=== PATIENT | male | born 1950 | race African-American/Black ===

== ENCOUNTER 2020-07-08 10:54 | Emergency (ER) | payer OTHER ==
[2020-07-08 11:48] LABS: Urine Bacteria >50 /HPF (NONE SEEN); Urine RBC >50 /HPF (NONE SEEN)
[2020-07-08 11:55] LABS: Absolute Lymphocytes (CBC) 1.2 K/uL (0.7-4.9); Basophils % 0.8 % (0-1.3); Hematocrit 28.1 % (39.6-49.0); Lymphocytes % 15.7 % (15.3-44.8); MPV 7.1 fL (7.6-11.3); RBC Red Blood Cell Count 3.47 M/uL (4.33-5.43)
[2020-07-08 11:58] LABS: Protime INR 1.97
[2020-07-08 12:09] LABS: Potassium 3.8 mmol/L (3.5-5.1)
[2020-07-08] MEDS ORDERED: CEFTRIAXONE/SWI 1gm 1 GM/10 ML SYR ONE (13:23)
--- NOTE | 2020-07-08 14:47 | ER ---
Nurse's Notes [facility] Name: Eliezer Menjivar Age: 69 yrs Sex: Male : 1950 Arrival Date: 07/08/2020 Time: 11:06 Bed 19 Private MD: Diagnosis: Hematuria, unspecified;Urinary tract infection, site not specified Presentation: 07/08 11:06 Chief complaint: EMS states: "pt is from [facility] and the facility reported jd3 that he was having some blood noted in his Menendez cath yesterday, they irrigated it and it was ok, but they went to change it out today and they noticed dark red blood noted in the cath. pt reported mild pain.". Coronavirus screen: At this time, the client does not indicate any symptoms associated with coronavirus-19. Ebola Screen: Patient negative for fever greater than or equal to 101.5 degrees Fahrenheit, and additional compatible Ebola Virus Disease symptoms. Initial Sepsis Screen: Does the patient meet any 2 criteria? No. Patient's initial sepsis screen is negative. Does the patient have a suspected source of infection? No. Patient's initial sepsis screen is negative. Risk Assessment: Do you want to hurt yourself or someone else? Patient reports no desire to harm self or others. Onset of symptoms was July 08, 2020. 11:06 Method Of Arrival: EMS: [facility] jd3 11:06 Acuity: REYNALDO 3 jd3 Historical: - Allergies: 11:14 No Known Allergies; jd3 - PMHx: 11:14 CVA; CHF; jd3 - Immunization history:: Adult Immunizations up to date. - Social history:: Smoking status: Patient denies any tobacco usage or history of. - Family history:: not pertinent. - Hospitalizations: : No recent hospitalization is reported. Screenin:19 Abuse screen: Denies threats or abuse. Nutritional screening: No deficits noted. jd3 Tuberculosis screening: No symptoms or risk factors identified. Fall Risk Ambulatory Aid- None/Bed Rest/Nurse Assist (0 pts). Gait- Normal/Bed Rest/Wheelchair (0 pts) Mental Status- Oriented to own ability (0 pts). Total Huggins Fall Scale indicates No Risk (0-24 pts). Assessment: 11:17 General: Appears in no apparent distress. uncomfortable, Behavior is calm, cooperative, jd3 appropriate for age. Pain: Complains of pain in abdomen Quality of pain is described as aching, pressure. Neuro: Level of Consciousness is awake, alert, obeys commands, Oriented to person, place, time, situation. Cardiovascular: Denies chest pain, Capillary refill < 3 seconds Patient's skin is warm and dry. Respiratory: Airway is patent Respiratory effort is even, unlabored, Respiratory pattern is regular, symmetrical. GI: No signs and/or symptoms were reported involving the gastrointestinal system. : Menendez in place Urine is travis blood. EENT: No signs and/or symptoms were reported regarding the EENT system. Derm: Skin is intact, Skin is dry, Skin is normal, Skin temperature is warm. Musculoskeletal: Circulation, motion, and sensation intact. Range of motion: intact in all extremities. 13:01 Reassessment: Patient appears in no apparent distress at this time. No changes from jd3 previously documented assessment. Patient and/or family updated on plan of care and expected duration. Pain level reassessed. Patient is alert, oriented x 3, equal unlabored respirations, skin warm/dry/pink. 14:08 Reassessment: Patient appears in no apparent distress at this time. Patient and/or jd3 family updated on plan of care and expected duration. Pain level reassessed. Patient is alert, oriented x 3, equal unlabored respirations, skin warm/dry/pink. catheter irrigated. pink colored urine now with no obstruction at the time. 15:14 Reassessment: Patient appears in no apparent distress at this time. Patient and/or jd3 family updated on plan of care and expected duration. Pain level reassessed. Patient is alert, oriented x 3, equal unlabored respirations, skin warm/dry/pink. report attempt made to [facility] reporting they need a fax of the clinical. secretary administrative assistant notified. 16:27 Reassessment: [facility] en route ETA 20 minutes. iw 16:43 Reassessment: Patient appears in no apparent distress at this time. Patient and/or jd3 family updated on plan of care and expected duration. Pain level reassessed. Patient is alert, oriented x 3, equal unlabored respirations, skin warm/dry/pink. Vital Signs: 11:14 BP 108 / 71; Pulse 79; Resp 16 S; Temp 99.1(O); Pulse Ox 100% on R/A; Weight 77.11 kg jd3 (R); Height 6 ft. 2 in. (187.96 cm) (R); Pain 6/10; 13:01 BP 110 / 70; Pulse 68; Resp 17 S; Pulse Ox 100% on R/A; jd3 14:09 BP 120 / 73; Pulse 69; Resp 17 S; Pulse Ox 100% on R/A; jd3 15:14 BP 103 / 64; Pulse 65; Resp 17 S; Pulse Ox 100% on R/A; jd3 16:43 BP 109 / 65; Pulse 64; Resp 17 S; Pulse Ox 97% on R/A; jd3 11:14 Body Mass Index 21.83 (77.11 kg, 187.96 cm) jd3 ED Course: 11:06 Patient arrived in ED. jd3 11:06 Mauri Calderon, DARYL is Primary Nurse. jd3 11:06 Armond Lechuga MD is Attending Physician. rn 11:11 Triage completed. jd3 11:15 Arm band placed on. jd3 11:20 Patient has correct armband on for positive identification. Bed in low position. Call jd3 light in reach. Side rails up X 1. Pulse ox on. NIBP on. 11:50 Inserted saline lock: 20 gauge in left antecubital area, using aseptic technique. Blood jd3 collected. 12:26 patient's family member Franchesca called to leave her phone number in case we had any eb questions, [phone]. 14:23 No provider procedures requiring assistance completed. jd3 17:14 IV discontinued, intact, bleeding controlled, No redness/swelling at site. Pressure jd3 dressing applied. Administered Medications: 13:12 Drug: Rocephin 1 grams Route: IV; Rate: calculated rate; Site: left antecubital; jd3 13:45 Follow up: Response: No adverse reaction; IV Status: Completed infusion; IV Intake: 24wade5 Intake: 13:45 IV: 10ml; Total: 10ml. jd3 Outcome: 14:45 Discharge ordered by . rn 17:13 Discharged to [facility]. Transfer form completed. report given to [facility] jd3 crew 17:13 Condition: stable 17:13 Discharge instructions given to patient, [facility], EMS, Instructed on discharge instructions, follow up and referral plans. medication usage, Demonstrated understanding of instructions, follow-up care, medications, Prescriptions given X 1. 17:14 Patient left the ED. bert Addendum: 07/11/2020 16:45 Addendum: Culture Results: Positive urine culture. Faxed results to [address] (Spoke to Nurse Asha). Signatures: Carri Menjivar RN RN iw Nieto, Roman, MD MD rn Calderon, Audri, RN RN aa5 Mauri Calderon RN RN Brea Durham
--- NOTE | 2020-07-08 14:47 | EDPHYS ---
Physician Documentation [facility] Name: Eliezer Menjivar Age: 69 yrs Sex: Male : 1950 Arrival Date: 07/08/2020 Time: 11:06 Bed 19 Private MD: ED Physician Armond Lechuga HPI: 07/08 11:27 This 69 yrs old Black Male presents to ER via EMS with complaints of blood in urine. rn 11:27 The patient presents with urinary symptoms, hematuria. rn 11:28 Onset: The symptoms/episode began/occurred yesterday. Modifying factors: The symptoms rn are alleviated by nothing, the symptoms are aggravated by nothing. Severity of symptoms: At their worst the symptoms were mild, in the emergency department the symptoms are unchanged. It is unknown whether or not the patient has had similar symptoms in the past. The patient has not recently seen a physician. Per EMS report, urine catheter changed, and since then noticed blood in bag, reports was feeling fine prior to change, didn't know why was being changed, now here because of blood. Denies abd pain, no blood thinners. Reports mild irritation at penis.. Historical: - Allergies: 11:14 No Known Allergies; jd3 - PMHx: 11:14 CVA; CHF; jd3 - Immunization history:: Adult Immunizations up to date. - Social history:: Smoking status: Patient denies any tobacco usage or history of. - Family history:: not pertinent. - Hospitalizations: : No recent hospitalization is reported. ROS: 11:28 Constitutional: Negative for fever, chills, and weight loss, Eyes: Negative for injury, rn pain, redness, and discharge, Cardiovascular: Negative for chest pain, palpitations, and edema, Respiratory: Negative for shortness of breath, cough, wheezing, and pleuritic chest pain, Abdomen/GI: Negative for abdominal pain, nausea, vomiting, diarrhea, and constipation, Back: Negative for injury and pain, : + penile pain and blood in urine MS/Extremity: Negative for injury and deformity, Skin: Negative for injury, rash, and discoloration, Neuro: Negative for headache, weakness, numbness, tingling, and seizure. Exam: 11:28 Constitutional: This is a well developed, well nourished patient who is awake, alert, rn and in no acute distress. Head/Face: Normocephalic, atraumatic. Cardiovascular: Regular rate and rhythm. No pulse deficits. Respiratory: No increased work of breathing, no retractions or nasal flaring. Abdomen/GI: soft, non-tender Male : + bradshaw catheter in place, dark blood in urine MS/ Extremity: Pulses equal, no cyanosis. Neuro: Awake and alert, GCS 15 Vital Signs: 11:14 BP 108 / 71; Pulse 79; Resp 16 S; Temp 99.1(O); Pulse Ox 100% on R/A; Weight 77.11 kg jd3 (R); Height 6 ft. 2 in. (187.96 cm) (R); Pain 6/10; 13:01 BP 110 / 70; Pulse 68; Resp 17 S; Pulse Ox 100% on R/A; jd3 14:09 BP 120 / 73; Pulse 69; Resp 17 S; Pulse Ox 100% on R/A; jd3 15:14 BP 103 / 64; Pulse 65; Resp 17 S; Pulse Ox 100% on R/A; jd3 16:43 BP 109 / 65; Pulse 64; Resp 17 S; Pulse Ox 97% on R/A; jd3 11:14 Body Mass Index 21.83 (77.11 kg, 187.96 cm) jd3 MDM: 11:06 Patient medically screened. rn 14:43 Differential diagnosis: UTI, Bradshaw catheter problem, urethritis, traumatic bradshaw credit intern. Data reviewed: vital signs, nurses notes, lab test result(s), and as a result, I will discharge patient. Counseling: I had a detailed discussion with the patient and/or guardian regarding: the historical points, exam findings, and any diagnostic results supporting the discharge/admit diagnosis, lab results, the need for outpatient follow up, to return to the emergency department if symptoms worsen or persist or if there are any questions or concerns that arise at home. Response to treatment: the patient's symptoms have markedly improved after treatment, and as a result, I will discharge patient. Special discussion: I discussed with the patient/guardian in detail that at this point there is no indication for admission to the hospital. It is understood, however, that if the symptoms persist or worsen the patient needs to return immediately for re-evaluation. ED course: Urine cleared easily after irrigation, + UTI, stable vitals, will dc home with abx. . 02/21 11:11 Order name: Urine Culture rn 07/08 11:11 Order name: Urine Microscopic Only rn 07/08 11:11 Order name: CBC with Diff rn 07/08 11:11 Order name: Basic Metabolic Panel rn 07/08 11:11 Order name: Protime (+inr) rn 07/08 11:11 Order name: Ptt, Activated rn 07/08 11:12 Order name: Urine Culture EDW[place] 07/08 11:12 Order name: Urine Microscopic Only; Complete Time: 12:55 [facility] 07/08 11:12 Order name: CBC with Automated Diff; Complete Time: 12:55 [facility] 07/08 11:12 Order name: Basic Metabolic Panel; Complete Time: 12:55 [facility] 07/08 11:12 Order name: Protime (+INR); Complete Time: 12:55 [facility] 07/08 11:12 Order name: PTT, Activated Partial Thromb; Complete Time: 12:55 [facility] 07/08 11:11 Order name: IV Start; Complete Time: 11:50 rn 07/08 11:11 Order name: Bladder Irrigation; Complete Time: 14:23 rn Administered Medications: 13:12 Drug: Rocephin 1 grams Route: IV; Rate: calculated rate; Site: left antecubital; jd3 13:45 Follow up: Response: No adverse reaction; IV Status: Completed infusion; IV Intake: [id number] Disposition: 07/08/20 14:45 Discharged to Home. Impression: Hematuria, unspecified, Urinary tract infection, site not specified. - Condition is Stable. - Discharge Instructions: Hematuria, Adult, Urinary Tract Infection, Adult. - Prescriptions for cefpodoxime 100 mg Oral Tablet - take 2 tablet by ORAL route every 12 hours for 10 days take with food; 40 tablet. - Medication Reconciliation Form, Thank You Letter, Antibiotic Education, Prescription Opioid Use, SBAR form form. - Follow up: Private Physician; When: As needed; Reason: Recheck today's complaints, Re-evaluation by your physician. - Problem is new. - Symptoms have improved. Signatures: Dispatcher [employer] EDMS Armond Lechuga MD MD rn Davies, Jonathon, RN RN jd3 Corrections: (The following items were deleted from the chart) 11:50 11:11 Urine Dipstick-Ancillary ordered. rn jd3 17:14 14:45 07/08/2020 14:45 Discharged to Home. Impression: Hematuria, unspecified; Urinary jd3 tract infection, site not specified. Condition is Stable. Forms are Medication Reconciliation Form, Thank You Letter, Antibiotic Education, Prescription Opioid Use. Follow up: Private Physician; When: As needed; Reason: Recheck today's complaints, Re-evaluation by your physician. Problem is new. Symptoms have improved. alex
[2020-07-08 17:54] VITALS: TEMP 99.1
[2020-07-08 17:59] VITALS: BP 109/65; O2SAT 97
== END 2020-07-08 17:14 | disposition home or self-care (01) ==
LOC: ER 10:54
DX: N39.0 Urinary tract infection, site not specified (principal)
CPT/HCPCS: 96365; 87088; 85025; 87086; 80048; 36415; 85610; 85730; 87077 ×2; 87186 ×2; 81015; 99284; J0696

== ENCOUNTER 2020-08-29 10:43 | Inpatient (IN) | payer OTHER ==
--- OUTSIDE RECORDS SUMMARY | 2020-08-29 10:49 | XMS REPORT | Continuity of Care Document ---
:1950 Author Organization [facility] t Address [address] [place] [address] Care Team Providers Name Role Phone Joseph Rogers MD Attending Clinician Martita SANDERS, Manjula Attending Clinician Payers Payer Name Policy Type Policy Number Effective Date Expiration Date S ource Problems This patient has no known problems. Allergies, Adverse Reactions, Alerts Allergy Allergy Status Severity Reaction(s) Onset Inactive Treating Comm ents Source Name Type Date Date Clinician No Known DA Active U 2019-05 [facility] 2-04 Clear s 00:00: Caldera [address] [place] [address] No Known DA Active U 2019-05 [facility] Allergie 1-21 Clear s 00:00: Caldera 00 [facility] Medications This patient has no known medications. Procedures This patient has no known procedures. Encounters Start End Encounter Admission Attending Care Care Encounter Source Date/Time Date/Time Type Type Clinicians Facility Department ID 2019-08-15 2019-08-15 Refill CATRACHO Rogers [id number] 00:00:00 00:00:00 Joseph Caldwell [facility] [id number] Cancer 4.2.7.2.686 Center - [id number] MDA 204 2019-08-15 2019-08-15 Refill Yamilet Anders [id number] 00:00:00 [facility]:00:00 [facility] 350.1.13.10 Cancer 4.2.7.2.686 [facility] [id number] [facility] 204 2019-08-15 2019-08-15 Telephone Yamilet Anders [id number] 00:00:00 00:00:00 [facility] 350.1.13.10 [facility] 4.2.7.2.686 [id number] 082019-01-13 2019-01-13 Office Sue [facility] [id number] 13:25:13 14:31:06 Visit Joseph Caldwell [facility] [id number] Cancer 4.2.7.2.686 [facility] [id number] [facility] Results Test Description Test Time Test Comments Results Result Comments Source COVID 19 Asymptomatic IH AG 2020-05-18 06:28:00 Test Item Value Reference Range Interpretation Comme nts COVID 19 Asymptomatic IH AG Negative Negative A negative result is presumptive and (test code = COVNONPUIAG) sh ould be confirmedwith an FDA authorized mole cular assay, if necessary forpa tient management.A positive result does not rule out co-infections w ithother pathogens.This test detects both viable (live) a nd non-viable,SARS -CoV, and SARS-CoV-2. Test performanc e depends on theamount of vi joby (antigen) in the sample.This leanna t has not been FDA cleared or appr prachi; the test hasbeen authori zed by FDA under an Emergency Use A uthorization(EUA) for use by juanato deshawn certified under the CLIA thatme et the requirements to perform mode rate, high or waivedcomplexit y tests. COMMENTS: FOR POST ACUTE SNF PLACEMENTRENAL FUNCTION [id number] 08:26:00 Test Item Value Reference Range Interpretation Comments SODIUM (test code = NA) 131 mEq/L 134-147 L POTASSIUM (test code = 4.8 mEq/L 3.4-5.0 N K) CHLORIDE (test code = 98 mEq/L 100-108 L CL) CARBON DIOXIDE (test 24 mEq/l 21-33 N code = CO2) ANION GAP (test code = 14 0-20 N GAP) GLUCOSE (test code = 79 mg/dL 70-110 N GLU) BLOOD UREA NITROGEN 46 mg/dL 7-18 H (test code = BUN) GLOMERULAR FILTRATION 9.2 80-90 L Units of measure = RATE (test code = GFR) ml/mi n/1.73 m2 CREATININE (test code = 6.1 mg/dL 0.6-1.3 H CREAT) ALBUMIN (test code = 3.20 g/dL 3.4-5.0 L ALB) CALCIUM (test code = CA) 9.7 mg/dL 8.0-10.5 N PHOSPHOROUS (test code = 3.6 MG/DL 2.5-4.9 N PHOS) CBC W/AUTO [id number] 07:56:00 Test Item Value Reference Range Interpretation Comments WHITE BLOOD CELL (test code = 9.3 x10 3/uL 4.5-11.0 N WBC) RED BLOOD CELL (test code = 3.09 x10 6/uL 4.00-5.60 L RBC) HEMOGLOBIN (test code = HGB) 8.3 g/dL 12.5-16.9 L HEMATOCRIT (test code = HCT) 27.7 % 37.5-50.7 L MEAN CELL VOLUME (test code = 89.6 fL 81.0-99.0 N MCV) MEAN CELL HGB (test code = MCH) 26.9 pg 27.0-33.0 L MEAN CELL HGB CONCETRATION 30.0 g/dL 33.0-37.0 L (test code = MCHC) RED CELL DISTRIBUTION WIDTH CV 16.8 % 11.5-14.5 H (test code = RDW) RED CELL DISTRIBUTION WIDTH SD 54.4 fL 37.0-54.0 H (test code = RDW-SD) PLATELET COUNT (test code = 229 x10 3/uL 150-400 N PLT) MEAN PLATELET VOLUME (test code 8.9 fL 7.0-9.0 N = MPV) NEUTROPHIL % (test code = NT%) 66.7 % 56.0-77.0 N IMMATURE GRANULOCYTE % (test 0.5 % 0.0-2.0 N code = IG%) LYMPHOCYTE % (test code = LY%) 20.8 % 14.0-32.0 N MONOCYTE % (test code = MO%) 9.7 % 4.8-9.0 H EOSINOPHIL % (test code = EO%) 1.5 % 0.3-3.7 N BASOPHIL % (test code = BA%) 0.8 % 0.0-2.0 N NUCLEATED RBC % (test code = 0.0 % 0-0 N NRBC%) NEUTROPHIL # (test code = NT#) 6.18 x10 3/uL 2.0-7.6 N IMMATURE GRANULOCYTE # (test 0.05 x10 3/uL 0.00-0.03 H code = IG#) LYMPHOCYTE # (test code = LY#) 1.93 x10 3/uL 1.0-3.8 N MONOCYTE # (test code = MO#) 0.90 x10 3/uL 0.1-0.8 H EOSINOPHIL # (test code = EO#) 0.14 x10 3/uL 0.0-0.2 N BASOPHIL # (test code = BA#) 0.07 x10 3/uL 0.0-0.2 N NUCLEATED RBC # (test code = 0.00 x10 3/uL 0.0-0.1 N NRBC#) MANUAL DIFF REQUIRED (test code NO = MDIFF) CBC W/AUTO [id number] 07:47:00 Test Item Value Reference Range Interpretation Comments WHITE BLOOD CELL (test code = x10 3/uL 4.5-11.0 WBC) RED BLOOD CELL (test code = RBC) x10 6/uL 4.00-5.60 HEMOGLOBIN (test code = HGB) g/dL 12.5-16.9 HEMATOCRIT (test code = HCT) % 37.5-50.7 MEAN CELL VOLUME (test code = fL 81.0-99.0 MCV) MEAN CELL HGB (test code = MCH) pg 27.0-33.0 MEAN CELL HGB CONCETRATION (test g/dL 33.0-37.0 code = MCHC) RED CELL DISTRIBUTION WIDTH CV % 11.5-14.5 (test code = RDW) PLATELET COUNT (test code = PLT) 229 x10 3/uL 150-400 N NEUTROPHIL % (test code = NT%) % 56.0-77.0 LYMPHOCYTE % (test code = LY%) % 14.0-32.0 NEUTROPHIL # (test code = NT#) x10 3/uL 2.0-7.6 LYMPHOCYTE # (test code = LY#) x10 3/uL 1.0-3.8 MANUAL DIFF REQUIRED (test code = IFF) - XR CHEST 1 [id number] 15:22:00 [facility] : 1950 Sex: M FAX: Hans Escobar [phone] [place]: St: ADM Name: JAMAAL ROGERS [facility] : 1950 Age/S: 69/M [address] [place] [address] Unit #: [id number] Loc: [address] [address] Phys: Hans Cotton MD Acct: [id number] Dis Date: Status: ADM IN PHONE #: [phone] Exam Date: 05/14/2020 1564 FAX #: [phone] Reason: RULE OUT TB EXAMS: CPT CODE: [id number] XR CHEST 1 V [id number] Single view chest: HISTORY: Evaluate for tuberculosis. COMPARISON: Chest x-ray 04/20/2020; chest CT 04/13/2020 FINDINGS: Both lungs are clear. No infiltrate or pleural fluid. The heart and mediastinal contours are stable. Stable position of a right dialysis catheter. Stable tracheal deviation to the right of midline from a calcified left thyroid mass. IMPRESSION: 1. No active process. 2. Calcified left thyroid mass with mild tracheal deviation to the right SL: EG-H at 1522 Reported and signed by: Nicola Moran M.D. CC: Hans Cotton MD Technologist: RT Maurilio(R) Trnscrd Date/Time/By: 05/14/2020 (152) : By: DayETG Orig Print D/T: S: 05/14/2020 (9525) PAGE 1 Signed ReportSURGICAL PATH [id number] 10:34:00 Test Item Value Reference Range Interpretation Comments SURGICAL PATH SPECIMENS (test code = SURG) RUN DATE: 05/12/20 [facility] *LIVE* PAGE 1 RUN TIME: 1035 Specimen Inquiry RUN USER: INTERFACE PATIENT: JAMAAL ROGERS LOC: [facility] U #: [id number] AGE/SX: 69/M ROOM: [facility] RE04/20/20REG DR: Hans Cotton MD : 52 BED: 1 DIS: STATUS: ADM IN TLOC: SPEC #: [id number] RECD: 05/09/20 STATUS: FEMI MAGUIRE #: [id number] LATA: 05/08/20-1318 [facility] [address]: Hans Cotton MD ENTERED: 05/11/20 SP TYPE: SURG SPEC OTHR DR: No Primary or Family Physician Self Referred Jurgen Burgess Eric Joseph MD Gray, Nicholas PA-C Mahmood, Khalid MD Rodriguez, Gabriel MD Uzodinma, Obinna MDORDERED: GROSS AND MICRO CODES: [id number] - BONY TISSUE, NO COPIES TO: No Primary or Family [place] [address] [facility] [address] [place], [place] [id number] Nicola Cruz MD [address] [facility] [address] [place] [address] Temo Aparicio PA-C [address] [facility] [address] [place] [address] Kit Reyes MD [address] [place] [address] Ant Perez MD [address] [facility] [address] [place], [place] [id number] CONTINUED ON NEXT PAGE RUN DATE: 05/12/20 [facility] *LIVE* PAGE 2 RUN TIME: 1035 Specimen Inquiry RUN USER: INTERFACE SPEC #: [id number] PATIENT: JAMAAL ROGERS #[id number] (Continued) --- COPIES TO: (Continued) Hans Cotton MD [address] [place] [address] Saleem Zapata MD [address] [place] [address] PROCEDURES: GROSS AND MICRO (Incomplete) TISSUES: 1. BONY TISSUE, NOS - Bone, right iliac, bx. FINAL DIAGNOSIS Bone, right iliac, bx.: Metastatic adenocarcinoma consistent with prostate primary. GROSS AND MICROSCOPIC GROSS EXAMINATION: Location: Bone, right iliac, bx. Dimensions and appearance: 1.5 x 0.3 x 0.3 cm. Sections: Entirely submitted. Received in formalin are the above designated biopsies. They are composed of yellow-white fibrofatty tissue. They are submitted for microscopic examination as indicated above. MICROSCOPIC EXAMINATION: Sections of the "Bone, right iliac, bx." reveal changes of metastatic adenocarcinoma consistent with the clinical history of metastatic prostate cancer. Tumor and fibrous tissue replaces the intertrabecular spaces. POST-OP DIAGNOSIS Metastatic prostate cancer PRE-OP DIAGNOSIS Metastatic prostate cancer REVIEWED BY: BRENDAN CONTINUED ON NEXT PAGE RUN DATE: 05/12/20 [facility] *LIVE* PAGE 3 RUN TIME: 1035 Specimen Inquiry RUN USER: INTERFACE SPEC #: [id number] PATIENT: JAMAAL ROGERS #[id number] (Continued) --- Signed SIGNATURE ON FILE Lucina Hyde MD 05/12/20 1034 END OF REPORT BASIC METABOLIC [id number] 08:10:00 Test Item Value Reference Range Interpretation Comments SODIUM (test code = NA) 133 mEq/L 134-147 L POTASSIUM (test code = 4.2 mEq/L 3.4-5.0 N K) CHLORIDE (test code = 97 mEq/L 100-108 L CL) CARBON DIOXIDE (test 28 mEq/l 21-33 N code = CO2) ANION GAP (test code = 13 0-20 N GAP) GLUCOSE (test code = 99 mg/dL 70-110 GLU) BLOOD UREA NITROGEN 44 mg/dL 7-18 H (test code = BUN) GLOMERULAR FILTRATION 10.0 80-90 L Units of measure = RATE (test code = GFR) ml/mi n/1.73 m2 CREATININE (test code = 5.7 mg/dL 0.6-1.3 H CREAT) CALCIUM (test code = 9.2 mg/dL 8.0-10.5 N CA) [id number] 08:10:00 Test Item Value Reference Range Interpretation Comments PHOSPHOROUS (test code = PHOS) 3.9 MG/DL 2.5-4.9 N CBC W/AUTO [id number] 07:30:00 Test Item Value Reference Range Interpretation Comments WHITE BLOOD CELL (test code = 11.3 x10 3/uL 4.5-11.0 H WBC) RED BLOOD CELL (test code = 3.05 x10 6/uL 4.00-5.60 L RBC) HEMOGLOBIN (test code = HGB) 8.2 g/dL 12.5-16.9 L HEMATOCRIT (test code = HCT) 27.3 % 37.5-50.7 L MEAN CELL VOLUME (test code = 89.5 fL 81.0-99.0 N MCV) MEAN CELL HGB (test code = MCH) 26.9 pg 27.0-33.0 L MEAN CELL HGB CONCETRATION 30.0 g/dL 33.0-37.0 L (test code = MCHC) RED CELL DISTRIBUTION WIDTH CV 15.9 % 11.5-14.5 H (test code = RDW) RED CELL DISTRIBUTION WIDTH SD 51.9 fL 37.0-54.0 N (test code = RDW-SD) PLATELET COUNT (test code = 231 x10 3/uL 150-400 N PLT) MEAN PLATELET VOLUME (test code 9.1 fL 7.0-9.0 H = MPV) NEUTROPHIL % (test code = NT%) 75.5 % 56.0-77.0 N IMMATURE GRANULOCYTE % (test 0.6 % 0.0-2.0 N code = IG%) LYMPHOCYTE % (test code = LY%) 15.0 % 14.0-32.0 N MONOCYTE % (test code = MO%) 8.4 % 4.8-9.0 N EOSINOPHIL % (test code = EO%) 0.2 % 0.3-3.7 L BASOPHIL % (test code = BA%) 0.3 % 0.0-2.0 N NUCLEATED RBC % (test code = 0.0 % 0-0 N NRBC%) NEUTROPHIL # (test code = NT#) 8.57 x10 3/uL 2.0-7.6 H IMMATURE GRANULOCYTE # (test 0.07 x10 3/uL 0.00-0.03 H code = IG#) LYMPHOCYTE # (test code = LY#) 1.70 x10 3/uL 1.0-3.8 N MONOCYTE # (test code = MO#) 0.95 x10 3/uL 0.1-0.8 H EOSINOPHIL # (test code = EO#) 0.02 x10 3/uL 0.0-0.2 N BASOPHIL # (test code = BA#) 0.03 x10 3/uL 0.0-0.2 N NUCLEATED RBC # (test code = 0.00 x10 3/uL 0.0-0.1 N NRBC#) MANUAL DIFF REQUIRED (test code NO = MDIFF) CBC W/AUTO [id number] 07:29:00 Test Item Value Reference Range Interpretation Comments WHITE BLOOD CELL (test code = x10 3/uL 4.5-11.0 WBC) RED BLOOD CELL (test code = RBC) x10 6/uL 4.00-5.60 HEMOGLOBIN (test code = HGB) g/dL 12.5-16.9 HEMATOCRIT (test code = HCT) % 37.5-50.7 MEAN CELL VOLUME (test code = fL 81.0-99.0 MCV) MEAN CELL HGB (test code = MCH) pg 27.0-33.0 MEAN CELL HGB CONCETRATION (test g/dL 33.0-37.0 code = MCHC) RED CELL DISTRIBUTION WIDTH CV % 11.5-14.5 (test code = RDW) PLATELET COUNT (test code = PLT) 231 x10 3/uL 150-400 N NEUTROPHIL % (test code = NT%) % 56.0-77.0 LYMPHOCYTE % (test code = LY%) % 14.0-32.0 NEUTROPHIL # (test code = NT#) x10 3/uL 2.0-7.6 LYMPHOCYTE # (test code = LY#) x10 3/uL 1.0-3.8 MANUAL DIFF REQUIRED (test code = MDIFF) [id number] 11:01:00 Test Item Value Reference Range Interpretation Comments GLUBED (test code = 143 MG/DL 70-110 H Performe d by certified GLUBED) 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 at [facility] BASIC METABOLIC [id number] 13:34:00 Test Item Value Reference Range Interpretation Comments SODIUM (test code = NA) 128 mEq/L 134-147 L POTASSIUM (test code = 4.2 mEq/L 3.4-5.0 N K) CHLORIDE (test code = 92 mEq/L 100-108 L CL) CARBON DIOXIDE (test 28 mEq/l 21-33 N code = CO2) ANION GAP (test code = 12 0-20 N GAP) GLUCOSE (test code = 144 mg/dL 70-110 H GLU) BLOOD UREA NITROGEN 36 mg/dL 7-18 H (test code = BUN) GLOMERULAR FILTRATION 9.4 80-90 L Units of measure = RATE (test code = GFR) ml/mi n/1.73 m2 CREATININE (test code = 6.0 mg/dL 0.6-1.3 H CREAT) CALCIUM (test code = 9.2 mg/dL 8.0-10.5 N CA) CBC W/AUTO [id number] 13:21:00 Test Item Value Reference Range Interpretation Comments WHITE BLOOD CELL (test code = x10 3/uL 4.5-11.0 WBC) RED BLOOD CELL (test code = RBC) x10 6/uL 4.00-5.60 HEMOGLOBIN (test code = HGB) g/dL 12.5-16.9 HEMATOCRIT (test code = HCT) % 37.5-50.7 MEAN CELL VOLUME (test code = fL 81.0-99.0 MCV) MEAN CELL HGB (test code = MCH) pg 27.0-33.0 MEAN CELL HGB CONCETRATION (test g/dL 33.0-37.0 code = MCHC) RED CELL DISTRIBUTION WIDTH CV % 11.5-14.5 (test code = RDW) PLATELET COUNT (test code = PLT) 181 x10 3/uL 150-400 N NEUTROPHIL % (test code = NT%) % 56.0-77.0 LYMPHOCYTE % (test code = LY%) % 14.0-32.0 NEUTROPHIL # (test code = NT#) x10 3/uL 2.0-7.6 LYMPHOCYTE # (test code = LY#) x10 3/uL 1.0-3.8 MANUAL DIFF REQUIRED (test code = MDIFF) CBC W/AUTO [id number] 13:21:00 Test Item Value Reference Range Interpretation Comments WHITE BLOOD CELL (test code = 11.1 x10 3/uL 4.5-11.0 H WBC) RED BLOOD CELL (test code = 3.30 x10 6/uL 4.00-5.60 L RBC) HEMOGLOBIN (test code = HGB) 9.0 g/dL 12.5-16.9 L HEMATOCRIT (test code = HCT) 28.8 % 37.5-50.7 L MEAN CELL VOLUME (test code = 87.3 fL 81.0-99.0 N MCV) MEAN CELL HGB (test code = MCH) 27.3 pg 27.0-33.0 N MEAN CELL HGB CONCETRATION 31.3 g/dL 33.0-37.0 L (test code = MCHC) RED CELL DISTRIBUTION WIDTH CV 15.9 % 11.5-14.5 H (test code = RDW) RED CELL DISTRIBUTION WIDTH SD 49.9 fL 37.0-54.0 N (test code = RDW-SD) PLATELET COUNT (test code = 181 x10 3/uL 150-400 N PLT) MEAN PLATELET VOLUME (test code 8.8 fL 7.0-9.0 N = MPV) NEUTROPHIL % (test code = NT%) 81.8 % 56.0-77.0 H IMMATURE GRANULOCYTE % (test 0.5 % 0.0-2.0 N code = IG%) LYMPHOCYTE % (test code = LY%) 11.4 % 14.0-32.0 L MONOCYTE % (test code = MO%) 5.8 % 4.8-9.0 N EOSINOPHIL % (test code = EO%) 0.1 % 0.3-3.7 L BASOPHIL % (test code = BA%) 0.4 % 0.0-2.0 N NUCLEATED RBC % (test code = 0.0 % 0-0 N NRBC%) NEUTROPHIL # (test code = NT#) 9.10 x10 3/uL 2.0-7.6 H IMMATURE GRANULOCYTE # (test 0.05 x10 3/uL 0.00-0.03 H code = IG#) LYMPHOCYTE # (test code = LY#) 1.27 x10 3/uL 1.0-3.8 N MONOCYTE # (test code = MO#) 0.64 x10 3/uL 0.1-0.8 N EOSINOPHIL # (test code = EO#) 0.01 x10 3/uL 0.0-0.2 N BASOPHIL # (test code = BA#) 0.04 x10 3/uL 0.0-0.2 N NUCLEATED RBC # (test code = 0.00 x10 3/uL 0.0-0.1 N NRBC#) MANUAL DIFF REQUIRED (test code NO = MDIFF) - SP DX BONE MARROW BX [id number] 13:03:00 [facility] J[facility]AL [facility] : 1950 Sex: M FAX: Kit Riley MD [phone] [place]: ERICK St: FAX: Hans Doherty [phone] Name: JAMAAL ROGERS [facility] Maria De Jesus Caldera : 1950 Age/S: 69/M [address] [place] [address] Unit #: [id number] Loc: [place] [address] Phys: Kit Reyes MD Acct: [id number] Dis Date: Status: ADM IN PHONE #: [phone] Exam Date: 05/09/2020 1525 FAX #: [phone] Reason: Metastatic prostate cancer EXAMS: CPT CODE: [id number] [place] [id number] PROCEDURE: Fluoroscopy Guided bone lesion biopsy. INDICATION: Right posterior iliac bone sclerotic metastasis. TECHNICAL: Fluoroscopic time was 0.9 minutes. Reference Air Kerma Dose 24 mGy. MODERATE SEDATION: I supervised moderate sedation during this procedure. The patient was monitored by nurse using automated blood pressure, EKG and pulse oximetry. The moderate sedation record is permanently stored in the hospital information system. The personal supervised moderate sedation time was 15 minutes. Medicationsadministered: 1 mg of IV Versed and 50 micrograms of IV Fentanyl. COMPARISON: None. PROCEDURE: The procedure, risks, benefits and alternatives were discussed. Informed consent was obtained. Timeout was performed prior to the procedure. The patient was placed in the prone position. The overlying skin was sterilely prepped and draped. 1% lidocaine was used for local anesthesia. Using fluoroscopy guidance, 11- gauge needle was advanced into the posterior right iliac bone sclerotic lesion. 2 cm long 3 core biopsywas then obtained utilizing the guide needle. The biopsy sample was placed in formalin container and appeared grossly adequate. Pressure was applied at the puncture site with adequate hemostasis. No evident complications and the patient had no complaints. IMPRESSION: 1. Technically successful fluoroscopy-guided right posterior iliac bone sclerotic lesion biopsy. Final pathology report is pending. SL: [id number] at 1303 Reported and signed by: Savanah Santizo D.O. PAGE 1 Signed Report (CONTINUED) FAX: Kit Riley MD [phone] [place]: St: [facility] FAX: Hans Escobar [phone] Name: JAMAAL ROGERS [facility] Maria De Jesus Caldera : 1950 Age/S: 69/M [address] [place] [address] Blvd Unit #: [id number] Loc: [place] [address] Phys: Kit Reyes MD Acct: [id number] Dis Date: Status:ADM IN PHONE #: [phone] Exam Date: 05/09/2020 1525 FAX #: [phone] Reason: Metastatic prostate cancer EXAMS: CPT CODE: [id number] SP [place]ONE [place] [id number] <Continued> CC: Kit Reyes; Hans Cotton MD Technologist: Divina Meng RT(R) Trnscrd Date/Time/By: 05/10/2020 (3884) : By: [email or web address] Orig Print D/T: S: 05/10/2020 (7899) PAGE 2 Signed ReportPROTHROMBIN [id number] 11:46:00 Test Item Value Reference Range Interpretation Comments PROTHROMBIN TIME 13.3 SECONDS 9.3-12.9 H PATIENT (test code = PTP) INTERNATIONAL NORMAL 1.2 0.8-1.2 N TARGET RATIO (test code = INR BY IN DICATION INR) Indication INR1. Prophyl axis of venous thrombos is 2.0 - 3. 0 (orthopedic jaylon anand), Prophylaxis of venous thrombos is (other than hig h-risk surgery), Paz tment of Deep Vein Thrombosis/Pulm onary Embolism, Preve ntion of systemic emb olism - Tissue heart va lves, Acute Myocardia l Infarction (to prevent systemic embo lism), Valvular heart disease, Atri al Fibrillation, Bileaflet mecha nical valve in aortic position.2. Mec hanical prosthetic valv es (high risk), 2.5 - 3.5 Presence of Lupus Anticoagu lant or Antiphospholi pid Antibodies, Pre vention of systemic e mbolism - Acute Myocard ial Infarction (t o prevent recurre nt infarct). THROMBOPLASTIN TIME [id number] 11:46:00 Test Item Value Reference Range Interpretation Comments THROMBOPLASTIN TIME 28.6 Seconds 25.0-39.5 N Ther apeutic PARTIAL (test code = Range: 50.4 - 88.3 PTT) Seconds Effective 08/31/2018 CBC W/AUTO [id number] 08:50:00 Test Item Value Reference Range Interpretation Comments WHITE BLOOD CELL (test code = 10.8 x10 3/uL 4.5-11.0 N WBC) RED BLOOD CELL (test code = 3.37 x10 6/uL 4.00-5.60 L RBC) HEMOGLOBIN (test code = HGB) 9.3 g/dL 12.5-16.9 L HEMATOCRIT (test code = HCT) 29.9 % 37.5-50.7 L MEAN CELL VOLUME (test code = 88.7 fL 81.0-99.0 MCV) MEAN CELL HGB (test code = MCH) 27.6 pg 27.0-33.0 N MEAN CELL HGB CONCETRATION 31.1 g/dL 33.0-37.0 L (test code = MCHC) RED CELL DISTRIBUTION WIDTH CV 15.9 % 11.5-14.5 H (test code = RDW) RED CELL DISTRIBUTION WIDTH SD 50.3 fL 37.0-54.0 N (test code = RDW-SD) PLATELET COUNT (test code = 187 x10 3/uL 150-400 N PLT) MEAN PLATELET VOLUME (test code 8.5 fL 7.0-9.0 N = MPV) NEUTROPHIL % (test code = NT%) 65.2 % 56.0-77.0 N IMMATURE GRANULOCYTE % (test 0.6 % 0.0-2.0 N code = IG%) LYMPHOCYTE % (test code = LY%) 22.3 % 14.0-32.0 N MONOCYTE % (test code = MO%) 9.7 % 4.8-9.0 H EOSINOPHIL % (test code = EO%) 1.4 % 0.3-3.7 N BASOPHIL % (test code = BA%) 0.8 % 0.0-2.0 N NUCLEATED RBC % (test code = 0.0 % 0-0 N NRBC%) NEUTROPHIL # (test code = NT#) 7.02 x10 3/uL 2.0-7.6 N IMMATURE GRANULOCYTE # (test 0.07 x10 3/uL 0.00-0.03 H code = IG#) LYMPHOCYTE # (test code = LY#) 2.40 x10 3/uL 1.0-3.8 N MONOCYTE # (test code = MO#) 1.04 x10 3/uL 0.1-0.8 H EOSINOPHIL # (test code = EO#) 0.15 x10 3/uL 0.0-0.2 N BASOPHIL # (test code = BA#) 0.09 x10 3/uL 0.0-0.2 N NUCLEATED RBC # (test code = 0.00 x10 3/uL 0.0-0.1 N NRBC#) MANUAL DIFF REQUIRED (test code NO = MDIFF) - DUP VEIN [id number] 14:19:00 [facility] : 1950 Sex: M Name: JAMAAL ROGERS [facility] [place] : 1950 Age/S: 69 / M [address] [place] [address] Unit #: [id number] Loc: [place] [address] Phys: Hans Cotton MD Acct: [id number] Dis Date: Status: ADM IN PHONE #: [phone] Exam Date: 05/08/2020 1130 FAX #: [phone] Reason: RUE SWELLING. ASSESS FOR DVT EXAMS: CPT CODE: [id number] DUP VEIN UNI/LTD 47361 P ROCEDURE: UNILATERAL UPPER EXTREMITY VENOUS ULTRASOUND INDICATION: 69-year-old male with right upper extremity swelling COMPARISON: None. TECHNIQUE: Sonographic evaluation of the right upper extremity veins was performed using high resolution B-mode imaging, pulse and color Doppler imaging. FINDINGS: Thrombus identified in the right internal jugular vein and subclavian vein. Additional thrombus noted in a short segment of one of the brachial veins. The right axillary vein, radial vein, and ulnar vein are patent with normal waveforms. Thrombus noted in a superficial vein in the right forearm. Visualized c ephalic and basilic veins appear patent. IMPRESSION: 1. Thrombus identified in the right internal jugular and subclavian veins. Additional thrombus noted in a short segment of the right brachial vein. 2. Thrombus noted in a superficial vein in the right forearm. A verbal report was called to DARYL Sears on 05/08/2020 2:17 PM. FOR INTERNAL CODING PURPOSES ONLY RESULT CODE: [id number] SL: [id number] at 1419 Reported and signed by: Marisol Spencer M.D. CC: Hans Cotton MD Technologist: Jessica Pederson RDMS(Rich)() Trnscb Date/Time: 05/08/2020 (1418) [email or web address] Orig Print D/T: S: 05/08/2020 (1630) Probe: PAGE 1 Signed ReportBASIC METABOLIC [id number] 08:16:00 Test Item Value Reference Range Interpretation Comments SODIUM (test code = NA) 130 mEq/L 134-147 L POTASSIUM (test code = 4.2 mEq/L 3.4-5.0 N K) CHLORIDE (test code = 96 mEq/L 100-108 L CL) CARBON DIOXIDE (test 30 mEq/l 21-33 N code = CO2) ANION GAP (test code = 8 0-20 N GAP) GLUCOSE (test code = 85 mg/dL 70-110 N GLU) BLOOD UREA NITROGEN 37 mg/dL 7-18 H (test code = BUN) GLOMERULAR FILTRATION 9.0 80-90 L Units of measure = RATE (test code = GFR) ml/mi n/1.73 m2 CREATININE (test code = 6.2 mg/dL 0.6-1.3 H CREAT) CALCIUM (test code = 9.2 mg/dL 8.0-10.5 N CA) [id number] 08:16:00 Test Item Value Reference Range Interpretation Comments PHOSPHOROUS (test code = PHOS) 4.2 MG/DL 2.5-4.9 N CBC W/AUTO [id number] 06:59:00 Test Item Value Reference Range Interpretation Comments WHITE BLOOD CELL (test code = 9.2 x10 3/uL 4.5-11.0 N WBC) RED BLOOD CELL (test code = 2.97 x10 6/uL 4.00-5.60 L RBC) HEMOGLOBIN (test code = HGB) 8.1 g/dL 12.5-16.9 L HEMATOCRIT (test code = HCT) 27.6 % 37.5-50.7 L MEAN CELL VOLUME (test code = 92.9 fL 81.0-99.0 MCV) MEAN CELL HGB (test code = MCH) 27.3 pg 27.0-33.0 N MEAN CELL HGB CONCETRATION 29.3 g/dL 33.0-37.0 L (test code = MCHC) RED CELL DISTRIBUTION WIDTH CV 15.9 % 11.5-14.5 H (test code = RDW) RED CELL DISTRIBUTION WIDTH SD 52.4 fL 37.0-54.0 N (test code = RDW-SD) PLATELET COUNT (test code = 219 x10 3/uL 150-400 N PLT) MEAN PLATELET VOLUME (test code 9.2 fL 7.0-9.0 H = MPV) NEUTROPHIL % (test code = NT%) 64.4 % 56.0-77.0 N IMMATURE GRANULOCYTE % (test 0.7 % 0.0-2.0 N code = IG%) LYMPHOCYTE % (test code = LY%) 20.7 % 14.0-32.0 N MONOCYTE % (test code = MO%) 11.0 % 4.8-9.0 H EOSINOPHIL % (test code = EO%) 2.2 % 0.3-3.7 N BASOPHIL % (test code = BA%) 1.0 % 0.0-2.0 N NUCLEATED RBC % (test code = 0.0 % 0-0 N NRBC%) NEUTROPHIL # (test code = NT#) 5.94 x10 3/uL 2.0-7.6 N IMMATURE GRANULOCYTE # (test 0.06 x10 3/uL 0.00-0.03 H code = IG#) LYMPHOCYTE # (test code = LY#) 1.90 x10 3/uL 1.0-3.8 N MONOCYTE # (test code = MO#) 1.01 x10 3/uL 0.1-0.8 H EOSINOPHIL # (test code = EO#) 0.20 x10 3/uL 0.0-0.2 N BASOPHIL # (test code = BA#) 0.09 x10 3/uL 0.0-0.2 N NUCLEATED RBC # (test code = 0.00 x10 3/uL 0.0-0.1 N NRBC#) MANUAL DIFF REQUIRED (test code NO = MDIFF) CBC W/AUTO [id number] 07:53:00 Test Item Value Reference Range Interpretation Comments WHITE BLOOD CELL (test code = 8.8 x10 3/uL 4.5-11.0 N WBC) RED BLOOD CELL (test code = 2.94 x10 6/uL 4.00-5.60 L RBC) HEMOGLOBIN (test code = HGB) 7.9 g/dL 12.5-16.9 L HEMATOCRIT (test code = HCT) 26.4 % 37.5-50.7 L MEAN CELL VOLUME (test code = 89.8 fL 81.0-99.0 N MCV) MEAN CELL HGB (test code = MCH) 26.9 pg 27.0-33.0 L MEAN CELL HGB CONCETRATION 29.9 g/dL 33.0-37.0 L (test code = MCHC) RED CELL DISTRIBUTION WIDTH CV 15.1 % 11.5-14.5 H (test code = RDW) RED CELL DISTRIBUTION WIDTH SD 49.1 fL 37.0-54.0 N (test code = RDW-SD) PLATELET COUNT (test code = 257 x10 3/uL 150-400 N PLT) MEAN PLATELET VOLUME (test code 8.6 fL 7.0-9.0 N = MPV) NEUTROPHIL % (test code = NT%) 59.2 % 56.0-77.0 N IMMATURE GRANULOCYTE % (test 0.3 % 0.0-2.0 N code = IG%) LYMPHOCYTE % (test code = LY%) 24.1 % 14.0-32.0 N MONOCYTE % (test code = MO%) 13.1 % 4.8-9.0 H EOSINOPHIL % (test code = EO%) 2.2 % 0.3-3.7 N BASOPHIL % (test code = BA%) 1.1 % 0.0-2.0 N NUCLEATED RBC % (test code = 0.0 % 0-0 N NRBC%) NEUTROPHIL # (test code = NT#) 5.22 x10 3/uL 2.0-7.6 N IMMATURE GRANULOCYTE # (test 0.03 x10 3/uL 0.00-0.03 N code = IG#) LYMPHOCYTE # (test code = LY#) 2.12 x10 3/uL 1.0-3.8 N MONOCYTE # (test code = MO#) 1.15 x10 3/uL 0.1-0.8 H EOSINOPHIL # (test code = EO#) 0.19 x10 3/uL 0.0-0.2 N BASOPHIL # (test code = BA#) 0.10 x10 3/uL 0.0-0.2 N NUCLEATED RBC # (test code = 0.00 x10 3/uL 0.0-0.1 N NRBC#) MANUAL DIFF REQUIRED (test code NO = MDIFF) ACUTE HEPATITIS [id number] 16:16:00 Test Item Value Reference Range Interpretation Comments AB HEPATITIS A IGM (test NON REACTIVE INDEX NON REACT. code = HAVMAB) AG HEPATITIS B SURFACE NON REACTIVE INDEX NonReactive (test code = HBSAG) AB HEPATITIS B CORE IGM NON REACTIVE INDEX NON REACT. (test code = HBCMAB) AB HEPATITIS C (test code NON REACTIVE INDEX NON REACT. = HCVAB) BASIC METABOLIC [id number] 15:14:00 Test Item Value Reference Range Interpretation Comments SODIUM (test code = NA) 128 mEq/L 134-147 L POTASSIUM (test code = 4.1 mEq/L 3.4-5.0 N K) CHLORIDE (test code = 95 mEq/L 100-108 L CL) CARBON DIOXIDE (test 28 mEq/l 21-33 N code = CO2) ANION GAP (test code = 9 0-20 N GAP) GLUCOSE (test code = 93 mg/dL 70-110 N GLU) BLOOD UREA NITROGEN 31 mg/dL 7-18 H (test code = BUN) GLOMERULAR FILTRATION 10.6 80-90 L Units of measure = RATE (test code = GFR) ml/mi n/1.73 m2 CREATININE (test code = 5.4 mg/dL 0.6-1.3 H CREAT) CALCIUM (test code = 9.1 mg/dL 8.0-10.5 N CA) [id number] 15:14:00 Test Item Value Reference Range Interpretation Comments PHOSPHOROUS (test code = PHOS) 3.8 MG/DL 2.5-4.9 N [id number] 15:14:00 Test Item Value Reference Range Interpretation Comments MAGNESIUM (test code = MAG) 1.91 mg/dL 1.80-2.40 N CBC W/AUTO [id number] 15:02:00 Test Item Value Reference Range Interpretation Comments WHITE BLOOD CELL (test code = 9.0 x10 3/uL 4.5-11.0 N WBC) RED BLOOD CELL (test code = 2.85 x10 6/uL 4.00-5.60 L RBC) HEMOGLOBIN (test code = HGB) 7.8 g/dL 12.5-16.9 L HEMATOCRIT (test code = HCT) 25.4 % 37.5-50.7 L MEAN CELL VOLUME (test code = 89.1 fL 81.0-99.0 N MCV) MEAN CELL HGB (test code = MCH) 27.4 pg 27.0-33.0 N MEAN CELL HGB CONCETRATION 30.7 g/dL 33.0-37.0 L (test code = MCHC) RED CELL DISTRIBUTION WIDTH CV 14.9 % 11.5-14.5 H (test code = RDW) RED CELL DISTRIBUTION WIDTH SD 48.4 fL 37.0-54.0 N (test code = RDW-SD) PLATELET COUNT (test code = 264 x10 3/uL 150-400 N PLT) MEAN PLATELET VOLUME (test code 8.3 fL 7.0-9.0 N = MPV) NEUTROPHIL % (test code = NT%) 59.1 % 56.0-77.0 N IMMATURE GRANULOCYTE % (test 0.4 % 0.0-2.0 N code = IG%) LYMPHOCYTE % (test code = LY%) 25.5 % 14.0-32.0 N MONOCYTE % (test code = MO%) 11.9 % 4.8-9.0 H EOSINOPHIL % (test code = EO%) 2.1 % 0.3-3.7 N BASOPHIL % (test code = BA%) 1.0 % 0.0-2.0 N NUCLEATED RBC % (test code = 0.0 % 0-0 N NRBC%) NEUTROPHIL # (test code = NT#) 5.33 x10 3/uL 2.0-7.6 N IMMATURE GRANULOCYTE # (test 0.04 x10 3/uL 0.00-0.03 H code = IG#) LYMPHOCYTE # (test code = LY#) 2.30 x10 3/uL 1.0-3.8 N MONOCYTE # (test code = MO#) 1.07 x10 3/uL 0.1-0.8 H EOSINOPHIL # (test code = EO#) 0.19 x10 3/uL 0.0-0.2 N BASOPHIL # (test code = BA#) 0.09 x10 3/uL 0.0-0.2 N NUCLEATED RBC # (test code = 0.00 x10 3/uL 0.0-0.1 N NRBC#) MANUAL DIFF REQUIRED (test code NO = MDIFF) CBC W/AUTO [id number] 15:01:00 Test Item Value Reference Range Interpretation Comments WHITE BLOOD CELL (test code = x10 3/uL 4.5-11.0 WBC) RED BLOOD CELL (test code = RBC) x10 6/uL 4.00-5.60 HEMOGLOBIN (test code = HGB) g/dL 12.5-16.9 HEMATOCRIT (test code = HCT) % 37.5-50.7 MEAN CELL VOLUME (test code = fL 81.0-99.0 MCV) MEAN CELL HGB (test code = MCH) pg 27.0-33.0 MEAN CELL HGB CONCETRATION (test g/dL 33.0-37.0 code = MCHC) RED CELL DISTRIBUTION WIDTH CV % 11.5-14.5 (test code = RDW) PLATELET COUNT (test code = PLT) 264 x10 3/uL 150-400 N NEUTROPHIL % (test code = NT%) % 56.0-77.0 LYMPHOCYTE % (test code = LY%) % 14.0-32.0 NEUTROPHIL # (test code = NT#) x10 3/uL 2.0-7.6 LYMPHOCYTE # (test code = LY#) x10 3/uL 1.0-3.8 MANUAL DIFF REQUIRED (test code = MDIFF) BASIC METABOLIC [id number] 08:24:00 Test Item Value Reference Range Interpretation Comments SODIUM (test code = NA) 132 mEq/L 134-147 L POTASSIUM (test code = 3.7 mEq/L 3.4-5.0 N K) CHLORIDE (test code = 98 mEq/L 100-108 L CL) CARBON DIOXIDE (test 26 mEq/l 21-33 N code = CO2) ANION GAP (test code = 12 0-20 N GAP) GLUCOSE (test code = 86 mg/dL 70-110 N GLU) BLOOD UREA NITROGEN 25 mg/dL 7-18 H (test code = BUN) GLOMERULAR FILTRATION 11.3 80-90 L Units of measure = RATE (test code = GFR) ml/mi n/1.73 m2 CREATININE (test code = 5.1 mg/dL 0.6-1.3 H CREAT) CALCIUM (test code = 9.2 mg/dL 8.0-10.5 N CA) [id number] 08:24:00 Test Item Value Reference Range Interpretation Comments PHOSPHOROUS (test code = PHOS) 4.0 MG/DL 2.5-4.9 N [id number] 08:24:00 Test Item Value Reference Range Interpretation Comments MAGNESIUM (test code = MAG) 2.00 mg/dL 1.80-2.40 N CBC W/AUTO [id number] 08:09:00 Test Item Value Reference Range Interpretation Comments WHITE BLOOD CELL (test code = 8.3 x10 3/uL 4.5-11.0 N WBC) RED BLOOD CELL (test code = 2.87 x10 6/uL 4.00-5.60 L RBC) HEMOGLOBIN (test code = HGB) 7.8 g/dL 12.5-16.9 L HEMATOCRIT (test code = HCT) 26.2 % 37.5-50.7 L MEAN CELL VOLUME (test code = 91.3 fL 81.0-99.0 N MCV) MEAN CELL HGB (test code = MCH) 27.2 pg 27.0-33.0 N MEAN CELL HGB CONCETRATION 29.8 g/dL 33.0-37.0 L (test code = MCHC) RED CELL DISTRIBUTION WIDTH CV 14.8 % 11.5-14.5 H (test code = RDW) RED CELL DISTRIBUTION WIDTH SD 49.2 fL 37.0-54.0 N (test code = RDW-SD) PLATELET COUNT (test code = 313 x10 3/uL 150-400 N PLT) MEAN PLATELET VOLUME (test code 9.0 fL 7.0-9.0 N = MPV) NEUTROPHIL % (test code = NT%) 56.2 % 56.0-77.0 N IMMATURE GRANULOCYTE % (test 0.5 % 0.0-2.0 N code = IG%) LYMPHOCYTE % (test code = LY%) 23.2 % 14.0-32.0 N MONOCYTE % (test code = MO%) 15.4 % 4.8-9.0 H EOSINOPHIL % (test code = EO%) 3.4 % 0.3-3.7 N BASOPHIL % (test code = BA%) 1.3 % 0.0-2.0 N NUCLEATED RBC % (test code = 0.0 % 0-0 N NRBC%) NEUTROPHIL # (test code = NT#) 4.69 x10 3/uL 2.0-7.6 N IMMATURE GRANULOCYTE # (test 0.04 x10 3/uL 0.00-0.03 H code = IG#) LYMPHOCYTE # (test code = LY#) 1.93 x10 3/uL 1.0-3.8 N MONOCYTE # (test code = MO#) 1.28 x10 3/uL 0.1-0.8 H EOSINOPHIL # (test code = EO#) 0.28 x10 3/uL 0.0-0.2 H BASOPHIL # (test code = BA#) 0.11 x10 3/uL 0.0-0.2 N NUCLEATED RBC # (test code = 0.00 x10 3/uL 0.0-0.1 N NRBC#) MANUAL DIFF REQUIRED (test code NO = MDIFF) CBC W/AUTO [id number] 07:38:00 Test Item Value Reference Range Interpretation Comments WHITE BLOOD CELL (test code = x10 3/uL 4.5-11.0 WBC) RED BLOOD CELL (test code = RBC) x10 6/uL 4.00-5.60 HEMOGLOBIN (test code = HGB) g/dL 12.5-16.9 HEMATOCRIT (test code = HCT) % 37.5-50.7 MEAN CELL VOLUME (test code = fL 81.0-99.0 MCV) MEAN CELL HGB (test code = MCH) pg 27.0-33.0 MEAN CELL HGB CONCETRATION (test g/dL 33.0-37.0 code = MCHC) RED CELL DISTRIBUTION WIDTH CV % 11.5-14.5 (test code = RDW) PLATELET COUNT (test code = PLT) 313 x10 3/uL 150-400 N NEUTROPHIL % (test code = NT%) % 56.0-77.0 LYMPHOCYTE % (test code = LY%) % 14.0-32.0 NEUTROPHIL # (test code = NT#) x10 3/uL 2.0-7.6 LYMPHOCYTE # (test code = LY#) x10 3/uL 1.0-3.8 MANUAL DIFF REQUIRED (test code = MDIFF) Novel Coronavirus [id number] 15:31:00 Test Item Value Reference Range Interpretation Comments Novel Coronavirus Negative Negative Positive r esults are 2019 Inhouse (test indicativ e of the presence code = [id number]) ofSARS-CoV -2 RNA, clinical correlation wit h patient historyand othe r diagnostic info rmation is necessary to determinepatien t infection status. Positiv e results do not rule out bacterial infection or co -infection with other viru ses. Negative result s do not preclude SARS-C oV-2 infection andsh ould not be used as the rosy e basis for patient managementdecis ions. Negative result s must be combined with otherclinical observations, p atient history, and epidemiological information . Detection of SARS-CoV-2 RNA may be affe cted bysample collec tion methods, storag e conditions, and /or stageof infection. Alma l RNA mutations, vacc inations, antiviraltherap eutics, antibiotics, chemotherapeuti c orimmunosuppres pa drugs have not been e valuated for effectson d etection. Results are for the identification of SARS-CoV-2 RNA usingthe Robert M2000 Sy stem under the FDA Emergen cy UseAuthorizatio n. The testing is perf ormed by personneltraine d in the procedures for the Pitadela M2000 molecular diagnostic SARS-CoV-2 assa y in vitro. CBC W/AUTO [id number] 07:47:00 Test Item Value Reference Range Interpretation Comments WHITE BLOOD CELL (test code = 8.4 x10 3/uL 4.5-11.0 N WBC) RED BLOOD CELL (test code = 2.91 x10 6/uL 4.00-5.60 L RBC) HEMOGLOBIN (test code = HGB) 8.1 g/dL 12.5-16.9 L HEMATOCRIT (test code = HCT) 26.3 % 37.5-50.7 L MEAN CELL VOLUME (test code = 90.4 fL 81.0-99.0 N MCV) MEAN CELL HGB (test code = MCH) 27.8 pg 27.0-33.0 N MEAN CELL HGB CONCETRATION 30.8 g/dL 33.0-37.0 L (test code = MCHC) RED CELL DISTRIBUTION WIDTH CV 14.8 % 11.5-14.5 H (test code = RDW) RED CELL DISTRIBUTION WIDTH SD 49.0 fL 37.0-54.0 N (test code = RDW-SD) PLATELET COUNT (test code = 297 x10 3/uL 150-400 N PLT) MEAN PLATELET VOLUME (test code 9.3 fL 7.0-9.0 H = MPV) NEUTROPHIL % (test code = NT%) 56.1 % 56.0-77.0 N IMMATURE GRANULOCYTE % (test 0.5 % 0.0-2.0 N code = IG%) LYMPHOCYTE % (test code = LY%) 24.4 % 14.0-32.0 N MONOCYTE % (test code = MO%) 15.3 % 4.8-9.0 H EOSINOPHIL % (test code = EO%) 2.5 % 0.3-3.7 N BASOPHIL % (test code = BA%) 1.2 % 0.0-2.0 N NUCLEATED RBC % (test code = 0.0 % 0-0 N NRBC%) NEUTROPHIL # (test code = NT#) 4.74 x10 3/uL 2.0-7.6 N IMMATURE GRANULOCYTE # (test 0.04 x10 3/uL 0.00-0.03 H code = IG#) LYMPHOCYTE # (test code = LY#) 2.06 x10 3/uL 1.0-3.8 N MONOCYTE # (test code = MO#) 1.29 x10 3/uL 0.1-0.8 H EOSINOPHIL # (test code = EO#) 0.21 x10 3/uL 0.0-0.2 H BASOPHIL # (test code = BA#) 0.10 x10 3/uL 0.0-0.2 N NUCLEATED RBC # (test code = 0.00 x10 3/uL 0.0-0.1 N NRBC#) MANUAL DIFF REQUIRED (test code NO = MDIFF) - XR KNEE 1 OR 2 V [id number] 15:21:00 [facility] : 1950 Sex: M FAX: Hasn Escobar [phone] [place]: St: ADM Name: JAMAAL ROGERS [facility] : 1950 Age/S: 69/M [address] [place] [address] Blvd Unit #: [id number] Loc: [address] [place] [id number] Phys: Hans Cotton MD Acct: [id number] Dis Date: Status: ADM IN PHONE #: [phone] Exam Date: 05/01/2020 1312 FAX #: [phone] Reason: ASSESS FOR DJD EXAMS: CPT CODE: [id number] XR KNEE 1 OR 2 V RT [id number] Study: - XR KNEE 1 OR 2 V RT 05/01/2020 8:00 AM Patient Name: JAMAAL ROGERS MR: [id number] : 1950; Age: 69 years y/o Male Ordering Physician: Hans Cotton MD Clinical Indication: ASSESS FOR DJD Comparison: None RIGHT KNEE, 2 views: No acute fracture, dislocation, or suspicious focal osseous lesion. 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 Severe narrowing of the lateral tibiofemoral compartment. The soft tissues are normal. IMPRESSION: 1. No acute fracture or malalignment. 2. 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 SL: [id number] at 1521 Reported and signed by: Tello Rondon M.D. CC: Hans Cotton MD Technologist: RT Zulema(R) Trnscrd Date/Time/By: 05/01/2020 (1520) : By: [email or web address] Orig Print D/T: S: 05/01/2020 (1524) PAGE 1 Signed ReportCBC W/AUTO [id number] 08:14:00 Test Item Value Reference Range Interpretation Comments WHITE BLOOD CELL (test code = 9.0 x10 3/uL 4.5-11.0 N WBC) RED BLOOD CELL (test code = 2.92 x10 6/uL 4.00-5.60 L RBC) HEMOGLOBIN (test code = HGB) 8.0 g/dL 12.5-16.9 L HEMATOCRIT (test code = HCT) 26.3 % 37.5-50.7 L MEAN CELL VOLUME (test code = 90.1 fL 81.0-99.0 N MCV) MEAN CELL HGB (test code = MCH) 27.4 pg 27.0-33.0 N MEAN CELL HGB CONCETRATION 30.4 g/dL 33.0-37.0 L (test code = MCHC) RED CELL DISTRIBUTION WIDTH CV 14.7 % 11.5-14.5 H (test code = RDW) RED CELL DISTRIBUTION WIDTH SD 48.7 fL 37.0-54.0 N (test code = RDW-SD) PLATELET COUNT (test code = 296 x10 3/uL 150-400 N PLT) MEAN PLATELET VOLUME (test code 9.4 fL 7.0-9.0 H = MPV) NEUTROPHIL % (test code = NT%) 60.4 % 56.0-77.0 N IMMATURE GRANULOCYTE % (test 0.7 % 0.0-2.0 N code = IG%) LYMPHOCYTE % (test code = LY%) 21.4 % 14.0-32.0 N MONOCYTE % (test code = MO%) 14.1 % 4.8-9.0 H EOSINOPHIL % (test code = EO%) 2.1 % 0.3-3.7 N BASOPHIL % (test code = BA%) 1.3 % 0.0-2.0 N NUCLEATED RBC % (test code = 0.0 % 0-0 N NRBC%) NEUTROPHIL # (test code = NT#) 5.43 x10 3/uL 2.0-7.6 N IMMATURE GRANULOCYTE # (test 0.06 x10 3/uL 0.00-0.03 H code = IG#) LYMPHOCYTE # (test code = LY#) 1.92 x10 3/uL 1.0-3.8 N MONOCYTE # (test code = MO#) 1.27 x10 3/uL 0.1-0.8 H EOSINOPHIL # (test code = EO#) 0.19 x10 3/uL 0.0-0.2 N BASOPHIL # (test code = BA#) 0.12 x10 3/uL 0.0-0.2 N NUCLEATED RBC # (test code = 0.00 x10 3/uL 0.0-0.1 N NRBC#) MANUAL DIFF REQUIRED (test code NO = MDIFF) COMPREHENSIVE METABOLIC [id number] 07:55:00 Test Item Value Reference Range Interpretation Comments SODIUM (test code = NA) 130 mEq/L 134-147 L POTASSIUM (test code = 4.1 mEq/L 3.4-5.0 N K) CHLORIDE (test code = 94 mEq/L 100-108 L CL) CARBON DIOXIDE (test 27 mEq/l 21-33 N code = CO2) ANION GAP (test code = 13 0-20 N GAP) GLUCOSE (test code = 90 mg/dL 70-110 N GLU) BLOOD UREA NITROGEN 28 mg/dL 7-18 H (test code = BUN) GLOMERULAR FILTRATION 11.1 80-90 L Units of measure = RATE (test code = GFR) ml/mi n/1.73 m2 CREATININE (test code = 5.2 mg/dL 0.6-1.3 H CREAT) TOTAL PROTEIN (test 6.6 g/dL 6.4-8.2 N code = PROT) ALBUMIN (test code = 3.00 g/dL 3.4-5.0 L ALB) CALCIUM (test code = 9.1 mg/dL 8.0-10.5 N CA) BILIRUBIN TOTAL (test 0.40 mg/dL 0.0-1.0 N code = BILT) SGOT/AST (test code = 22 IUnit/L 15-37 N AST) SGPT/ALT (test code = 10 IUnit/L 30-65 L ALT) ALKALINE PHOSPHATASE 201 IUnit/L 20-125 H TOTAL (test code = ALKP) BASIC METABOLIC [id number] 08:13:00 Test Item Value Reference Range Interpretation Comments SODIUM (test code = NA) 135 mEq/L 134-147 N POTASSIUM (test code = 3.9 mEq/L 3.4-5.0 N K) CHLORIDE (test code = 97 mEq/L 100-108 L CL) CARBON DIOXIDE (test 30 mEq/l 21-33 N code = CO2) ANION GAP (test code = 12 0-20 N GAP) GLUCOSE (test code = 94 mg/dL 70-110 N GLU) BLOOD UREA NITROGEN 27 mg/dL 7-18 H (test code = BUN) GLOMERULAR FILTRATION 12.8 80-90 L Units of measure = RATE (test code = GFR) ml/mi n/1.73 m2 CREATININE (test code = 4.6 mg/dL 0.6-1.3 H CREAT) CALCIUM (test code = 8.9 mg/dL 8.0-10.5 N CA) CBC W/AUTO [id number] 07:26:00 Test Item Value Reference Range Interpretation Comments WHITE BLOOD CELL (test code = 9.3 x10 3/uL 4.5-11.0 N WBC) RED BLOOD CELL (test code = 2.90 x10 6/uL 4.00-5.60 L RBC) HEMOGLOBIN (test code = HGB) 8.1 g/dL 12.5-16.9 L HEMATOCRIT (test code = HCT) 26.4 % 37.5-50.7 L MEAN CELL VOLUME (test code = 91.0 fL 81.0-99.0 N MCV) MEAN CELL HGB (test code = MCH) 27.9 pg 27.0-33.0 N MEAN CELL HGB CONCETRATION 30.7 g/dL 33.0-37.0 L (test code = MCHC) RED CELL DISTRIBUTION WIDTH CV 14.7 % 11.5-14.5 H (test code = RDW) RED CELL DISTRIBUTION WIDTH SD 49.5 fL 37.0-54.0 N (test code = RDW-SD) PLATELET COUNT (test code = 239 x10 3/uL 150-400 N PLT) MEAN PLATELET VOLUME (test code 9.5 fL 7.0-9.0 H = MPV) NEUTROPHIL % (test code = NT%) 57.7 % 56.0-77.0 N IMMATURE GRANULOCYTE % (test 0.2 % 0.0-2.0 N code = IG%) LYMPHOCYTE % (test code = LY%) 25.2 % 14.0-32.0 N MONOCYTE % (test code = MO%) 14.5 % 4.8-9.0 H EOSINOPHIL % (test code = EO%) 1.3 % 0.3-3.7 N BASOPHIL % (test code = BA%) 1.1 % 0.0-2.0 N NUCLEATED RBC % (test code = 0.0 % 0-0 N NRBC%) NEUTROPHIL # (test code = NT#) 5.40 x10 3/uL 2.0-7.6 N IMMATURE GRANULOCYTE # (test 0.02 x10 3/uL 0.00-0.03 N code = IG#) LYMPHOCYTE # (test code = LY#) 2.35 x10 3/uL 1.0-3.8 N MONOCYTE # (test code = MO#) 1.35 x10 3/uL 0.1-0.8 H EOSINOPHIL # (test code = EO#) 0.12 x10 3/uL 0.0-0.2 N BASOPHIL # (test code = BA#) 0.10 x10 3/uL 0.0-0.2 N NUCLEATED RBC # (test code = 0.00 x10 3/uL 0.0-0.1 N NRBC#) MANUAL DIFF REQUIRED (test code NO = MDIFF) CBC W/AUTO [id number] 07:23:00 Test Item Value Reference Range Interpretation Comments WHITE BLOOD CELL (test code = x10 3/uL 4.5-11.0 WBC) RED BLOOD CELL (test code = RBC) x10 6/uL 4.00-5.60 HEMOGLOBIN (test code = HGB) g/dL 12.5-16.9 HEMATOCRIT (test code = HCT) % 37.5-50.7 MEAN CELL VOLUME (test code = fL 81.0-99.0 MCV) MEAN CELL HGB (test code = MCH) pg 27.0-33.0 MEAN CELL HGB CONCETRATION (test g/dL 33.0-37.0 code = MCHC) RED CELL DISTRIBUTION WIDTH CV % 11.5-14.5 (test code = RDW) PLATELET COUNT (test code = PLT) 239 x10 3/uL 150-400 N NEUTROPHIL % (test code = NT%) % 56.0-77.0 LYMPHOCYTE % (test code = LY%) % 14.0-32.0 NEUTROPHIL # (test code = NT#) x10 3/uL 2.0-7.6 LYMPHOCYTE # (test code = LY#) x10 3/uL 1.0-3.8 MANUAL DIFF REQUIRED (test code = MDIFF) COVID 19 Asymptomatic IH [id number] 09:42:00 Test Item Value Reference Range Interpretation Comments COVID 19 Asymptomatic Negative Negative A nega tive result is IH AG (test code = presumpti ve and should COVNONPUIAG) be confirmedwit h an FDA authorized mole cular assay, if neces bret forpatient michael gement.A positive result does not rule out co-inf ections withother patho gens.This test detects moriah th viable (live) and non-viable,SARS -CoV, and SARS-CoV-2. Leanna t performance dep ends on theamount of vi joby (antigen) in th e sample.This leanna t has not been FDA cleare d or approved; the t est hasbeen authori zed by FDA under an Em ergency Use Authorizati on(EUA) for use by labo ratories certified under the CLIA thatmeet the requirements to perform moderate, high or waivedcomplexit y tests. COMMENTS: NRENAL FUNCTION [id number] 13:51:00 Test Item Value Reference Range Interpretation Comments SODIUM (test code = NA) 131 mEq/L 134-147 L POTASSIUM (test code = 4.7 mEq/L 3.4-5.0 N K) CHLORIDE (test code = 94 mEq/L 100-108 L CL) CARBON DIOXIDE (test 26 mEq/l 21-33 N code = CO2) ANION GAP (test code = 16 0-20 N GAP) GLUCOSE (test code = 93 mg/dL 70-110 N GLU) BLOOD UREA NITROGEN 53 mg/dL 7-18 H (test code = BUN) GLOMERULAR FILTRATION 8.6 80-90 L Units of measure = RATE (test code = GFR) ml/mi n/1.73 m2 CREATININE (test code = 6.5 mg/dL 0.6-1.3 H CREAT) ALBUMIN (test code = 3.20 g/dL 3.4-5.0 L ALB) CALCIUM (test code = CA) 8.6 mg/dL 8.0-10.5 N PHOSPHOROUS (test code = 4.6 MG/DL 2.5-4.9 N PHOS) CBC W/AUTO [id number] 13:32:00 Test Item Value Reference Range Interpretation Comments WHITE BLOOD CELL (test code = 11.3 x10 3/uL 4.5-11.0 H WBC) RED BLOOD CELL (test code = 2.82 x10 6/uL 4.00-5.60 L RBC) HEMOGLOBIN (test code = HGB) 8.0 g/dL 12.5-16.9 L HEMATOCRIT (test code = HCT) 25.2 % 37.5-50.7 L MEAN CELL VOLUME (test code = 89.4 fL 81.0-99.0 N MCV) MEAN CELL HGB (test code = MCH) 28.4 pg 27.0-33.0 N MEAN CELL HGB CONCETRATION 31.7 g/dL 33.0-37.0 L (test code = MCHC) RED CELL DISTRIBUTION WIDTH CV 14.6 % 11.5-14.5 H (test code = RDW) RED CELL DISTRIBUTION WIDTH SD 46.9 fL 37.0-54.0 N (test code = RDW-SD) PLATELET COUNT (test code = 216 x10 3/uL 150-400 N PLT) MEAN PLATELET VOLUME (test code 9.2 fL 7.0-9.0 H = MPV) NEUTROPHIL % (test code = NT%) 68.6 % 56.0-77.0 N IMMATURE GRANULOCYTE % (test 0.6 % 0.0-2.0 N code = IG%) LYMPHOCYTE % (test code = LY%) 17.9 % 14.0-32.0 N MONOCYTE % (test code = MO%) 11.3 % 4.8-9.0 H EOSINOPHIL % (test code = EO%) 0.6 % 0.3-3.7 N BASOPHIL % (test code = BA%) 1.0 % 0.0-2.0 N NUCLEATED RBC % (test code = 0.0 % 0-0 N NRBC%) NEUTROPHIL # (test code = NT#) 7.75 x10 3/uL 2.0-7.6 H IMMATURE GRANULOCYTE # (test 0.07 x10 3/uL 0.00-0.03 H code = IG#) LYMPHOCYTE # (test code = LY#) 2.02 x10 3/uL 1.0-3.8 N MONOCYTE # (test code = MO#) 1.28 x10 3/uL 0.1-0.8 H EOSINOPHIL # (test code = EO#) 0.07 x10 3/uL 0.0-0.2 N BASOPHIL # (test code = BA#) 0.11 x10 3/uL 0.0-0.2 N NUCLEATED RBC # (test code = 0.00 x10 3/uL 0.0-0.1 N NRBC#) MANUAL DIFF REQUIRED (test code NO = MDIFF) BASIC METABOLIC [id number] 11:25:00 Test Item Value Reference Range Interpretation Comments SODIUM (test code = NA) 135 mEq/L 134-147 N POTASSIUM (test code = 4.6 mEq/L 3.4-5.0 N K) CHLORIDE (test code = 101 mEq/L 100-108 N CL) CARBON DIOXIDE (test 22 mEq/l 21-33 N code = CO2) ANION GAP (test code = 17 0-20 N GAP) GLUCOSE (test code = 86 mg/dL 70-110 N GLU) BLOOD UREA NITROGEN 40 mg/dL 7-18 H (test code = BUN) GLOMERULAR FILTRATION 9.4 80-90 L Units of measure = RATE (test code = GFR) ml/mi n/1.73 m2 CREATININE (test code = 6.0 mg/dL 0.6-1.3 H CREAT) CALCIUM (test code = 7.8 mg/dL 8.0-10.5 L CA) CBC W/AUTO [id number] 11:04:00 Test Item Value Reference Range Interpretation Comments WHITE BLOOD CELL (test code = 12.4 x10 3/uL 4.5-11.0 H WBC) RED BLOOD CELL (test code = 3.12 x10 6/uL 4.00-5.60 L RBC) HEMOGLOBIN (test code = HGB) 8.9 g/dL 12.5-16.9 L HEMATOCRIT (test code = HCT) 28.6 % 37.5-50.7 L MEAN CELL VOLUME (test code = 91.7 fL 81.0-99.0 MCV) MEAN CELL HGB (test code = MCH) 28.5 pg 27.0-33.0 N MEAN CELL HGB CONCETRATION 31.1 g/dL 33.0-37.0 L (test code = MCHC) RED CELL DISTRIBUTION WIDTH CV 14.9 % 11.5-14.5 H (test code = RDW) RED CELL DISTRIBUTION WIDTH SD 50.0 fL 37.0-54.0 N (test code = RDW-SD) PLATELET COUNT (test code = 168 x10 3/uL 150-400 N PLT) MEAN PLATELET VOLUME (test code 9.8 fL 7.0-9.0 H = MPV) NEUTROPHIL % (test code = NT%) 74.0 % 56.0-77.0 N IMMATURE GRANULOCYTE % (test 0.6 % 0.0-2.0 N code = IG%) LYMPHOCYTE % (test code = LY%) 16.0 % 14.0-32.0 N MONOCYTE % (test code = MO%) 8.1 % 4.8-9.0 N EOSINOPHIL % (test code = EO%) 0.7 % 0.3-3.7 N BASOPHIL % (test code = BA%) 0.6 % 0.0-2.0 N NUCLEATED RBC % (test code = 0.0 % 0-0 N NRBC%) NEUTROPHIL # (test code = NT#) 9.18 x10 3/uL 2.0-7.6 H IMMATURE GRANULOCYTE # (test 0.07 x10 3/uL 0.00-0.03 H code = IG#) LYMPHOCYTE # (test code = LY#) 1.98 x10 3/uL 1.0-3.8 N MONOCYTE # (test code = MO#) 1.00 x10 3/uL 0.1-0.8 H EOSINOPHIL # (test code = EO#) 0.09 x10 3/uL 0.0-0.2 N BASOPHIL # (test code = BA#) 0.08 x10 3/uL 0.0-0.2 N NUCLEATED RBC # (test code = 0.00 x10 3/uL 0.0-0.1 N NRBC#) MANUAL DIFF REQUIRED (test code NO = MDIFF) VITAMIN [id number] 08:31:00 Test Item Value Reference Range Interpretation Comments VITAMIN B12 (test code = VITB12) 999 pg/mL 193-986 H Indication for Test: Osteopenia/Bone Dis RiskFOLIC [id number] 08:31:00 Test Item Value Reference Range Interpretation Comments FOLIC ACID (test code = FOL) 5.2 ng/mL 3.1-17.5 N Indication for Test: Osteopenia/Bone Dis RiskTHYROID STIMULATING HORMONE 2020-04-21 08:31:00 Test Item Value Reference Range Interpretation Comments THYROID STIMULATING 0.75 0.42-5.47 N Results in HORMONE (test code = TSH) mi lli-International Units/mL Indication for Test: Osteopenia/Bone Dis RiskVITAMIN D [id number] 08:31:00 Test Item Value Reference Range Interpretation Comments VITAMIN D 25-HYDROXY (test code = 15.7 ng/mL 30-100 L VITD25) Indication for Test: Osteopenia/Bone Dis Risk- XR CHEST 1 [id number] 14:39:00 [facility] 1950 Sex: M FAX: Nanda Culver MD [phone] [place]: St: ADM FAX: Smith Horton MD [phone] Name: JAMAAL ROGERS [facility] : 1950 Age/S: 69/M [address] [place] [address] Blvd Unit #: [id number] Loc: G.[address] [place] [id number] Phys: Smith Estes MD Acct: [id number] Dis Date: Status: ADM IN PHONE #: [phone] Exam Date: 04/20/2020 1433 FAX #: [phone] Reason: liney EXAMS: CPT CODE: [id number] XR CHEST 1 V 14967 Single view chest: HISTORY: Line placement. FINDINGS: Right IJ temporary di alysis catheter has been exchanged for a tunneled dialysis catheter compared with 04/07/2020.The new catheter is positioned with the tips near the cavoatrial junction in satisfactory position. The lungs are clear. Stable tortuous thoracic aorta. No pneumothorax. IMPRESSION: Satisfactory placement of right IJ tunneled dialysis catheter SL: [id number] at 1439 Reported and signed by: Nicola Moran M.D. CC: Nanda Culver MD; Smith Estes MD Technologist: RIANNA Poole) Trnscrd Date/Time/By: 04/20/2020 (5739) : By: DayETG Orig Print D/T: S: 04/20/2020 (8701) PAGE 1 Signed Report- XR FLUOROSCOPY 0-60 [id number] 13:29:00 [facility] : 1950 Sex: M FAX: Nanda Culver MD [phone] [place]: St: ADM FAX: Smith Horton MD [phone] Name: SUEJAMAAL [facility] : 1950 Age/S: 69/M [address] [place] [address] Unit #: [id number] Loc: G.[address] [place] [address] Phys: Smith Estes MD Acct: [id number] Dis Date: Status: ADM IN PHONE #: [phone] Exam Date: 04/20/2020 1141 FAX #: [phone] Reason: ESRD EXAMS: CPT CODE: [id number] XR FLUOROSCOPY 0-60 MIN 15697 Intraprocedural fluoroscopy was provided by the Department of Radiology. Any images obtained were interpreted by the surgeon intraoperatively. Reference air kerma: 1.1 mGy, fluoroscopy time 6 seconds SL: [id number] at 1329 Reported and signed by: Nicola Moran M.D. CC: Nanda Culver MD; Smith Estes MD Technologist: Merrill Naranjo RT(R) Trnscrd Date/Time/By: 04/20/2020 (3904) : By: DayETG Orig Print D/T: S: 04/20/2020 (9368) PAGE 1 Signed ReportBASIC METABOLIC [id number] 08:39:00 Test Item Value Reference Range Interpretation Comments SODIUM (test code = NA) 134 mEq/L 134-147 N POTASSIUM (test code = 4.3 mEq/L 3.4-5.0 N K) CHLORIDE (test code = 99 mEq/L 100-108 L CL) CARBON DIOXIDE (test 27 mEq/l 21-33 N code = CO2) ANION GAP (test code = 12 0-20 N GAP) GLUCOSE (test code = 91 mg/dL 70-110 N GLU) BLOOD UREA NITROGEN 20 mg/dL 7-18 H (test code = BUN) GLOMERULAR FILTRATION 12.5 80-90 L Units of measure = RATE (test code = GFR) ml/mi n/1.73 m2 CREATININE (test code = 4.7 mg/dL 0.6-1.3 H CREAT) CALCIUM (test code = 8.4 mg/dL 8.0-10.5 N CA) CBC W/AUTO [id number] 07:59:00 Test Item Value Reference Range Interpretation Comments WHITE BLOOD CELL (test code = 12.7 x10 3/uL 4.5-11.0 H WBC) RED BLOOD CELL (test code = 2.95 x10 6/uL 4.00-5.60 L RBC) HEMOGLOBIN (test code = HGB) 8.4 g/dL 12.5-16.9 L HEMATOCRIT (test code = HCT) 28.3 % 37.5-50.7 L MEAN CELL VOLUME (test code = 95.9 fL 81.0-99.0 N MCV) MEAN CELL HGB (test code = MCH) 28.5 pg 27.0-33.0 N MEAN CELL HGB CONCETRATION 29.7 g/dL 33.0-37.0 L (test code = MCHC) RED CELL DISTRIBUTION WIDTH CV 15.1 % 11.5-14.5 H (test code = RDW) RED CELL DISTRIBUTION WIDTH SD 51.8 fL 37.0-54.0 N (test code = RDW-SD) PLATELET COUNT (test code = 176 x10 3/uL 150-400 N PLT) MEAN PLATELET VOLUME (test code 9.8 fL 7.0-9.0 H = MPV) NEUTROPHIL % (test code = NT%) 63.0 % 56.0-77.0 N IMMATURE GRANULOCYTE % (test 0.6 % 0.0-2.0 N code = IG%) LYMPHOCYTE % (test code = LY%) 22.3 % 14.0-32.0 N MONOCYTE % (test code = MO%) 12.0 % 4.8-9.0 H EOSINOPHIL % (test code = EO%) 1.3 % 0.3-3.7 N BASOPHIL % (test code = BA%) 0.8 % 0.0-2.0 N NUCLEATED RBC % (test code = 0.0 % 0-0 N NRBC%) NEUTROPHIL # (test code = NT#) 8.00 x10 3/uL 2.0-7.6 H IMMATURE GRANULOCYTE # (test 0.08 x10 3/uL 0.00-0.03 H code = IG#) LYMPHOCYTE # (test code = LY#) 2.83 x10 3/uL 1.0-3.8 N MONOCYTE # (test code = MO#) 1.52 x10 3/uL 0.1-0.8 H EOSINOPHIL # (test code = EO#) 0.16 x10 3/uL 0.0-0.2 N BASOPHIL # (test code = BA#) 0.10 x10 3/uL 0.0-0.2 N NUCLEATED RBC # (test code = 0.00 x10 3/uL 0.0-0.1 N NRBC#) MANUAL DIFF REQUIRED (test code NO = MDIFF) PROTHROMBIN [id number] 05:38:00 Test Item Value Reference Range Interpretation Comments PROTHROMBIN TIME 13.1 SECONDS 9.3-12.9 H PATIENT (test code = PTP) INTERNATIONAL NORMAL 1.2 0.8-1.2 N TARGET RATIO (test code = INR BY IN DICATION INR) Indication INR1. Prophyl axis of venous thrombos is 2.0 - 3. 0 (orthopedic jaylon anand), Prophylaxis of venous thrombos is (other than hig h-risk surgery), Paz tment of Deep Vein Thrombosis/Pulm onary Embolism, Preve ntion of systemic emb olism - Tissue heart va lves, Acute Myocardia l Infarction (to prevent systemic embo lism), Valvular heart disease, Atri al Fibrillation, Bileaflet mecha nical valve in aortic position.2. Mec hanical prosthetic valv es (high risk), 2.5 - 3.5 Presence of Lupus Anticoagu lant or Antiphospholi pid Antibodies, Pre vention of systemic e mbolism - Acute Myocard ial Infarction (t o prevent recurre nt infarct). COVID 19 Asymptomatic IH [id number] 18:33:00 Test Item Value Reference Range Interpretation Comments COVID 19 Asymptomatic Negative Negative A nega tive result is IH AG (test code = presumpti ve and should COVNONPUIAG) be confirmedwit h an FDA authorized mole cular assay, if neces bret forpatient michael gement.A positive result does not rule out co-inf ections withother patho gens.This test detects moriah th viable (live) and non-viable,SARS -CoV, and SARS-CoV-2. Leanna t performance dep ends on theamount of vi joby (antigen) in th e sample.This leanna t has not been FDA cleare d or approved; the t est hasbeen authori zed by FDA under an Em ergency Use Authorizati on(EUA) for use by labo ratories certified under the CLIA thatmeet the requirements to perform moderate, high or waivedcomplexit y tests. COMMENTS: If not done this admissionCBC W/AUTO [id number] 08:47:00 Test Item Value Reference Range Interpretation Comments WHITE BLOOD CELL (test code = 12.6 x10 3/uL 4.5-11.0 H WBC) RED BLOOD CELL (test code = 2.63 x10 6/uL 4.00-5.60 L RBC) HEMOGLOBIN (test code = HGB) 7.5 g/dL 12.5-16.9 L HEMATOCRIT (test code = HCT) 25.2 % 37.5-50.7 L MEAN CELL VOLUME (test code = 95.8 fL 81.0-99.0 N MCV) MEAN CELL HGB (test code = MCH) 28.5 pg 27.0-33.0 N MEAN CELL HGB CONCETRATION 29.8 g/dL 33.0-37.0 L (test code = MCHC) RED CELL DISTRIBUTION WIDTH CV 15.2 % 11.5-14.5 H (test code = RDW) RED CELL DISTRIBUTION WIDTH SD 53.1 fL 37.0-54.0 N (test code = RDW-SD) PLATELET COUNT (test code = 160 x10 3/uL 150-400 N PLT) MEAN PLATELET VOLUME (test code 9.4 fL 7.0-9.0 H = MPV) NEUTROPHIL % (test code = NT%) 66.8 % 56.0-77.0 N IMMATURE GRANULOCYTE % (test 0.9 % 0.0-2.0 N code = IG%) LYMPHOCYTE % (test code = LY%) 19.2 % 14.0-32.0 N MONOCYTE % (test code = MO%) 11.5 % 4.8-9.0 H EOSINOPHIL % (test code = EO%) 1.2 % 0.3-3.7 N BASOPHIL % (test code = BA%) 0.4 % 0.0-2.0 N NUCLEATED RBC % (test code = 0.0 % 0-0 N NRBC%) NEUTROPHIL # (test code = NT#) 8.44 x10 3/uL 2.0-7.6 H IMMATURE GRANULOCYTE # (test 0.11 x10 3/uL 0.00-0.03 H code = IG#) LYMPHOCYTE # (test code = LY#) 2.42 x10 3/uL 1.0-3.8 N MONOCYTE # (test code = MO#) 1.45 x10 3/uL 0.1-0.8 H EOSINOPHIL # (test code = EO#) 0.15 x10 3/uL 0.0-0.2 N BASOPHIL # (test code = BA#) 0.05 x10 3/uL 0.0-0.2 N NUCLEATED RBC # (test code = 0.00 x10 3/uL 0.0-0.1 N NRBC#) MANUAL DIFF REQUIRED (test code NO = MDIFF) CBC W/AUTO [id number] 08:31:00 Test Item Value Reference Range Interpretation Comments WHITE BLOOD CELL (test code = x10 3/uL 4.5-11.0 WBC) RED BLOOD CELL (test code = RBC) x10 6/uL 4.00-5.60 HEMOGLOBIN (test code = HGB) g/dL 12.5-16.9 HEMATOCRIT (test code = HCT) % 37.5-50.7 MEAN CELL VOLUME (test code = fL 81.0-99.0 MCV) MEAN CELL HGB (test code = MCH) pg 27.0-33.0 MEAN CELL HGB CONCETRATION (test g/dL 33.0-37.0 code = MCHC) RED CELL DISTRIBUTION WIDTH CV % 11.5-14.5 (test code = RDW) PLATELET COUNT (test code = PLT) 160 x10 3/uL 150-400 N NEUTROPHIL % (test code = NT%) % 56.0-77.0 LYMPHOCYTE % (test code = LY%) % 14.0-32.0 NEUTROPHIL # (test code = NT#) x10 3/uL 2.0-7.6 LYMPHOCYTE # (test code = LY#) x10 3/uL 1.0-3.8 MANUAL DIFF REQUIRED (test code = MDIFF) BASIC METABOLIC [id number] 07:47:00 Test Item Value Reference Range Interpretation Comments SODIUM (test code = NA) 136 mEq/L 134-147 N POTASSIUM (test code = 4.1 mEq/L 3.4-5.0 N K) CHLORIDE (test code = 102 mEq/L 100-108 N CL) CARBON DIOXIDE (test 27 mEq/l 21-33 N code = CO2) ANION GAP (test code = 12 0-20 N GAP) GLUCOSE (test code = 94 mg/dL 70-110 N GLU) BLOOD UREA NITROGEN 30 mg/dL 7-18 H (test code = BUN) GLOMERULAR FILTRATION 9.8 80-90 L Units of measure = RATE (test code = GFR) ml/mi n/1.73 m2 CREATININE (test code = 5.8 mg/dL 0.6-1.3 H CREAT) CALCIUM (test code = 7.8 mg/dL 8.0-10.5 L CA) BASIC METABOLIC [id number] 08:14:00 Test Item Value Reference Range Interpretation Comments SODIUM (test code = NA) 137 mEq/L 134-147 N POTASSIUM (test code = 4.0 mEq/L 3.4-5.0 N K) CHLORIDE (test code = 102 mEq/L 100-108 N CL) CARBON DIOXIDE (test 29 mEq/l 21-33 N code = CO2) ANION GAP (test code = 10 0-20 N GAP) GLUCOSE (test code = 92 mg/dL 70-110 N GLU) BLOOD UREA NITROGEN 24 mg/dL 7-18 H (test code = BUN) GLOMERULAR FILTRATION 11.1 80-90 L Units of measure = RATE (test code = GFR) ml/mi n/1.73 m2 CREATININE (test code = 5.2 mg/dL 0.6-1.3 H CREAT) CALCIUM (test code = 8.2 mg/dL 8.0-10.5 N CA) CBC W/AUTO [id number] 06:59:00 Test Item Value Reference Range Interpretation Comments WHITE BLOOD CELL (test code = 14.0 x10 3/uL 4.5-11.0 H WBC) RED BLOOD CELL (test code = 3.05 x10 6/uL 4.00-5.60 L RBC) HEMOGLOBIN (test code = HGB) 8.8 g/dL 12.5-16.9 L HEMATOCRIT (test code = HCT) 29.0 % 37.5-50.7 L MEAN CELL VOLUME (test code = 95.1 fL 81.0-99.0 N MCV) MEAN CELL HGB (test code = MCH) 28.9 pg 27.0-33.0 N MEAN CELL HGB CONCETRATION 30.3 g/dL 33.0-37.0 L (test code = MCHC) RED CELL DISTRIBUTION WIDTH CV 15.7 % 11.5-14.5 H (test code = RDW) RED CELL DISTRIBUTION WIDTH SD 53.2 fL 37.0-54.0 N (test code = RDW-SD) PLATELET COUNT (test code = 175 x10 3/uL 150-400 N PLT) MEAN PLATELET VOLUME (test code 9.4 fL 7.0-9.0 H = MPV) NEUTROPHIL % (test code = NT%) 65.5 % 56.0-77.0 N IMMATURE GRANULOCYTE % (test 1.0 % 0.0-2.0 N code = IG%) LYMPHOCYTE % (test code = LY%) 19.9 % 14.0-32.0 N MONOCYTE % (test code = MO%) 12.0 % 4.8-9.0 H EOSINOPHIL % (test code = EO%) 1.1 % 0.3-3.7 N BASOPHIL % (test code = BA%) 0.5 % 0.0-2.0 N NUCLEATED RBC % (test code = 0.0 % 0-0 N NRBC%) NEUTROPHIL # (test code = NT#) 9.14 x10 3/uL 2.0-7.6 H IMMATURE GRANULOCYTE # (test 0.14 x10 3/uL 0.00-0.03 H code = IG#) LYMPHOCYTE # (test code = LY#) 2.78 x10 3/uL 1.0-3.8 N MONOCYTE # (test code = MO#) 1.67 x10 3/uL 0.1-0.8 H EOSINOPHIL # (test code = EO#) 0.16 x10 3/uL 0.0-0.2 N BASOPHIL # (test code = BA#) 0.07 x10 3/uL 0.0-0.2 N NUCLEATED RBC # (test code = 0.00 x10 3/uL 0.0-0.1 N NRBC#) MANUAL DIFF REQUIRED (test code NO = MDIFF) BASIC METABOLIC [id number] 08:22:00 Test Item Value Reference Range Interpretation Comments SODIUM (test code = NA) 138 mEq/L 134-147 N POTASSIUM (test code = 4.1 mEq/L 3.4-5.0 N K) CHLORIDE (test code = 103 mEq/L 100-108 N CL) CARBON DIOXIDE (test 26 mEq/l 21-33 N code = CO2) ANION GAP (test code = 13 0-20 N GAP) GLUCOSE (test code = 82 mg/dL 70-110 N GLU) BLOOD UREA NITROGEN 42 mg/dL 7-18 H (test code = BUN) GLOMERULAR FILTRATION 7.2 80-90 L Units of measure = RATE (test code = GFR) ml/mi n/1.73 m2 CREATININE (test code = 7.6 mg/dL 0.6-1.3 H CREAT) CALCIUM (test code = 7.5 mg/dL 8.0-10.5 L CA) [id number] 08:22:00 Test Item Value Reference Range Interpretation Comments PHOSPHOROUS (test code = PHOS) 4.3 MG/DL 2.5-4.9 N CBC W/AUTO [id number] 08:19:00 Test Item Value Reference Range Interpretation Comments WHITE BLOOD CELL (test code = 11.7 x10 3/uL 4.5-11.0 H WBC) RED BLOOD CELL (test code = 2.60 x10 6/uL 4.00-5.60 L RBC) HEMOGLOBIN (test code = HGB) 7.6 g/dL 12.5-16.9 L HEMATOCRIT (test code = HCT) 25.0 % 37.5-50.7 L MEAN CELL VOLUME (test code = 96.2 fL 81.0-99.0 N MCV) MEAN CELL HGB (test code = MCH) 29.2 pg 27.0-33.0 N MEAN CELL HGB CONCETRATION 30.4 g/dL 33.0-37.0 L (test code = MCHC) RED CELL DISTRIBUTION WIDTH CV 15.5 % 11.5-14.5 H (test code = RDW) RED CELL DISTRIBUTION WIDTH SD 52.9 fL 37.0-54.0 N (test code = RDW-SD) PLATELET COUNT (test code = 176 x10 3/uL 150-400 N PLT) MEAN PLATELET VOLUME (test code 9.0 fL 7.0-9.0 N = MPV) NEUTROPHIL % (test code = NT%) 69.8 % 56.0-77.0 N IMMATURE GRANULOCYTE % (test 1.0 % 0.0-2.0 N code = IG%) LYMPHOCYTE % (test code = LY%) 17.1 % 14.0-32.0 N MONOCYTE % (test code = MO%) 10.2 % 4.8-9.0 H EOSINOPHIL % (test code = EO%) 1.6 % 0.3-3.7 N BASOPHIL % (test code = BA%) 0.3 % 0.0-2.0 N NUCLEATED RBC % (test code = 0.0 % 0-0 N NRBC%) NEUTROPHIL # (test code = NT#) 8.17 x10 3/uL 2.0-7.6 H IMMATURE GRANULOCYTE # (test 0.12 x10 3/uL 0.00-0.03 H code = IG#) LYMPHOCYTE # (test code = LY#) 2.01 x10 3/uL 1.0-3.8 N MONOCYTE # (test code = MO#) 1.20 x10 3/uL 0.1-0.8 H EOSINOPHIL # (test code = EO#) 0.19 x10 3/uL 0.0-0.2 N BASOPHIL # (test code = BA#) 0.04 x10 3/uL 0.0-0.2 N NUCLEATED RBC # (test code = 0.00 x10 3/uL 0.0-0.1 N NRBC#) MANUAL DIFF REQUIRED (test code NO = MDIFF) BASIC METABOLIC [id number] 07:44:00 Test Item Value Reference Range Interpretation Comments SODIUM (test code = NA) 138 mEq/L 134-147 N POTASSIUM (test code = 4.1 mEq/L 3.4-5.0 N K) CHLORIDE (test code = 103 mEq/L 100-108 N CL) CARBON DIOXIDE (test 26 mEq/L 21-33 N code = CO2) ANION GAP (test code = 13 0-20 N GAP) GLUCOSE (test code = 85 mg/dL 70-110 N GLU) BLOOD UREA NITROGEN 34 mg/dL 7-18 H (test code = BUN) GLOMERULAR FILTRATION 7.6 80-90 L Units of measure = RATE (test code = GFR) ml/mi n/1.73 m2 CREATININE (test code = 7.2 mg/dL 0.6-1.3 H CREAT) CALCIUM (test code = 7.6 mg/dL 8.0-10.5 L CA) CBC W/AUTO [id number] 06:50:00 Test Item Value Reference Range Interpretation Comments WHITE BLOOD CELL (test code = 11.7 x10 3/uL 4.5-11.0 H WBC) RED BLOOD CELL (test code = 2.56 x10 6/uL 4.00-5.60 L RBC) HEMOGLOBIN (test code = HGB) 7.5 g/dL 12.5-16.9 L HEMATOCRIT (test code = HCT) 24.4 % 37.5-50.7 L MEAN CELL VOLUME (test code = 95.3 fL 81.0-99.0 N MCV) MEAN CELL HGB (test code = MCH) 29.3 pg 27.0-33.0 N MEAN CELL HGB CONCETRATION 30.7 g/dL 33.0-37.0 L (test code = MCHC) RED CELL DISTRIBUTION WIDTH CV 15.5 % 11.5-14.5 H (test code = RDW) RED CELL DISTRIBUTION WIDTH SD 52.0 fL 37.0-54.0 N (test code = RDW-SD) PLATELET COUNT (test code = 163 x10 3/uL 150-400 N PLT) MEAN PLATELET VOLUME (test code 9.2 fL 7.0-9.0 H = MPV) NEUTROPHIL % (test code = NT%) 68.2 % 56.0-77.0 N IMMATURE GRANULOCYTE % (test 1.2 % 0.0-2.0 N code = IG%) LYMPHOCYTE % (test code = LY%) 14.8 % 14.0-32.0 N MONOCYTE % (test code = MO%) 13.5 % 4.8-9.0 H EOSINOPHIL % (test code = EO%) 2.0 % 0.3-3.7 N BASOPHIL % (test code = BA%) 0.3 % 0.0-2.0 N NUCLEATED RBC % (test code = 0.0 % 0-0 N NRBC%) NEUTROPHIL # (test code = NT#) 7.96 x10 3/uL 2.0-7.6 H IMMATURE GRANULOCYTE # (test 0.14 x10 3/uL 0.00-0.03 H code = IG#) LYMPHOCYTE # (test code = LY#) 1.73 x10 3/uL 1.0-3.8 N MONOCYTE # (test code = MO#) 1.58 x10 3/uL 0.1-0.8 H EOSINOPHIL # (test code = EO#) 0.23 x10 3/uL 0.0-0.2 H BASOPHIL # (test code = BA#) 0.04 x10 3/uL 0.0-0.2 N NUCLEATED RBC # (test code = 0.00 x10 3/uL 0.0-0.1 N NRBC#) MANUAL DIFF REQUIRED (test code NO = MDIFF) CBC W/AUTO [id number] 06:49:00 Test Item Value Reference Range Interpretation Comments WHITE BLOOD CELL (test code = x10 3/uL 4.5-11.0 WBC) RED BLOOD CELL (test code = RBC) x10 6/uL 4.00-5.60 HEMOGLOBIN (test code = HGB) g/dL 12.5-16.9 HEMATOCRIT (test code = HCT) % 37.5-50.7 MEAN CELL VOLUME (test code = fL 81.0-99.0 MCV) MEAN CELL HGB (test code = MCH) pg 27.0-33.0 MEAN CELL HGB CONCETRATION (test g/dL 33.0-37.0 code = MCHC) RED CELL DISTRIBUTION WIDTH CV % 11.5-14.5 (test code = RDW) PLATELET COUNT (test code = PLT) 163 x10 3/uL 150-400 N NEUTROPHIL % (test code = NT%) % 56.0-77.0 LYMPHOCYTE % (test code = LY%) % 14.0-32.0 NEUTROPHIL # (test code = NT#) x10 3/uL 2.0-7.6 LYMPHOCYTE # (test code = LY#) x10 3/uL 1.0-3.8 MANUAL DIFF REQUIRED (test code = MDIFF) [id number] 13:07:00 Test Item Value Reference Range Interpretation Comments HAPTOGLOBIN (test code 275 mg/dL 32-363 Perfo rmed At: BN = HAPT) [facility] [id number] ra Jamia SANDERS Ph:[phone] BASIC METABOLIC [id number] 07:37:00 Test Item Value Reference Range Interpretation Comments SODIUM (test code = NA) 137 mEq/L 134-147 N POTASSIUM (test code = 4.4 mEq/L 3.4-5.0 N K) CHLORIDE (test code = 102 mEq/L 100-108 N CL) CARBON DIOXIDE (test 28 mEq/L 21-33 N code = CO2) ANION GAP (test code = 12 0-20 N GAP) GLUCOSE (test code = 90 mg/dL 70-110 N GLU) BLOOD UREA NITROGEN 29 mg/dL 7-18 H (test code = BUN) GLOMERULAR FILTRATION 9.4 80-90 L Units of measure = RATE (test code = GFR) ml/mi n/1.73 m2 CREATININE (test code = 6.0 mg/dL 0.6-1.3 H CREAT) CALCIUM (test code = 8.1 mg/dL 8.0-10.5 N CA) CBC W/AUTO [id number] 07:01:00 Test Item Value Reference Range Interpretation Comments WHITE BLOOD CELL (test code = 11.7 x10 3/uL 4.5-11.0 H WBC) RED BLOOD CELL (test code = 2.62 x10 6/uL 4.00-5.60 L RBC) HEMOGLOBIN (test code = HGB) 7.5 g/dL 12.5-16.9 L HEMATOCRIT (test code = HCT) 24.9 % 37.5-50.7 L MEAN CELL VOLUME (test code = 95.0 fL 81.0-99.0 N MCV) MEAN CELL HGB (test code = MCH) 28.6 pg 27.0-33.0 N MEAN CELL HGB CONCETRATION 30.1 g/dL 33.0-37.0 L (test code = MCHC) RED CELL DISTRIBUTION WIDTH CV 15.6 % 11.5-14.5 H (test code = RDW) RED CELL DISTRIBUTION WIDTH SD 52.2 fL 37.0-54.0 N (test code = RDW-SD) PLATELET COUNT (test code = 171 x10 3/uL 150-400 N PLT) MEAN PLATELET VOLUME (test code 9.6 fL 7.0-9.0 H = MPV) NEUTROPHIL % (test code = NT%) 68.4 % 56.0-77.0 N IMMATURE GRANULOCYTE % (test 1.2 % 0.0-2.0 N code = IG%) LYMPHOCYTE % (test code = LY%) 15.3 % 14.0-32.0 N MONOCYTE % (test code = MO%) 13.0 % 4.8-9.0 H EOSINOPHIL % (test code = EO%) 1.6 % 0.3-3.7 N BASOPHIL % (test code = BA%) 0.5 % 0.0-2.0 N NUCLEATED RBC % (test code = 0.0 % 0-0 N NRBC%) NEUTROPHIL # (test code = NT#) 8.01 x10 3/uL 2.0-7.6 H IMMATURE GRANULOCYTE # (test 0.14 x10 3/uL 0.00-0.03 H code = IG#) LYMPHOCYTE # (test code = LY#) 1.79 x10 3/uL 1.0-3.8 N MONOCYTE # (test code = MO#) 1.52 x10 3/uL 0.1-0.8 H EOSINOPHIL # (test code = EO#) 0.19 x10 3/uL 0.0-0.2 N BASOPHIL # (test code = BA#) 0.06 x10 3/uL 0.0-0.2 N NUCLEATED RBC # (test code = 0.00 x10 3/uL 0.0-0.1 N NRBC#) MANUAL DIFF REQUIRED (test code NO = MDIFF) CBC W/AUTO [id number] 06:55:00 Test Item Value Reference Range Interpretation Comments WHITE BLOOD CELL (test code = x10 3/uL 4.5-11.0 WBC) RED BLOOD CELL (test code = RBC) x10 6/uL 4.00-5.60 HEMOGLOBIN (test code = HGB) g/dL 12.5-16.9 HEMATOCRIT (test code = HCT) % 37.5-50.7 MEAN CELL VOLUME (test code = fL 81.0-99.0 MCV) MEAN CELL HGB (test code = MCH) pg 27.0-33.0 MEAN CELL HGB CONCETRATION (test g/dL 33.0-37.0 code = MCHC) RED CELL DISTRIBUTION WIDTH CV % 11.5-14.5 (test code = RDW) PLATELET COUNT (test code = PLT) 171 x10 3/uL 150-400 N NEUTROPHIL % (test code = NT%) % 56.0-77.0 LYMPHOCYTE % (test code = LY%) % 14.0-32.0 NEUTROPHIL # (test code = NT#) x10 3/uL 2.0-7.6 LYMPHOCYTE # (test code = LY#) x10 3/uL 1.0-3.8 MANUAL DIFF REQUIRED (test code = MDIFF) - DUP EXTRACRANIAL [id number] 10:19:00 [facility] STURGISName: JAMAAL ROGERS : 1950 Sex: M Name: JAMAAL ROGERS [facility] [place] : 1950 Age/S: 69 / M [address] [place] [address] Blvd Unit #: [id number] Loc: [place] [address] Phys: Miko Stone MD Acct: [id number] Dis Date: Status: ADM IN PHONE #: [phone] Exam Date: 04/14/2020835 FAX #: [phone] Reason: cva EXAMS: CPT CODE: [id number] DUP EXTRACRANIAL L[place]IN [id number] BILATERAL CAROTID ULTRASOUND HISTORY: Cerebrovascular accident TECHNIQUE:Aparicio-scale, color Doppler and spectral Doppler of the carotid arteries was performed. Any reported ICA stenoses indirectly reference the distal internal carotid diameter as the denominator for stenosis measurement, utilizing consensus panel criteria. COMPARISON: None RIGHT: Not evaluated due to external bandaging ICA PSV - cm/secCCA PSV - cm/sec ICA/CCA ratio - Vertebral flow is -. LEFT: There is mild carotid bulb plaque. ICA PSV 83 cm/sec CCA PSV 127 cm/sec ICA/CCA ratio 0.7 Vertebral flow is antegrade. IMPRESSION: 1. RIGHT: Not evaluated due to external bandaging. 2. LEFT: ICA stenosis less than 50 % by velocity criteria. End Impression Consensus panel Doppler US criteria for diagnosis of ICA stenosis. Stenosis (%) ICA PSV (cm/sec) ICA/CCA ratio <50 <125 <2.0 50-69 125-230 2.0-4.0 >70but less than >230 >4.0 near occlusion Near occlusion High, low, or Variable undetectable SL: [id number] PAGE 1 Signed Report (CONTINUED) Name: JAMAAL ROGERS [facility] [place] : 1950 Age/S: 69 / M [address] Unit #: [id number] Loc: [place] [address] Phys: Arsh Stone MD Acct: [id number] Dis Date: Status: ADM IN PHONE #: [phone] Exam Date: 04/14/2020835 FAX #: [phone] Reason: cva EXAMS: CPT CODE: [id number] DUP EXTRACRANIAL [place]IN 51792 <Continued> at 1019 Reported and signed by: Solo Collins M.D. CC: Nanda Culver MD; Miko Stone MD Technologist: Patrick Morales Trnscb Date/Time: 04/14/2020 (1019) [email or web address] Orig Print D/T: S: 04/14/2020 (1022) Probe: PAGE 2 Signed ReportBASIC METABOLIC [id number] 08:27:00 Test Item Value Reference Range Interpretation Comments SODIUM (test code = NA) 136 mEq/L 134-147 N POTASSIUM (test code = 4.2 mEq/L 3.4-5.0 N K) CHLORIDE (test code = 100 mEq/L 100-108 N CL) CARBON DIOXIDE (test 25 mEq/L 21-33 N code = CO2) ANION GAP (test code = 16 0-20 N GAP) GLUCOSE (test code = 86 mg/dL 70-110 N GLU) BLOOD UREA NITROGEN 46 mg/dL 7-18 H (test code = BUN) GLOMERULAR FILTRATION 6.1 80-90 L Units of measure = RATE (test code = GFR) ml/mi n/1.73 m2 CREATININE (test code = 8.7 mg/dL 0.6-1.3 H CREAT) CALCIUM (test code = 7.0 mg/dL 8.0-10.5 L CA) LIPID PROFILE (CORONARY RISK)2020-04-14 08:27:00 Test Item Value Reference Range Interpretation Comments TRIGLYCERIDES (test 156 mg/dL 40-150 H code = TRIG) CHOLESTEROL (test 136 mg/dL <200 code = CHOL) CHOLESTEROL/HDL 3.49 RATIO 3.43-4.97 N RISK ASSOCIA AMANDA WITH RATIO (test code = CHOL/HDL RATIOS: RISK CHOLHDL) MALE FEMALE1/2 AVERA GE 3.43 3.27AVERAGE 4.97 4.4 42X AVERAGE 9.55 7.053X AVER AGE 23.39 1 1.04 NOTE THAT THE R EFERENCE VALUE IS RELATE DTO RISK LEVELS RECOM MENDED BY THE NATL.HEA RT, LUNG, AND BLOOD INST. HDL CHOLESTEROL 39.0 mg/dL 32-72 N (test code = HDL) LIPOPROTEIN LDL 76.4 mg/dL 0-100 N <100 OPT NTIC103-775 (test code = LDL) NEAR OPTI MAL/ABOVE [id number] 89 HIGH>SI=625 VE RY HIGH*Guidelines provided by the National Choles terol Education[employer]gra m Adult Treatment Panel III CBC W/AUTO [id number] 07:44:00 Test Item Value Reference Range Interpretation Comments WHITE BLOOD CELL (test code = 12.6 x10 3/uL 4.5-11.0 H WBC) RED BLOOD CELL (test code = 2.41 x10 6/uL 4.00-5.60 L RBC) HEMOGLOBIN (test code = HGB) 7.0 g/dL 12.5-16.9 L HEMATOCRIT (test code = HCT) 22.9 % 37.5-50.7 L MEAN CELL VOLUME (test code = 95.0 fL 81.0-99.0 N MCV) MEAN CELL HGB (test code = MCH) 29.0 pg 27.0-33.0 N MEAN CELL HGB CONCETRATION 30.6 g/dL 33.0-37.0 L (test code = MCHC) RED CELL DISTRIBUTION WIDTH CV 15.9 % 11.5-14.5 H (test code = RDW) RED CELL DISTRIBUTION WIDTH SD 54.4 fL 37.0-54.0 H (test code = RDW-SD) PLATELET COUNT (test code = 229 x10 3/uL 150-400 N PLT) MEAN PLATELET VOLUME (test code 9.7 fL 7.0-9.0 H = MPV) NEUTROPHIL % (test code = NT%) 73.3 % 56.0-77.0 N IMMATURE GRANULOCYTE % (test 1.1 % 0.0-2.0 N code = IG%) LYMPHOCYTE % (test code = LY%) 12.8 % 14.0-32.0 L MONOCYTE % (test code = MO%) 10.8 % 4.8-9.0 H EOSINOPHIL % (test code = EO%) 1.7 % 0.3-3.7 N BASOPHIL % (test code = BA%) 0.3 % 0.0-2.0 N NUCLEATED RBC % (test code = 0.0 % 0-0 N NRBC%) NEUTROPHIL # (test code = NT#) 9.19 x10 3/uL 2.0-7.6 H IMMATURE GRANULOCYTE # (test 0.14 x10 3/uL 0.00-0.03 H code = IG#) LYMPHOCYTE # (test code = LY#) 1.61 x10 3/uL 1.0-3.8 N MONOCYTE # (test code = MO#) 1.36 x10 3/uL 0.1-0.8 H EOSINOPHIL # (test code = EO#) 0.21 x10 3/uL 0.0-0.2 H BASOPHIL # (test code = BA#) 0.04 x10 3/uL 0.0-0.2 N NUCLEATED RBC # (test code = 0.00 x10 3/uL 0.0-0.1 N NRBC#) MANUAL DIFF REQUIRED (test code NO = MDIFF) CBC W/AUTO [id number] 07:39:00 Test Item Value Reference Range Interpretation Comments WHITE BLOOD CELL (test code = x10 3/uL 4.5-11.0 WBC) RED BLOOD CELL (test code = RBC) x10 6/uL 4.00-5.60 HEMOGLOBIN (test code = HGB) g/dL 12.5-16.9 HEMATOCRIT (test code = HCT) % 37.5-50.7 MEAN CELL VOLUME (test code = fL 81.0-99.0 MCV) MEAN CELL HGB (test code = MCH) pg 27.0-33.0 MEAN CELL HGB CONCETRATION (test g/dL 33.0-37.0 code = MCHC) RED CELL DISTRIBUTION WIDTH CV % 11.5-14.5 (test code = RDW) PLATELET COUNT (test code = PLT) 229 x10 3/uL 150-400 N NEUTROPHIL % (test code = NT%) % 56.0-77.0 LYMPHOCYTE % (test code = LY%) % 14.0-32.0 NEUTROPHIL # (test code = NT#) x10 3/uL 2.0-7.6 LYMPHOCYTE # (test code = LY#) x10 3/uL 1.0-3.8 MANUAL DIFF REQUIRED (test code = MDIFF) AB HEPATITIS B [id number] 03:07:00 Test Item Value Reference Range Interpretation Comments AB HEPATITIS B < 3.1 mIU/mL Immunity>9.9 L Status of I mmunity SURFACE (test code = HBSAB) Anti-HBs Level --- I ncons istent with Imm unity 0.0 - 9.9Consis tent with Immunity >9.9Performed A t: [facility] [address] [id number] Deniz Lima MD Ph:[phone] - MRI BRAIN W/O [id number] 12:53:00 [facility] : 1950 Sex: M FAX: Nanda Culver MD [phone] [place]: St: ADM FAX: Miko Willis MD [phone] Name: JAMAAL ROGERS [facility] [place] : 1950 Age/S: 69/M [address] [place] [address] Blvd Unit #: [id number] Loc: G.4404 [place] [address] Phys: Miko Stone MD Acct: [id number] Dis Date: Status: ADM IN PHONE #: [phone] Exam Date: 04/13/2020 1159 FAX #: [phone] Reason: r/o CVA EXAMS: CPT CODE: [id number] MRI BRAIN W/O CONT 13408 MRI brain without contrast 04/13/2020 HISTORY: Change in mental status. PRO CEDURE: Multiplanar multisequence imaging of the brain was performed without contrast Comparison is made to CT performed 04/12/2020 FINDINGS: 15 mm area of acute ischemia is seen in the left ozuna radiata extending into the internal capsule. There is no acute intracranial hemorrhage, midline shift, extra-axial fluid collection, or hydrocephalus. The visualized mastoid air cells are clear. There is no paranasal sinus air-fluid level. There are mild areas of increased FLAIR signal in the cerebral white matter. There is mild atrophy. Craniocervical junction and corpus callosum are within normal limits. There is no blooming artifact on the heme sequence to suggest remote hemorrhage. IMPRESSION: 1. Acute infarct in left ozuna radiata extending into internal capsule. 2. No acute intracranial hemorrhage. 3. Baseline mild atrophy and mild chronic microvascular ischemic changes. SL: [id number] Electronically Signedby Alan Collins on 04/13/2020 at 1253 Reported and signed by: Solo Collins M.D. CC: Nanda Culver MD; Miko Stone MD Technologist: Jannet Baldwin, RT(R)(MR); ... Trnscrd Date/Time/By: 1 06/13/2019 (1253) : By: [email or web address] PAGE 1 Signed Report- NM BONE WHOLE [id number] 11:38:00 [facility] 1950 Sex: M FAX: Nanda Culver MD [phone] [place]: St: ADM FAX: Kit Edwards MD [phone] Name: JAMAAL ROGERS [facility] : 1950 Age/S: 69/M [address] [place] [address] Unit #: [id number] Loc: G.4404 [place] [address] Phys: Kit Reyes MD Acct: [id number] Dis Date: Status: ADM IN PHONE #: [phone] Exam Date: 04/13/2020 1115 FAX #: [phone] Reason: H/O prostate cancer with elevated PSA, eval for EXAMS: CPT CODE: [id number] [place] BONE WHOLE BODY [address] [facility] whole body bone scan: HISTORY: Prostate cancer, elevated PSA. COMPARISON: No prior relevant comparison study. TECHNIQUE: The patient was injected IV with25 mCi 99m technetium HDP in the left antecubital fossa. Whole-body bone scan completed in the anterior and posterior projection. FINDINGS: Several foci of increased uptake are found throughout the skeleton compatible with metastatic disease. Uptake in the right maxillary region may be from metastatic disease, periodontal disease or even inflammatory disease in the right maxillary sinus. There are metastatic deposits at T4 and T5 vertebral bodies, right T6 and T12 pedicles, right posterior sixth and left posterior eighth and ninth ribs. Additional metastatic deposits are found posterior lumbar spine in the pedicles right L2 and L3, left L5 and vertebral body at L2. Additional metastases noted in the pelvis involving the bilateral sacral alae, right ischium and left inferior pubic symphysis. Bilateral renal function is noted. There is mild arthritic accumulation in both knees IMPRESSION: Multiple bony metastases are noted. SL: [id number] at 1138 Reported and signed by: Nicola Moran M.D. CC: Nanda Culver MD; Kit Reyes Technologist:JERRY Rodriguez (N)(CT); ... Trnscrd Date/Time/By: 04/13/2020 (1138) : By:DayETG PAGE 1 Signed Report- CT CHEST W/O [id number] 08:08:00[facility] : 1950 Sex: M Name: JAMAAL ROGERS [facility] : 1950 Age/S: 69 / M [address] [place] [address] Unit #: [id number] Loc: ABDIFATAH [place] [address] Phys: Kit Reyes MD Acct: [id number] Dis Date: Status: ADM IN PHONE #: [phone] Exam Date: 04/13/2020725 FAX #: [phone] Reason: Pulmonary nodules, prostate cancer EXAMS: CPT CODE: [id number] CT CHEST W/O CONTRAST 60116 PROCEDURE: CT CHEST WITHOUT CONTRAST 04/13/2020 INDICATION: Prostate cancer. Pulmonarynodules COMPARISON: Abdomen CT 04/08/2020 and chest one view 04/07/2020.TECHNIQUE: Noncontrasted helical imaging performed apices through the lung bases with axial and coronal reformations. CT imaging performed at this location utilizes radiation dose optimization techniques which include one or more of the following: -Automated exposure control -Adjustment of the mA and/or kV according to patient size -Use of iterative reconstruction technique. ADMINISTERED CONTRAST: None. DLP: 239.4 mGy-cm FINDINGS: LUNGS: Multiple noncalcified bilateral pulmonary nodules are noted measuring up to 12 mm in theright middle lobe abutting the major fissure (3, 199). Bilateral dependent subsegmental atelectasis is seen with no pulmonary edema or consolidation. No pleural effusion or pneumothorax. MEDIASTINUM: Cardiomegaly with moderate to severe coronary calcification. Mild diffuse hypodensity of the intravascular blood is noted. No hilar or mediastinal adenopathy. A 4.8 x 3 x 2.9 cm left thyroid nodule is noted with dense peripheral calcification, incompletely characterized. Diffuse hypodensity of the thyroid gland is noted to be correlated for decreased thyroid function. Right IJ central venous catheter tip terminating at the level of the cavoatrial junction. UPPER ABDOMEN: Partially imaged right hydronephrosis. Please refer to the recent abdomen CT report for a complete description of the abdominal findings. MUSCULOSKELETAL: Moderate to severe thoracic spondylosis without d estructive bone lesions. IMPRESSION: 1. Multiple noncalcified bilateral pulmonary nodules concerning for metastatic disease given history. 2. Cardiomegaly and atherosclerosis. 3. Diffuse hypodensity of the intravascular blood. Correlate for decreased hematocrit component. PAGE 1 Signed Report (CONTINUED) Name: JAMAAL ROGERS [facility] [place] : 1950 Age/S: 69 / M [address] [place] [address] Unit #: [id number] Loc: ABDIFATAH [place] [address] Phys: Kit Reyes MD Acct: [id number] Dis Date: Status: ADM IN PHONE #: [phone] Exam Date: 04/13/2020725 FAX #: [phone] Reason: Pulmonary nodules, prostate cancer EXAMS:CPT CODE: [id number] CT CHEST W/O CONTRAST 82231 <Continued> 4. Partially imaged right hydronephrosis. Please refer to the recent abdomen CT report. 5. Peripherally calcified left thyroid nodule with overall decreased thyroid density to be correlated for decreased thyroid function. ____ The [employer] (ACR) consensus guidelines for incidental thyroid nodules detected on CT or MRI re commended: Age < 35 years < 1 cm: No further evaluation. >= 1 cm: Evaluate with thyroid ultrasound. Age >= 35 years < 1.5 cm: No further evaluation. >= 1.5 cm: Evaluate with thyroid ultrasound. SL:[id number] at 0808 Reported and signed by: Deniz Meadows M.D. CC: Nanda Culver MD; Kit Reyes Technologist:RT Harriet(R) CTDI: DLP: Trnscb Date/Time: 04/13/2020 (0808) [email or web address] Orig Print D/T: S: 04/13/2020 (0811) PAGE 2 Signed ReportCBC W/AUTO [id number] 07:56:00 Test Item Value Reference Range Interpretation Comments WHITE BLOOD CELL (test code = 13.8 x10 3/uL 4.5-11.0 H WBC) RED BLOOD CELL (test code = 2.46 x10 6/uL 4.00-5.60 L RBC) HEMOGLOBIN (test code = HGB) 7.2 g/dL 12.5-16.9 L HEMATOCRIT (test code = HCT) 23.0 % 37.5-50.7 L MEAN CELL VOLUME (test code = 93.5 fL 81.0-99.0 MCV) MEAN CELL HGB (test code = 29.3 pg 27.0-33.0 N MCH) MEAN CELL HGB CONCETRATION 31.3 g/dL 33.0-37.0 L (test code = MCHC) RED CELL DISTRIBUTION WIDTH CV 15.9 % 11.5-14.5 H (test code = RDW) RED CELL DISTRIBUTION WIDTH SD 52.7 fL 37.0-54.0 N (test code = RDW-SD) PLATELET COUNT (test code = 195 x10 3/uL 150-400 N PLT) MEAN PLATELET VOLUME (test 10.2 fL 7.0-9.0 H code = MPV) NEUTROPHIL % (test code = NT%) 74.3 % 56.0-77.0 N IMMATURE GRANULOCYTE % (test 0.7 % 0.0-2.0 N code = IG%) LYMPHOCYTE % (test code = LY%) 12.6 % 14.0-32.0 L MONOCYTE % (test code = MO%) 11.4 % 4.8-9.0 H EOSINOPHIL % (test code = EO%) 0.8 % 0.3-3.7 N BASOPHIL % (test code = BA%) 0.2 % 0.0-2.0 N NUCLEATED RBC % (test code = 0.0 % 0-0 N NRBC%) NEUTROPHIL # (test code = NT#) 10.27 x10 3/uL 2.0-7.6 H IMMATURE GRANULOCYTE # (test 0.10 x10 3/uL 0.00-0.03 H code = IG#) LYMPHOCYTE # (test code = LY#) 1.74 x10 3/uL 1.0-3.8 N MONOCYTE # (test code = MO#) 1.57 x10 3/uL 0.1-0.8 H EOSINOPHIL # (test code = EO#) 0.11 x10 3/uL 0.0-0.2 N BASOPHIL # (test code = BA#) 0.03 x10 3/uL 0.0-0.2 N NUCLEATED RBC # (test code = 0.00 x10 3/uL 0.0-0.1 N NRBC#) MANUAL DIFF REQUIRED (test NO code = MDIFF) BASIC METABOLIC [id number] 07:56:00 Test Item Value Reference Range Interpretation Comments SODIUM (test code = NA) 137 mEq/L 134-147 N POTASSIUM (test code = 4.0 mEq/L 3.4-5.0 N K) CHLORIDE (test code = 101 mEq/L 100-108 N CL) CARBON DIOXIDE (test 27 mEq/L 21-33 N code = CO2) ANION GAP (test code = 13 0-20 N GAP) GLUCOSE (test code = 103 mg/dL 70-110 N GLU) BLOOD UREA NITROGEN 34 mg/dL 7-18 H (test code = BUN) GLOMERULAR FILTRATION 7.9 80-90 L Units of measure = RATE (test code = GFR) ml/mi n/1.73 m2 CREATININE (test code = 7.0 mg/dL 0.6-1.3 H CREAT) CALCIUM (test code = 6.9 mg/dL 8.0-10.5 L CA) - CT HEAD/BRAIN W/O [id number] 13:42:00 [facility] : 1950 Sex: M Name: JAMAAL ROGERS [facility] : 1950 Age/S: 69 / M [address] Unit #: [id number] Loc: [place] [address] Phys: Miko Stone MD Acct: [id number] Dis Date: Status: ADM IN PHONE #: [phone] Exam Date: 04/12/2020 1311 FAX #: [phone] Reason: r/o cva, right sided weakness EXAMS: CPT CODE: [id number] CT HEAD/BRAIN W/O CONT 26657 CT head without contrast 04/12/2020 HISTORY: Right-sided weakness. PROCEDURE: Multiple axial images from the skull base to the skull vertex were obtained without contrast. Coronal and sagittal reconstructed images were performed CT imaging performed at this location utilizes radiation dose optimization techniques which include one or more of the following: -Automated exposure control -Adjustment of the mA and/or kV according to patient size -Use of iterative reconstruction technique CT Radiation Dose DLP 593.63 mGy-cm FINDINGS: 15 mm hypodense area in the left ozuna radiata extends into the internal capsule. There are mild white matter hypodensities. No acute hemorrhage or midline shift is pres ent. No extra-axial fluid collection is present. The visualized mastoid air cells are clear. There is no paranasal sinus air-fluid level. Distal internal carotid arterial calcifications are present. IMPRESSION: 1. Age-indeterminate infarct in left ozuna radiata extending into internal capsule. 2. No acute intracranial hemorrhage. SL: [id number] at 1342 Reported and signed by: Solo Collins M.D. CC: Nanda Culver MD; Miko Stone MD Technologist:Casandra Michaels, RT(R)(CT) CTDI: DLP: Trnscb Date/Time: 04/12/2020 (1342) [email or web address] Orig Print D/T: S: 04/12/2020 (1182) PAGE 1 Signed ReportCB W/AUTO [id number] 11:21:00 Test Item Value Reference Range Interpretation Comments WHITE BLOOD CELL (test code = 12.4 x10 3/uL 4.5-11.0 H WBC) RED BLOOD CELL (test code = 2.40 x10 6/uL 4.00-5.60 L RBC) HEMOGLOBIN (test code = HGB) 7.2 g/dL 12.5-16.9 L HEMATOCRIT (test code = HCT) 21.4 % 37.5-50.7 L MEAN CELL VOLUME (test code = 89.2 fL 81.0-99.0 N MCV) MEAN CELL HGB (test code = MCH) 30.0 pg 27.0-33.0 N MEAN CELL HGB CONCETRATION 33.6 g/dL 33.0-37.0 N (test code = MCHC) RED CELL DISTRIBUTION WIDTH CV 15.4 % 11.5-14.5 H (test code = RDW) RED CELL DISTRIBUTION WIDTH SD 48.8 fL 37.0-54.0 N (test code = RDW-SD) PLATELET COUNT (test code = 138 x10 3/uL 150-400 L PLT) MEAN PLATELET VOLUME (test code 10.7 fL 7.0-9.0 H = MPV) NEUTROPHIL % (test code = NT%) 80.0 % 56.0-77.0 H IMMATURE GRANULOCYTE % (test 0.7 % 0.0-2.0 N code = IG%) LYMPHOCYTE % (test code = LY%) 10.0 % 14.0-32.0 L MONOCYTE % (test code = MO%) 8.5 % 4.8-9.0 N EOSINOPHIL % (test code = EO%) 0.6 % 0.3-3.7 N BASOPHIL % (test code = BA%) 0.2 % 0.0-2.0 N NUCLEATED RBC % (test code = 0.0 % 0-0 N NRBC%) NEUTROPHIL # (test code = NT#) 9.87 x10 3/uL 2.0-7.6 H IMMATURE GRANULOCYTE # (test 0.09 x10 3/uL 0.00-0.03 H code = IG#) LYMPHOCYTE # (test code = LY#) 1.24 x10 3/uL 1.0-3.8 N MONOCYTE # (test code = MO#) 1.05 x10 3/uL 0.1-0.8 H EOSINOPHIL # (test code = EO#) 0.08 x10 3/uL 0.0-0.2 N BASOPHIL # (test code = BA#) 0.02 x10 3/uL 0.0-0.2 N NUCLEATED RBC # (test code = 0.00 x10 3/uL 0.0-0.1 N NRBC#) MANUAL DIFF REQUIRED (test code NO = MDIFF) AG PROSTATE [id number] 09:20:00 Test Item Value Reference Range Interpretation Comments AG PROSTATE 2360.78 ng/mL 0.00-4.00 H ADVISORY:POST- PROSTATECTO SPECIFIC (test MY PATIENTS:A ny elevated code = PSA) results that wo uld lead to a decision t o treatthe patient should be confirmed by an ALTERNATE METHOD. Itis n ot sufficient to r epeat the result by this same method. On the other hand, serial me asurements of PSA that yieldundetectab le results (less than 0.2 ng/mL) are reliable anddo not require confirm ation by an alternate me thod. PATIENT BEING M ONITORED FOR CHANGES IN DISEASE STATUS:Any sust ained or elevated PSA re sult that would lead to a treatment decision should be confirmed by an alternatemethod . It is not sufficient to repeat the result by t hissame method. Serial measurements of PSA that yielddecreasing results are likely to b e qualitatively r eliableand do not require confirmation by an alternate metho d. BASIC METABOLIC [id number] 08:28:00 Test Item Value Reference Range Interpretation Comments SODIUM (test code = NA) 138 mEq/L 134-147 N POTASSIUM (test code = 4.5 mEq/L 3.4-5.0 N K) CHLORIDE (test code = 101 mEq/L 100-108 N CL) CARBON DIOXIDE (test 25 mEq/L 21-33 N code = CO2) ANION GAP (test code = 16 0-20 N GAP) GLUCOSE (test code = 95 mg/dL 70-110 N GLU) BLOOD UREA NITROGEN 60 mg/dL 7-18 H (test code = BUN) GLOMERULAR FILTRATION 6.0 80-90 L Units of measure = RATE (test code = GFR) ml/mi n/1.73 m2 CREATININE (test code = 8.9 mg/dL 0.6-1.3 H CREAT) CALCIUM (test code = 7.0 mg/dL 8.0-10.5 L CA) LACTIC DEHYDROGENASE(LDH)2020-04-12 08:28:00 Test Item Value Reference Range Interpretation Comments LACTIC DEHYDROGENASE(LDH) (test 377 IUnits/L 87-241 H code = LDH) RETIC COUNT (AUTOMATED)2020-04-12 07:58:00 Test Item Value Reference Range Interpretation Comments RETIC COUNT (AUTOMATED) (test code = 3.3 % 0.3-2.3 H RETICA) RENAL FUNCTION [id number] 16:56:00 Test Item Value Reference Range Interpretation Comments SODIUM (test code = NA) 132 mEq/L 134-147 L POTASSIUM (test code = 4.8 mEq/L 3.4-5.0 N K) CHLORIDE (test code = 99 mEq/L 100-108 L CL) CARBON DIOXIDE (test 21 mEq/L 21-33 N code = CO2) ANION GAP (test code = 17 0-20 N GAP) GLUCOSE (test code = 104 mg/dL 70-110 N GLU) BLOOD UREA NITROGEN 100 mg/dL 7-18 H (test code = BUN) GLOMERULAR FILTRATION 3.7 80-90 L Units of measure = RATE (test code = GFR) ml/mi n/1.73 m2 CREATININE (test code = 13.5 mg/dL 0.6-1.3 H CREAT) ALBUMIN (test code = 2.30 g/dL 3.4-5.0 L ALB) CALCIUM (test code = 6.5 mg/dL 8.0-10.5 L CA) PHOSPHOROUS (test code 9.5 MG/DL 2.5-4.9 H = PHOS) HGB [id number] 16:38:00 Test Item Value Reference Range Interpretation Comments HEMOGLOBIN (test code = 6.4 g/dL 12.5-16.9 LL Crit ical result called HGB) to Patel HESSLAB.MFC at 04/11/20Nurse r ead back result and tech confirmed it's correct? YES HEMATOCRIT (test code = 19.1 % 37.5-50.7 L HCT) CBC W/AUTO [id number] 08:28:00 Test Item Value Reference Range Interpretation Comments WHITE BLOOD CELL (test 14.6 x10 3/uL 4.5-11.0 H code = WBC) RED BLOOD CELL (test 2.20 x10 6/uL 4.00-5.60 L code = RBC) HEMOGLOBIN (test code 6.4 g/dL 12.5-16.9 LL Critic al result = HGB) called to Patel LEALAB.JJ1 at 01 1204/11/20Nurse r ead back resut and tech confirmed it's correct? Y ES HEMATOCRIT (test code 19.8 % 37.5-50.7 L = HCT) MEAN CELL VOLUME (test 90.0 fL 81.0-99.0 code = MCV) MEAN CELL HGB (test 29.1 pg 27.0-33.0 N code = MCH) MEAN CELL HGB 32.3 g/dL 33.0-37.0 L CONCETRATION (test code = MCHC) RED CELL DISTRIBUTION 15.8 % 11.5-14.5 H WIDTH CV (test code = RDW) RED CELL DISTRIBUTION 50.2 fL 37.0-54.0 N WIDTH SD (test code = RDW-SD) PLATELET COUNT (test 111 x10 3/uL 150-400 L code = PLT) MEAN PLATELET VOLUME 10.9 fL 7.0-9.0 H (test code = MPV) NEUTROPHIL % (test 77.3 % 56.0-77.0 H code = NT%) IMMATURE GRANULOCYTE % 0.5 % 0.0-2.0 N (test code = IG%) LYMPHOCYTE % (test 12.3 % 14.0-32.0 L code = LY%) MONOCYTE % (test code 9.3 % 4.8-9.0 H = MO%) EOSINOPHIL % (test 0.5 % 0.3-3.7 N code = EO%) BASOPHIL % (test code 0.1 % 0.0-2.0 N = BA%) NUCLEATED RBC % (test 0.0 % 0-0 N code = NRBC%) NEUTROPHIL # (test 11.29 x10 3/uL 2.0-7.6 H code = NT#) IMMATURE GRANULOCYTE # 0.07 x10 3/uL 0.00-0.03 H (test code = IG#) LYMPHOCYTE # (test 1.79 x10 3/uL 1.0-3.8 N code = LY#) MONOCYTE # (test code 1.36 x10 3/uL 0.1-0.8 H = MO#) EOSINOPHIL # (test 0.07 x10 3/uL 0.0-0.2 N code = EO#) BASOPHIL # (test code 0.01 x10 3/uL 0.0-0.2 N = BA#) NUCLEATED RBC # (test 0.00 x10 3/uL 0.0-0.1 N code = NRBC#) MANUAL DIFF REQUIRED NO (test code = MDIFF) PROTEIN ELECTROPHORESIS [id number] 13:11:00 Test Item Value Reference Range Interpretation Comments TOTAL PROTEIN 6.3 g/dL 6.0-8.5 (test code = PROTE) ALBUMIN (test 3.3 g/dL 2.9-4.4 code = ALBE) EMTMB-6-QLTZDHUW 0.4 g/dL 0.0-0.4 (test code = A1G) BRGDU-2-AREUYELL 0.6 g/dL 0.4-1.0 (test code = A2G) BETA GLOBULIN 0.9 g/dL 0.7-1.3 (test code = BG) GAMMA GLOBULIN 1.1 g/dL 0.4-1.8 (test code = GG) M-SPIKE,SERUM Not Observed g/dL Not Observed (test code = MSPIKES) GLOBULIN ELECT 3.0 g/dL 2.2-3.9 (test code = GLOBE) ALBUMIN/GLOBULIN 1.1 0.7-1.7 RATIO (test code = AGE) PROT.ELECTROPH.IN () The SPE pa ttern TERPRETATION appears (test code = unremarkable. ELEINT) Evidence ofmonoclonal pr otein is not apparent.Perfor med At: [facility] Hbwwocv02[address] [place], [place] [id number] Kyle L MD Ph:[phone] rform ed At: [facility] [address] [facility] [address] [place], [place] [id number] swathi SANTILLAN MD Ph:[phone] ACUTE HEPATITIS [id number] 10:12:00 Test Item Value Reference Range Interpretation Comments AB HEPATITIS A IGM (test NON REACTIVE INDEX NON REACT. code = HAVMAB) AG HEPATITIS B SURFACE NON REACTIVE INDEX NonReactive (test code = HBSAG) AB HEPATITIS B CORE IGM NON REACTIVE INDEX NON REACT. (test code = HBCMAB) AB HEPATITIS C (test code NON REACTIVE INDEX NON REACT. = HCVAB) AB HEPATITIS B [id number] 10:12:00 Test Item Value Reference Range Interpretation Comments AB HEPATITIS B CORE Negative Negative Performe d At: (test code = HBCAB) [facility] [id number] [place], [place] [id number] sybil Lima MD Ph:[phone] CBC W/AUTO [id number] 08:47:00 Test Item Value Reference Range Interpretation Comments WHITE BLOOD CELL (test code = 14.5 x10 3/uL 4.5-11.0 H WBC) RED BLOOD CELL (test code = 2.24 x10 6/uL 4.00-5.60 L RBC) HEMOGLOBIN (test code = HGB) 6.5 g/dL 12.5-16.9 L HEMATOCRIT (test code = HCT) 20.9 % 37.5-50.7 L MEAN CELL VOLUME (test code = 93.3 fL 81.0-99.0 MCV) MEAN CELL HGB (test code = 29.0 pg 27.0-33.0 N MCH) MEAN CELL HGB CONCETRATION 31.1 g/dL 33.0-37.0 L (test code = MCHC) RED CELL DISTRIBUTION WIDTH CV 15.7 % 11.5-14.5 H (test code = RDW) RED CELL DISTRIBUTION WIDTH SD 52.4 fL 37.0-54.0 N (test code = RDW-SD) PLATELET COUNT (test code = 99 x10 3/uL 150-400 L PLT) MEAN PLATELET VOLUME (test 11.2 fL 7.0-9.0 H code = MPV) NEUTROPHIL % (test code = NT%) 75.8 % 56.0-77.0 N IMMATURE GRANULOCYTE % (test 0.6 % 0.0-2.0 N code = IG%) LYMPHOCYTE % (test code = LY%) 12.6 % 14.0-32.0 L MONOCYTE % (test code = MO%) 10.9 % 4.8-9.0 H EOSINOPHIL % (test code = EO%) 0.0 % 0.3-3.7 L BASOPHIL % (test code = BA%) 0.1 % 0.0-2.0 N NUCLEATED RBC % (test code = 0.1 % 0-0 H NRBC%) NEUTROPHIL # (test code = NT#) 11.02 x10 3/uL 2.0-7.6 H IMMATURE GRANULOCYTE # (test 0.09 x10 3/uL 0.00-0.03 H code = IG#) LYMPHOCYTE # (test code = LY#) 1.83 x10 3/uL 1.0-3.8 N MONOCYTE # (test code = MO#) 1.59 x10 3/uL 0.1-0.8 H EOSINOPHIL # (test code = EO#) 0.00 x10 3/uL 0.0-0.2 N BASOPHIL # (test code = BA#) 0.01 x10 3/uL 0.0-0.2 N NUCLEATED RBC # (test code = 0.02 x10 3/uL 0.0-0.1 N NRBC#) MANUAL DIFF REQUIRED (test NO code = MDIFF) PLT [id number] 08:47:00 Test Item Value Reference Range Interpretation Comments PLATELET ESTIMATE (test code 112-140 THOUSAND ADEQUATE = PLTEST) PLATELET MORPHOLOGY (test LARGE PLATELETS code = PLTMORPH) CBC W/AUTO [id number] 08:02:00 Test Item Value Reference Range Interpretation Comments WHITE BLOOD CELL (test code = 14.5 x10 3/uL 4.5-11.0 H WBC) RED BLOOD CELL (test code = 2.24 x10 6/uL 4.00-5.60 L RBC) HEMOGLOBIN (test code = HGB) 6.5 g/dL 12.5-16.9 L HEMATOCRIT (test code = HCT) 20.9 % 37.5-50.7 L MEAN CELL VOLUME (test code = 93.3 fL 81.0-99.0 MCV) MEAN CELL HGB (test code = 29.0 pg 27.0-33.0 N MCH) MEAN CELL HGB CONCETRATION 31.1 g/dL 33.0-37.0 L (test code = MCHC) RED CELL DISTRIBUTION WIDTH CV 15.7 % 11.5-14.5 H (test code = RDW) RED CELL DISTRIBUTION WIDTH SD 52.4 fL 37.0-54.0 N (test code = RDW-SD) PLATELET COUNT (test code = x10 3/uL 150-400 PLT) MEAN PLATELET VOLUME (test 11.2 fL 7.0-9.0 H code = MPV) NEUTROPHIL % (test code = NT%) 75.8 % 56.0-77.0 N IMMATURE GRANULOCYTE % (test 0.6 % 0.0-2.0 N code = IG%) LYMPHOCYTE % (test code = LY%) 12.6 % 14.0-32.0 L MONOCYTE % (test code = MO%) 10.9 % 4.8-9.0 H EOSINOPHIL % (test code = EO%) 0.0 % 0.3-3.7 L BASOPHIL % (test code = BA%) 0.1 % 0.0-2.0 N NUCLEATED RBC % (test code = 0.1 % 0-0 H NRBC%) NEUTROPHIL # (test code = NT#) 11.02 x10 3/uL 2.0-7.6 H IMMATURE GRANULOCYTE # (test 0.09 x10 3/uL 0.00-0.03 H code = IG#) LYMPHOCYTE # (test code = LY#) 1.83 x10 3/uL 1.0-3.8 N MONOCYTE # (test code = MO#) 1.59 x10 3/uL 0.1-0.8 H EOSINOPHIL # (test code = EO#) 0.00 x10 3/uL 0.0-0.2 N BASOPHIL # (test code = BA#) 0.01 x10 3/uL 0.0-0.2 N NUCLEATED RBC # (test code = 0.02 x10 3/uL 0.0-0.1 N NRBC#) MANUAL DIFF REQUIRED (test NO code = MDIFF) PLT [id number] 08:02:00 Test Item Value Reference Range Interpretation Comments PLATELET ESTIMATE (test code = THOUSAND ADEQUATE PLTEST) CBC W/AUTO [id number] 08:02:00 Test Item Value Reference Range Interpretation Comments WHITE BLOOD CELL (test code = 14.5 x10 3/uL 4.5-11.0 H WBC) RED BLOOD CELL (test code = 2.24 x10 6/uL 4.00-5.60 L RBC) HEMOGLOBIN (test code = HGB) 6.5 g/dL 12.5-16.9 L HEMATOCRIT (test code = HCT) 20.9 % 37.5-50.7 L MEAN CELL VOLUME (test code = 93.3 fL 81.0-99.0 MCV) MEAN CELL HGB (test code = 29.0 pg 27.0-33.0 N MCH) MEAN CELL HGB CONCETRATION 31.1 g/dL 33.0-37.0 L (test code = MCHC) RED CELL DISTRIBUTION WIDTH CV 15.7 % 11.5-14.5 H (test code = RDW) RED CELL DISTRIBUTION WIDTH SD 52.4 fL 37.0-54.0 N (test code = RDW-SD) PLATELET COUNT (test code = x10 3/uL 150-400 PLT) MEAN PLATELET VOLUME (test 11.2 fL 7.0-9.0 H code = MPV) NEUTROPHIL % (test code = NT%) 75.8 % 56.0-77.0 N IMMATURE GRANULOCYTE % (test 0.6 % 0.0-2.0 N code = IG%) LYMPHOCYTE % (test code = LY%) 12.6 % 14.0-32.0 L MONOCYTE % (test code = MO%) 10.9 % 4.8-9.0 H EOSINOPHIL % (test code = EO%) 0.0 % 0.3-3.7 L BASOPHIL % (test code = BA%) 0.1 % 0.0-2.0 N NUCLEATED RBC % (test code = 0.1 % 0-0 H NRBC%) NEUTROPHIL # (test code = NT#) 11.02 x10 3/uL 2.0-7.6 H IMMATURE GRANULOCYTE # (test 0.09 x10 3/uL 0.00-0.03 H code = IG#) LYMPHOCYTE # (test code = LY#) 1.83 x10 3/uL 1.0-3.8 N MONOCYTE # (test code = MO#) 1.59 x10 3/uL 0.1-0.8 H EOSINOPHIL # (test code = EO#) 0.00 x10 3/uL 0.0-0.2 N BASOPHIL # (test code = BA#) 0.01 x10 3/uL 0.0-0.2 N NUCLEATED RBC # (test code = 0.02 x10 3/uL 0.0-0.1 N NRBC#) MANUAL DIFF REQUIRED (test NO code = MDIFF) PLT [id number] 08:02:00 Test Item Value Reference Range Interpretation Comments PLATELET ESTIMATE (test code = THOUSAND ADEQUATE PLTEST) BASIC METABOLIC [id number] 07:53:00 Test Item Value Reference Range Interpretation Comments SODIUM (test code = NA) 134 mEq/L 134-147 N POTASSIUM (test code = 4.6 mEq/L 3.4-5.0 N K) CHLORIDE (test code = 100 mEq/L 100-108 N CL) CARBON DIOXIDE (test 23 mEq/L 21-33 code = CO2) ANION GAP (test code = 16 0-20 N GAP) GLUCOSE (test code = 107 mg/dL 70-110 N GLU) BLOOD UREA NITROGEN 81 mg/dL 7-18 H (test code = BUN) GLOMERULAR FILTRATION 4.4 80-90 L Units of measure = RATE (test code = GFR) ml/mi n/1.73 m2 CREATININE (test code = 11.5 mg/dL 0.6-1.3 H CREAT) CALCIUM (test code = 7.2 mg/dL 8.0-10.5 L CA) TOTAL IRON BINDING [id number] 16:33:00 Test Item Value Reference Range Interpretation Comments SERUM IRON (test code = IRON) 34 mcg/dL 35-150 L TOTAL IRON BINDING CAPACITY (test 221 mcg/dL 260-445 L code = TIBC) UIBC (test code = UIBC) 187 mcg/dL IRON SATURATION (test code = 15.4 % 14-34 N FESAT) [id number] 16:33:00 Test Item Value Reference Range Interpretation Comments FERRITIN (test code = INGRID) 903.6 ng/mL 23.9-336.2 H HGB [id number] 10:14:00 Test Item Value Reference Range Interpretation Comments HEMOGLOBIN (test code = HGB) 7.7 g/dL 12.5-16.9 L HEMATOCRIT (test code = HCT) 24.4 % 37.5-50.7 L - XR FLUOROSCOPY 0-60 [id number] 07:14:00 [facility] : 1950 Sex: M FAX: Nanda Culver MD [phone] [place]: St: FAX: Prasad Wood MD [phone] Name: JAMAAL ROGERS [facility] [place] : 1950 Age/S: 69/M [address] [place] [address] Unit #: [id number] Loc: G.3354 [place] [address] Phys: Prasad Medina MD Acct: [id number] Dis Date: Status: ADM IN PHONE #: [phone] Exam Date: 04/08/2020 180 FAX #: [phone] Reason: CYSTOSCOPY; CLOT RETENTION EXAMS: CPT CODE: [id number] XR FLUOROSCOPY 0-60 MIN 40944 Pa tient Name: JAMAAL ROGERS : 1950; Age: 69 years y/o Male MR: [id number] Study: - XR FLUOROSCOPY 0-60 MIN 04/08/2020 5:32 PM Ordering Physician: Prasad Medina MD Clinical Indication: ; CYSTOSCOPY; CLOT RETENTION Comparison: None FINDINGS: Multiple spot fluoroscopic images from cystoscopy and clot evacuation are submitted for evaluation. Fluoroscopy Time: 35 sec ReferenceAir Kerma: 18.9 mGy IMPRESSION: Please refer to the official procedure report for complete assessment. SL: [id number] at 0714 Reported and signed by: Tello Rondon M.D. CC: Nanda Culver MD; Prasad Medina MD Technologist: Lary Castillo RT(R) Trnscrd Date/Time/By: 04/09/2020 (713) : By: [email or web address] Orig Print D/T: S: 04/09/2020 (716) PAGE 1 Signed ReportBASIC METABOLIC [id number] 04:51:00 Test Item Value Reference Range Interpretation Comments SODIUM (test code = NA) 134 mEq/L 134-147 N POTASSIUM (test code = 5.3 mEq/L 3.4-5.0 H K) CHLORIDE (test code = 101 mEq/L 100-108 N CL) CARBON DIOXIDE (test 18 mEq/L 21-33 L code = CO2) ANION GAP (test code = 20 0-20 N GAP) GLUCOSE (test code = 116 mg/dL 70-110 H GLU) BLOOD UREA NITROGEN 107 mg/dL 7-18 H (test code = BUN) GLOMERULAR FILTRATION 3.3 80-90 L Units of measure = RATE (test code = GFR) ml/mi n/1.73 m2 CREATININE (test code = 14.8 mg/dL 0.6-1.3 H CREAT) CALCIUM (test code = 7.2 mg/dL 8.0-10.5 L CA) CBC W/AUTO [id number] 04:37:00 Test Item Value Reference Range Interpretation Comments WHITE BLOOD CELL (test 10.7 x10 3/uL 4.5-11.0 N code = WBC) RED BLOOD CELL (test 2.12 x10 6/uL 4.00-5.60 L code = RBC) HEMOGLOBIN (test code 6.0 g/dL 12.5-16.9 LL Critic al result = HGB) called to DARYL LANDA. WC1 at 0436 04/09/20Nstaci estrella back resut and tech confirmed it's correct? Y ES HEMATOCRIT (test code 18.4 % 37.5-50.7 L = HCT) MEAN CELL VOLUME (test 86.8 fL 81.0-99.0 N code = MCV) MEAN CELL HGB (test 28.3 pg 27.0-33.0 N code = MCH) MEAN CELL HGB 32.6 g/dL 33.0-37.0 L CONCETRATION (test code = MCHC) RED CELL DISTRIBUTION 15.6 % 11.5-14.5 H WIDTH CV (test code = RDW) RED CELL DISTRIBUTION 49.1 fL 37.0-54.0 N WIDTH SD (test code = RDW-SD) PLATELET COUNT (test 117 x10 3/uL 150-400 L code = PLT) MEAN PLATELET VOLUME 11.0 fL 7.0-9.0 H (test code = MPV) NEUTROPHIL % (test 79.0 % 56.0-77.0 H code = NT%) IMMATURE GRANULOCYTE % 0.5 % 0.0-2.0 N (test code = IG%) LYMPHOCYTE % (test 12.1 % 14.0-32.0 L code = LY%) MONOCYTE % (test code 8.3 % 4.8-9.0 N = MO%) EOSINOPHIL % (test 0.0 % 0.3-3.7 L code = EO%) BASOPHIL % (test code 0.1 % 0.0-2.0 N = BA%) NUCLEATED RBC % (test 0.0 % 0-0 N code = NRBC%) NEUTROPHIL # (test 8.45 x10 3/uL 2.0-7.6 H code = NT#) IMMATURE GRANULOCYTE # 0.05 x10 3/uL 0.00-0.03 H (test code = IG#) LYMPHOCYTE # (test 1.29 x10 3/uL 1.0-3.8 N code = LY#) MONOCYTE # (test code 0.89 x10 3/uL 0.1-0.8 H = MO#) EOSINOPHIL # (test 0.00 x10 3/uL 0.0-0.2 N code = EO#) BASOPHIL # (test code 0.01 x10 3/uL 0.0-0.2 N = BA#) NUCLEATED RBC # (test 0.00 x10 3/uL 0.0-0.1 N code = NRBC#) MANUAL DIFF REQUIRED NO (test code = MDIFF) HGB [id number] 20:41:00 Test Item Value Reference Range Interpretation Comments HEMOGLOBIN (test code = 6.2 g/dL 12.5-16.9 LL Crit ical result called HGB) to NESS LeLAB.PTP at 20 41 04/08/20Nstaci estrella back resut and tech confirmed it's correct? Y HEMATOCRIT (test code = 18.7 % 37.5-50.7 L HCT) COMMENTS: check after patient finished with 2nd unit of bloodCOVID 19 Asymptomatic IH [id number] 13:08:00 Test Item Value Reference Range Interpretation Comments COVID 19 Asymptomatic Negative Negative A nega tive result is IH AG (test code = presumpti ve and should COVNONPUIAG) be confirmedwit h an FDA authorized mole cular assay, if leah queen forpatient michael astorga.A positive result does not rule out co-inf ections withother patho gens.This test detects moriah th viable (live) and non-viable,SARS -CoV, and SARS-CoV-2. Leanna t performance dep ends on theamount of vi joby (antigen) in th e sample.This leanna t has not been FDA cleare d or approved; the t est hasbeen authori zed by FDA under an Em ergency Use Authorizati on(EUA) for use by labo ratories certified under the CLIA thatmeet the requirements to perform moderate, high or waivedcomplexit y tests. COMMENTS: If not done this admission- US RETRO [id number] 12:12:00 [facility] : 1950 Sex: M Name: JAMAAL ROGERS [facility] : 1950 Age/S: 69 / M [address] [place] [address] Unit #: [id number] Loc: [place] [address] Phys: Art Orozco MD Acct: [id number] Dis Date: Status: ADM IN PHONE #: [phone] Exam Date: 04/08/2020 1004 FAX #: [phone] Reason: arf EXAMS: CPT CODE: [id number] US RETRO LTD 75918 Procedure: Renal Ultrasound. Clinical Indication: Acute renal failure, bleeding from catheter. Comparison: CT scan of the abdomen and pelvis 04/08/2020. TECHNIQUE: Multiple longitudinal and transverse real time sonographic images of the kidneys and urinary bladder are obtained. FINDINGS: KIDNEYS: The rightkidney measures 13.5 cm. The left kidney measures 13 cm. The kidneys are normal in size, shape, contour, and position. The cortices are normal in thickness and the corticomedullary differentiation is maintained. There is a partially exophytic 5 x 5.4 x 4 cm simple cyst arising from the inferior pole of the right kidney with a 3.1 x 2.8 x 2.8 cm simple cyst arising from the lateral inferior pole of the left kidney. There is severe right hydronephrosis and moderate to severe left hydronephrosis. BLADDER: The bladder is distended with an estimated volume of 2093 mL. There is heterogeneous dominantly hypoechoic material most pronounced at the base of the bladder. The visualized portions of the abdominal aorta, IVC and proximal common iliac arteries are within normal limits. IMPRESSION: 1. Bilateral renal simple cysts. 2. Moderate to severe bilateral hydronephrosis. 3. Distended urinary bladder with heterogeneous material at the base of the bladder possibly representing blood clots/intraluminal hematoma. SL: OCO-H PAGE 1 Signed Report (CONTINUED) Name: JAMAAL ROGERS [facility] : 1950 Age/S: 69 / M [address] [place] [address] Blvd Unit #: [id number] Loc: [place] [address] Phys: Art Orozco MD Acct: [id number] Dis Date: Status: ADM IN PHONE #: [phone] Exam Date: 04/08/2020 1005 FAX #: [phone] Reason: arf EXAMS: CPT CODE: [id number] [facility] [address] <Continued> at 1212 Reported and signed by: Ritchie Aguilar M.D. CC: Nanda Culver MD; Art Orozco MD Technologist: Seferino Berry RDMS() Trnscb Date/Time: 04/08/2020 (1212) Gena Orig Print D/T: S: 04/08/2020 (1215) Probe:PAGE 2 Signed Report- CT ABD PELVIS W/O CONT 2020-04-08 10:54:00 [facility]: JAMAAL ROGERS : 1950 Sex: M Name: JAMAAL ROGERS [facility] [place] : 1950 Age/S: 69 / M [address] [place] [address] Blvd Unit #: [id number] Loc: [facility] [place]H [address] Phys: Prasad Medina MD Acct: [id number] Dis Date: Status: ADM IN PHONE #: [phone] Exam Date: 04/08/2020820 FAX #: [phone] Reason: hematuria EXAMS: CPT CODE: [id number] CT ABD PELVIS W/O CONT 50978 STUDY: - CT ABD PELVIS W/O CONT 04/08/2020 5:27 AM Ordering Physician: Prasad Medina MD Patient Name: JAMAAL ROGERS MR: [id number] : 1950; Age: 69 years y/o Male Clinical Indication: hematuria Comparison: None TECHNIQUE: Multiple contiguous noncontrast transaxial CT images were obtained through the abdomen and pel vis. Sagittal and coronal reformatted images were prepared. DOSE: CT imaging performed at this location utilizes radiation dose optimization technique which includes one or more of the followin) Automated exposure control; 2) Adjustment of the mA and/or kV according to patient's size; 3) Use of iterative reconstruction techniques. DLP (mGy- cm): 960 CT ABDOMEN AND PELVIS WITHOUT CONTRAST: VISUALIZED LUNG BASES: 1.2 cm nodule in the right middle lobe adjacent to the fissure (series 2 image 7). 0.9 cm right lower lobenodule (series 2 image 12). 0.7 cm left lower lobe nodule (series 2 image 6). Filling of multiple bronchi in the bilateral lower lobes, which represent mucoceles. BOWEL: Normal nonobstructed bowel gas pattern. APPENDIX: Normal appendix without inflammatory change. STOMACH: Normal for degree of distention. PERITONEUM AND MESENTERY: Free Air: No evidence of pneumoperitoneum. Free Fluid: No evidence of significant free fluid, loculated fluid, peripherally enhancing abscess, or hemorrhage. Mesenteric and peritoneal fat: Normal without focal lesion or inflammation. LYMPH NODES: No lymphadenopathy or mass. VASCULAR: Abdominal Aorta: Normal caliber abdominal aorta without aneurysm or dissection. PAGE 1 Signed Report (CONTINUED) Name: JAMAAL ROGERS [facility] : 1950 Age/S: 69 / M [address] [place] [address] Blvd Unit #: [id number] Loc: [place] [address] Phys: Prasad Medina MD Acct: [id number] Dis Date: Status: ADM IN PHONE #: [phone] Exam Date: 04/08/2020820 FAX #: [phone] Reason: hematuria EXAMS: CPT CODE: [id number] CT ABD PELVIS W/O CONT 75026 <Continued> IVC: Normal caliber nonenhanced. ABDOMINAL ORGANS: Liver: Normal nonenhanced without discrete lesion. Gallbladder: Normal appearing gallbladder without calcified gallstones, gallbladder wall thickening, or pericholecystic inflammation. Biliary Tree: Normal without dilatation. Kidneys: Severe right and moderate to severe left hydronephrosis. Hypodense left renal cysts. Perirenal fat stranding is noted. Adrenal Glands: Normal nonenhanced without discrete lesion. Pancreas: Normal nonenhanced without discrete lesion. Spleen: Normal nonenhanced without discrete lesion. PELVIC ORGANS: Urinary bladder: Severely distended urinary bladder with large intraluminal hemorrhage measuring 16.8 x 9.4 x 13.9 cm (CC X AP Xtransverse). Intraluminal air is seen within urinary bladder and within the hemorrhage. Reproductive organs: No organomegaly or mass lesions. A Greco catheter balloon is seeninflated within the penile urethra. SOFT TISSUES: Presacral edema is seen. Fat stranding and edema seen in the anterior abdominal and pelvic nunes. OSSEOUS STRUCTURES: Mild to moderate spinal degenerative change without acute fracture, dislocation, or suspicious focal osseous lesion. Compression deformity with sclerotic changes at the L2 vertebralbody with 40% loss of height centrally. Nonspecific sclerotic changes within the pelvis involving the right greater than left ilium and sacrum PAGE 2 Signed Report (CONTINUED) Name: JAMAAL ROGERSHCmelanie Caldera : 1950 Age/S: 69 / M [address] [place] [address] BlvdUnit #: [id number] Loc: [place] [address] Phys: Prasad Medina MD Acct: [id number] Dis Date: Status:ADM IN PHONE #: [phone] Exam Date: 04/08/2020820 FAX #: [phone] Reason: hematuria EXAMS: CPT CODE: [id number] CT ABD PELVIS W/O CONT 82305 <Continued> IMPRESSION: 1. Large intravesicular hematoma measuring 16.8 x 9.4 x 13.9 cm, causing severe right and moderate- severe left hydroureteronephrosis. 2. The Greco catheter balloon is inflated within the penile urethra. 3. Scattered pulmonary nodules measuring up to 1.2 cm. Mucous plugging also seen in the bilateral lower lobes. Metastatic disease is not excluded. Recommend CT chest with contrast for further evaluation. 4. Nonspecific sclerotic changes within the sacrum and pelvis. This may be secondary to an underlying metabolic condition, but metastasis is not completely excluded. Consider bone scan for further evaluation. 5. Age indeterminate, chronic appearing L2 vertebral body compression fracture with 40% loss of height centrally Acute findings were discussed with nurse Sharla at10:53 AM 04/08/2020 by telephone. SL: [id number] at 1055 Reported and signed by: Tello Rondon M.D. CC: Nanda Culver MD; Prasad Medina MD Technologist:Jamshid Stanton RT(R)(CT) CTDI: DLP: Trnscb Date/Time: 04/08/2020 (6576) [id number] Orig Print D/T: S: 04/08/2020 (7598) PAGE 3 Signed ReportCBC W/AUTO [id number] 08:00:00 Test Item Value Reference Range Interpretation Comments WHITE BLOOD CELL (test 14.2 x10 3/uL 4.5-11.0 H code = WBC) RED BLOOD CELL (test 1.97 x10 6/uL 4.00-5.60 L code = RBC) HEMOGLOBIN (test code 5.7 g/dL 12.5-16.9 LL Critic al result = HGB) called to Patel CORNELL.PJ at 075 9 04/08/20Nurse r ead back resut and tech confirmed it's correct? Y ES HEMATOCRIT (test code 17.0 % 37.5-50.7 LL Critic al result = HCT) called to Patel CORNELLPJ at 075 9 04/08/20Nurse r ead back result and tech confirmed it's correct? Y ES MEAN CELL VOLUME (test 86.3 fL 81.0-99.0 N code = MCV) MEAN CELL HGB (test 28.9 pg 27.0-33.0 N code = MCH) MEAN CELL HGB 33.5 g/dL 33.0-37.0 N CONCETRATION (test code = MCHC) RED CELL DISTRIBUTION 17.0 % 11.5-14.5 H WIDTH CV (test code = RDW) RED CELL DISTRIBUTION 53.0 fL 37.0-54.0 N WIDTH SD (test code = RDW-SD) PLATELET COUNT (test 147 x10 3/uL 150-400 L code = PLT) MEAN PLATELET VOLUME 11.2 fL 7.0-9.0 H (test code = MPV) NEUTROPHIL % (test 69.5 % 56.0-77.0 N code = NT%) IMMATURE GRANULOCYTE % 0.5 % 0.0-2.0 N (test code = IG%) LYMPHOCYTE % (test 14.1 % 14.0-32.0 N code = LY%) MONOCYTE % (test code 15.8 % 4.8-9.0 H = MO%) EOSINOPHIL % (test 0.0 % 0.3-3.7 L code = EO%) BASOPHIL % (test code 0.1 % 0.0-2.0 N = BA%) NUCLEATED RBC % (test 0.0 % 0-0 N code = NRBC%) NEUTROPHIL # (test 9.89 x10 3/uL 2.0-7.6 H code = NT#) IMMATURE GRANULOCYTE # 0.07 x10 3/uL 0.00-0.03 H (test code = IG#) LYMPHOCYTE # (test 2.00 x10 3/uL 1.0-3.8 N code = LY#) MONOCYTE # (test code 2.24 x10 3/uL 0.1-0.8 H = MO#) EOSINOPHIL # (test 0.00 x10 3/uL 0.0-0.2 N code = EO#) BASOPHIL # (test code 0.01 x10 3/uL 0.0-0.2 N = BA#) NUCLEATED RBC # (test 0.00 x10 3/uL 0.0-0.1 N code = NRBC#) MANUAL DIFF REQUIRED NO (test code = MDIFF) BASIC METABOLIC [id number] 07:57:00 Test Item Value Reference Range Interpretation Comments SODIUM (test code = NA) 135 mEq/L 134-147 N POTASSIUM (test code = 5.1 mEq/L 3.4-5.0 H K) CHLORIDE (test code = 101 mEq/L 100-108 N CL) CARBON DIOXIDE (test 19 mEq/L 21-33 L code = CO2) ANION GAP (test code = 20 0-20 N GAP) GLUCOSE (test code = 112 mg/dL 70-110 H GLU) BLOOD UREA NITROGEN 80 mg/dL 7-18 H (test code = BUN) GLOMERULAR FILTRATION 3.6 80-90 L Units of measure = RATE (test code = GFR) ml/mi n/1.73 m2 CREATININE (test code = 13.9 mg/dL 0.6-1.3 H CREAT) CALCIUM (test code = 8.8 mg/dL 8.0-10.5 N CA) [id number] 07:57:00 Test Item Value Reference Range Interpretation Comments MAGNESIUM (test code = MAG) 2.16 mg/dL 1.80-2.40 N ACUTE HEPATITIS [id number] 15:41:00 Test Item Value Reference Range Interpretation Comments AB HEPATITIS A IGM (test NON REACTIVE INDEX NON REACT. code = HAVMAB) AG HEPATITIS B SURFACE NON REACTIVE INDEX NonReactive (test code = HBSAG) AB HEPATITIS B CORE IGM NON REACTIVE INDEX NON REACT. (test code = HBCMAB) AB HEPATITIS C (test code NON REACTIVE INDEX NON REACT. = HCVAB) AB HEPATITIS B [id number] 15:41:00 Test Item Value Reference Range Interpretation Comments AB HEPATITIS B CORE (test code = HBCAB) - XR CHEST 1 [id number] 14:18:00 [facility] : 1950 Sex: M FAX: Nanda Culver MD [phone] [place]: St: ADM FAX: Smith Horton MD [phone] Name: JAMAAL ROGERS [facility] : 1950 Age/S: 69/M [address] [place] [address] Unit #: [id number] Loc: G.3354 [place] [address] Phys: Smith Estes MD Acct: [id number] Dis Date: Status: ADM IN PHONE #: [phone] Exam Date: 04/07/2020 [facility] FAX #: [phone] Reason: VERIFY CENTRAL LINE PLACEMENT EXAMS: CPT CODE: [id number] XR CHEST 1 V 43998 PROCEDURE: Chest Radiograph. Clinical Indication: Line placement, CHF, acute renal failure. Comparison: None. FINDINGS: The chest shows minimal bibasilar pulmonary opacities, left greater than right. The patient is rotated SRI LANKAN, limiting interpretation. A right IJ dialysis catheter is present with tip in the region of the cavoatrial junction. No pneumothorax. The heart size and pulmonary vasculature are normal.The trachea is midline. There are no clinically significant osseous abnormalities noted. IMPRESSION: 1. Bibasilar pulmonary opacities. 2. Right IJ dialysiscatheter placement. SL: OCO-H at 1418 Reported and signed by: Ritchie Aguilar M.D. CC: Nanda Culver MD; Smith Estes MD Technologist: RT Rogelio(R) Trnscrd Date/Time/By: 04/07/2020 (961) : By: DayTDO Orig Print D/T: S: 04/07/2020 (7173) PAGE 1 Signed ReportUA RFLX MICR CULT IF [id number] 09:45:00 Test Item Value Reference Range Interpretation Comments UA COLOR (test code = COLU) RED YEL/STRAW A UA APPEARANCE (test code = BLOODY CLEAR A APPU) UA GLUCOSE DIPSTICK (test NEGATIVE NEGATIVE code = DGLUU) UA BILIRUBIN DIPSTICK (test NEGATIVE NEGATIVE code = BILU) UA KETONE DIPSTICK (test 2+ NEGATIVE A code = KETU) UA SPECIFIC GRAVITY (test 1.010 1.005-1.030 N code = SGU) UA BLOOD DIPSTICK (test 4+ NEGATIVE A code = EMMY) UA PH DIPSTICK (test code = 7.0 5.0-7.0 N JACOB) UA PROTEIN DIPSTICK (test 4+ NEGATIVE A code = PROU) UA UROBILINIOGEN DIPSTICK 0.2 mg/dL 0.2-1.0 (test code = URO) UA NITRITE DIPSTICK (test NEGATIVE NEGATIVE code = NENA) UA LEUKOCYTE ESTERASE NEGATIVE NEGATIVE DIPSTICK (test code = LEUU) UA WBC (test code = WBCU) NONE SEEN WBC/HPF 0-3 UA RBC (test code = RBCU) >50 RBC/HPF 0-3 A UA WBC NO REFLEX (test code NONE SEEN WBC/HPF 0-3 = WBCUCL) UA BACTERIA (test code = 1+ /HPF NONE SEEN A BACU) UA SQUAMOUS CELLS (test NONE SEEN /HPF NONE SEEN code = SQU) Indication for culture: Temperature > 100.4 FSpecimen Description: INDWELLING CATH (GRECO)Cath Status: Under 72 hoursUA RFLX MICR CULT IF INDICATED 2020-04-07 09:32:00 Test Item Value Reference Range Interpretation Comments UA COLOR (test code = COLU) RED YEL/STRAW A UA APPEARANCE (test code = APPU) BLOODY CLEAR A UA GLUCOSE DIPSTICK (test code = NEGATIVE NEGATIVE DGLUU) UA BILIRUBIN DIPSTICK (test code = NEGATIVE NEGATIVE BILU) UA KETONE DIPSTICK (test code = 2+ NEGATIVE A KETU) UA SPECIFIC GRAVITY (test code = 1.010 1.005-1.030 N SGU) UA BLOOD DIPSTICK (test code = EMMY) 4+ NEGATIVE A UA PH DIPSTICK (test code = JACOB) 7.0 5.0-7.0 N UA PROTEIN DIPSTICK (test code = 4+ NEGATIVE A PROU) UA UROBILINIOGEN DIPSTICK (test 0.2 mg/dL 0.2-1.0 code = URO) UA NITRITE DIPSTICK (test code = NEGATIVE NEGATIVE NENA) UA LEUKOCYTE ESTERASE DIPSTICK NEGATIVE NEGATIVE (test code = LEUU) UA WBC (test code = WBCU) WBC/HPF 0-3 UA RBC (test code = RBCU) RBC/HPF 0-3 Indication for culture: Temperature > 100.4 FSpecimen Description: INDWELLING CATH (GRECO)Cath Status: Under 72 hoursCOMPREHENSIVE METABOLIC PANEL 2020-04-07 08:32:00 Test Item Value Reference Range Interpretation Comments SODIUM (test code = 132 mEq/L 134-147 L NA) POTASSIUM (test code = 6.3 mEq/L 3.4-5.0 HH Criti josette result K) called to Patel [email or web address] at 01 1504/07/20Nurse chika estrella back result and tech confirmed it's correct? Y CHLORIDE (test code = 104 mEq/L 100-108 N CL) CARBON DIOXIDE (test 12 mEq/L 21-33 L code = CO2) ANION GAP (test code = 22 0-20 H GAP) GLUCOSE (test code = 133 mg/dL 70-110 H GLU) BLOOD UREA NITROGEN 94 mg/dL 7-18 H (test code = BUN) GLOMERULAR FILTRATION 3.0 80-90 L Units of measure = RATE (test code = GFR) ml/mi n/1.73 m2 CREATININE (test code 16.1 mg/dL 0.6-1.3 H = CREAT) TOTAL PROTEIN (test 6.9 g/dL 6.4-8.2 N code = PROT) ALBUMIN (test code = 3.20 g/dL 3.4-5.0 L ALB) CALCIUM (test code = 9.1 mg/dL 8.0-10.5 N CA) BILIRUBIN TOTAL (test < 0.20 mg/dL 0.0-1.0 N code = BILT) SGOT/AST (test code = 22 IUnit/L 15-37 N AST) SGPT/ALT (test code = 8 IUnit/L 30-65 L ALT) ALKALINE PHOSPHATASE 110 IUnit/L 20-125 N TOTAL (test code = ALKP)
[2020-08-29 12:35] LABS: MPV 6.8 fL (7.6-11.3); RBC Red Blood Cell Count 2.05 M/uL (4.33-5.43)
[2020-08-29 12:41] LABS: Hematocrit 16.8 % (39.6-49.0); Protime INR 1.46
--- NOTE | 2020-08-29 12:46 | RAD REPORT ---
EXAM DESCRIPTION: Sherry Single View08/29/2020 12:12 pm CLINICAL HISTORY: Shortness of breath COMPARISON: none FINDINGS: Moderate bilateral pulmonary opacities. The heart is mildly to moderately enlarged. The aorta is tortuous/ectatic A central venous catheter is present IMPRESSION: Moderate bilateral pulmonary opacities may represent pulmonary edema or pneumonia
[2020-08-29 13:18] LABS: ALT/SGPT 7 U/L (12-78); AST/SGOT 28 U/L (15-37); Albumin 1.8 g/dL (3.4-5.0); Alkaline Phosphatase 286 U/L (45-117); BUN Blood Urea Nitrogen 32 mg/dL (7-18); Bicarbonate 27 mmol/L (21-32); Bilirubin Direct 0.2 mg/dL (0-0.2); Bilirubin Total 0.3 mg/dL (0.2-1.0); Glucose Level 100 mg/dL (74-106); NT PRO-BNP 5372 pg/mL (<125); Sodium Level 131 mmol/L (136-145); Troponin (Emerg Dept Use Only) < 0.02 ng/mL (0.0-0.045)
[2020-08-29 13:19] LABS: Potassium 2.8 mmol/L (3.5-5.1)
--- NOTE | 2020-08-29 13:26 | P.HP ---
Certification for Inpatient Patient admitted to: Observation With expected LOS: <2 Midnights Patient will require the following post-hospital care: None Practitioner: I am a practitioner with admitting privileges, knowledge of patient current condition, hospital course, and medical plan of care. 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 Patient had use bubble going to dialysis yesterday and halfway was contacted today for abnormal hemoglobin resolved. Patient she has never received blood transfusion in the past. He denies any hematochezia or hematuria. He has history of intermittent blood clots with his Menendez which usually resolved with irrigation. Last episode was over a month ago. He states he has been feeling progressively weak but denies any syncope or dizziness. He denies any previous colonoscopy or diagnosis of cancer. There is no personal family history of GI disorder. On admission is more repeat hemoglobin is still low at 5.5 and he has been preparing for blood transfusion. Chest x-ray shows mild bilateral pulmonary infiltrates worrisome for interstitial edema. Home medications list reviewed: No - Past Medical/Surgical History Has patient received pneumonia vaccine in the past: No Diabetic: No -: Hypertension -: History of CVA -: Right-sided hemipareses -: Urine retention -: CHF -: chest wall Perma-Cath - Family History Family History: Reviewed- Non-Contributory - Social History Smoking Status: Never smoker Smoking therapy provided: No Patient receptive to therapy: No Alcohol use: No CD- Drugs: No Caffeine use: No Place of Residence: [facility] Review of Systems General: Weakness, Malaise Eyes: Unremarkable ENT: Unremarkable Respiratory: Unremarkable Cardiovascular: Unremarkable Gastrointestinal: Unremarkable Genitourinary: As per HPI Musculoskeletal: Unremarkable Integumentary: Unremarkable Neurological: Weakness, Unremarkable Physical Examination - Physical Exam General: Alert, In no apparent distress, Oriented x3, Cooperative HEENT: Atraumatic, Normocephalic, PERRLA Neck: Supple, 2+ carotid pulse no bruit, JVD not distended Respiratory: Normal air movement, Crackles/rales (few) Cardiovascular: Normal pulses, Regular rate/rhythm, Normal S1 S2 Gastrointestinal: Normal bowel sounds, Soft and benign, Non-distended, W/out succussion splash Musculoskeletal: No clubbing, No swelling Integumentary: No rashes, No breakdown Neurological: Sensation intact, Cranial nerves 3-12 intact, Abnormal gait, Abnormal strength (right sided dec power ) Urinary: Dialysis catheter, Menendez catheter Rectal: Deferred - Studies Laboratory Data (last 24 hrs) 08/29/20 12:24: PT 16.8 H, INR 1.46 08/29/20 12:24: WBC 9.50, Hgb 5.5 L*, Hct 16.8 L*, Plt Count 395 08/29/20 12:24: Sodium 131 L, Potassium 2.8 L*, BUN 32 H, Creatinine 3.11 H, Glucose 100, Magnesium 2.0, Total Bilirubin 0.3, AST 28, ALT 7 L, Alkaline Phosphatase 286 H Imagings Data: Chest x-ray reviewed, bilateral interstitial edema noted Assessment and Plan - Problems (Diagnosis) (1) ESRD (end stage renal disease) on dialysis Current Visit: Yes Status: Acute (2) Hypokalemia Current Visit: Yes Status: Acute (3) Hypotension Current Visit: Yes Status: Acute (4) Chronic retention of urine Current Visit: Yes Status: Acute (5) Anemia Current Visit: Yes Status: Acute - Advance Directives Does patient have a Living Will: No Does patient have a Durable POA for Healthcare: No - Code Status/Comfort Care Code Status Assessed: Yes Code Status: Full Code Physician Review: Patient Assessed, Agree with Above Assessment and Plan Physician Review Additional Text: ESRD Anemia-possibly due to blood loss vessels chronic kidney disease History of CHF History of CVA Chronic urine retention-inch wheat indwelling Menendez Hypokalemia Hypotension-due to blood loss Plan -will try to obtain full records from PCP office halfway, recalls no Menendez available at this time -will transfuse 2 units PRBC With dose Lasix 40 mg x1 now and repeat does be 2 units to avoid worsening fluid overload given mild pulmonary edema and there although asymptomatic at this time. -will consult Nephrology to resume care No urgency to dialysis at this time since hypertension and hypokalemia Will replete potassium with 40 mEq x1 now and then follow post PRBC If no history of prostate cancer, consider use Epogen with dialysis obtain home medication list Initiate regular diet, since low-potassium no need for renal diet -monitor vitals -hold heparin anticoagulation for now, will do SCDs -no need for guaiac test since no benefit of fecal occult blood testing in inpatient setting Advanced directive discussed patient wishes to be full code. We keep Overnight and monitor If stable H and H greater than 8 in am . can consider discharge Time Spent Managing Pts Care (In Minutes): 65
[2020-08-29] MEDS ORDERED: MORPHINE 2 MG/ML SYR IV PRN (13:30)
[2020-08-29] MEDS ORDERED: ONDANSETRON 4 MG/2 ML VIAL IV PRN (13:30)
[2020-08-29 13:34] LABS: Anisocytosis SLIGHT; Blood Morphology Comment NOTED (NOT SEEN); Hypochromasia 1+; Platelet Estimate ADEQ
[2020-08-29 13:35] LABS: Poikilocytosis SLIGHT; Target Cells FEW
[2020-08-29] MEDS ORDERED: NA CHLORIDE 0.9% 250 ML IV SCH (14:00)
[2020-08-29] MEDS ORDERED: FUROSEMIDE 40 MG/4 ML VIAL IV ONE ×2 (14:00→19:33)
--- NOTE | 2020-08-29 15:26 | EDPHYS ---
Physician Documentation [facility] Name: Eliezer Menjivar Age: 70 yrs Sex: Male : 1950 Arrival Date: 08/29/2020 Time: 10:50 Bed 15 Private MD: ED Physician Seferino Sun HPI: 08/30 15:46 This 70 yrs old Black Male presents to ER via EMS with complaints of Abnormal Lab kdr Results - low Hgb. 15:46 The patient has no c/o but had a recent blood draw at the [facility] and he was called and kdr informed that his blood count was low and to come to the ED for a transfusion.. Onset: The symptoms/episode began/occurred. Severity of symptoms: At their worst the symptoms were mild in the emergency department the symptoms are unchanged. The patient has not experienced similar symptoms in the past. The patient has been recently seen by a physician: the patient's primary care provider. Historical: - Allergies: 08/29 10:56 No Known Allergies; ss - PMHx: 10:56 CHF; CVA; Prostate CA; Hyperlipidemia; R sided paralysis following CVA; Hypertension; ss Dialysis; ESRD; - Immunization history:: Adult Immunizations up to date. - Social history:: Smoking status: Patient denies any tobacco usage or history of. ROS: 08/30 15:46 Constitutional: Negative for fever, chills, and weight loss, Eyes: Negative for injury, kdr pain, redness, and discharge, ENT: Negative for injury, pain, and discharge, Neck: Negative for injury, pain, and swelling, Cardiovascular: Negative for chest pain, palpitations, and edema, Respiratory: Negative for shortness of breath, cough, wheezing, and pleuritic chest pain, Abdomen/GI: Negative for abdominal pain, nausea, vomiting, diarrhea, and constipation, Back: Negative for injury and pain, : Negative for injury, bleeding, discharge, and swelling, MS/Extremity: Negative for injury and deformity, Skin: Negative for injury, rash, and discoloration, Neuro: Negative for headache, weakness, numbness, tingling, and seizure activity. Psych: Negative for depression, anxiety, suicide ideation, homicidal ideation, and hallucinations, Allergy/Immunology: Negative for hives, rash, and allergies, Endocrine: Negative for neck swelling, polydipsia, polyuria, polyphagia, and marked weight changes, Hematologic/Lymphatic: Negative for swollen nodes, abnormal bleeding, and unusual bruising. Exam: 08/29 14:45 ECG was reviewed by the Attending Physician. kdr 08/30 15:46 Constitutional: This is a well developed, well nourished patient who is awake, alert, kdr and in no acute distress. Head/Face: Normocephalic, atraumatic. Eyes: Pupils equal round and reactive to light, extra-ocular motions intact. Lids and lashes normal. Conjunctiva and sclera are non-icteric and not injected. Cornea within normal limits. Periorbital areas with no swelling, redness, or edema. Neck: Trachea midline, no thyromegaly or masses palpated, and no cervical lymphadenopathy. Supple, full range of motion without nuchal rigidity, or vertebral point tenderness. No Meningismus. Chest/axilla: Normal chest wall appearance and motion. Nontender with no deformity. No lesions are appreciated. Cardiovascular: Regular rate and rhythm with a normal S1 and S2. No gallops, murmurs, or rubs. Normal PMI, no JVD. No pulse deficits. Respiratory: Lungs have equal breath sounds bilaterally, clear to auscultation and percussion. No rales, rhonchi or wheezes noted. No increased work of breathing, no retractions or nasal flaring. Abdomen/GI: Soft, non-tender, with normal bowel sounds. No distension or tympany. No guarding or rebound. No evidence of tenderness throughout. Back: No spinal tenderness. No costovertebral tenderness. Full range of motion. Skin: Warm, dry with normal turgor. Normal color with no rashes, no lesions, and no evidence of cellulitis. MS/ Extremity: Pulses equal, no cyanosis. Neurovascular intact. Full, normal range of motion. Neuro: Awake and alert, GCS 15, oriented to person, place, time, and situation. Cranial nerves II-XII grossly intact. Motor strength 5/5 in all extremities. Sensory grossly intact. Cerebellar exam normal. Normal gait. Psych: Awake, alert, with orientation to person, place and time. Behavior, mood, and affect are within normal limits. Vital Signs: 08/29 10:50 BP 103 / 69; Pulse 86; Resp 16; Temp 98.6(O); Pulse Ox 100% on R/A; Weight 77.11 kg; ss Pain 0/10; 12:31 BP 106 / 66; Pulse 74; Resp 15; Pulse Ox 100% ; 7 13:52 BP 101 / 60; Pulse 74; Resp 16; Pulse Ox 100% ; 5 15:11 BP 93 / 57; Pulse 69; Resp 16; Pulse Ox 100% on R/A; 5 17:25 BP 92 / 58; Pulse 71; Resp 16; Pulse Ox 99% on R/A; bw 17:33 BP 96 / 53; Pulse 74; Resp 18; Temp 98.7(TE); Pulse Ox 100% on R/A; 5 MDM: 15:26 Patient medically screened. [facility] 08/30 15:46 Data reviewed: vital signs, nurses notes, lab test result(s). Counseling: I had a kdr detailed discussion with the patient and/or guardian regarding: the historical points, exam findings, and any diagnostic results supporting the discharge/admit diagnosis, lab results, the need for outpatient follow up. 08/29 11:52 Order name: Basic Metabolic Panel [facility] 08/29 11:52 Order name: CBC with Diff [facility] 08/29 11:52 Order name: LFT's [facility] 08/29 11:52 Order name: Magnesium; Complete Time: 16: [facility] 08/29 11:52 Order name: NT PRO-BNP; Complete Time: 16: [facility] 08/29 11:52 Order name: PT-INR; Complete Time: 16: [facility] 08/29 11:52 Order name: Troponin (emerg Dept Use Only); Complete Time: 16: [facility] 08/29 11:53 Order name: Basic Metabolic Panel; Complete Time: 16: [facility] 08/29 11:53 Order name: CBC with Automated Diff; Complete Time: 16: [facility] 08/29 11:53 Order name: Liver (Hepatic) Function; Complete Time: 16: [facility] 08/29 12:43 Order name: Manual Differential; Complete Time: 16: [facility] 08/29 13:02 Order name: PRBC [facility] 08/29 13:03 Order name: Packed RBC Leukored [facility] 08/29 11:52 Order name: XRAY Chest (1 view); Complete Time: 16: [facility] 08/29 11:52 Order name: EKG; Complete Time: 11:53 7 08/29 13:03 Order name: ABO/RH typing EDMS 08/29 13:03 Order name: Antibody Screen EDMS 08/29 13:05 Order name: Bb Add On bd 08/29 13:35 Order name: CONS Physician Consult EDMS 08/29 13:35 Order name: Regular EDMS 08/29 13:35 Order name: EKG Electrocardiogram EDMS 08/29 13:35 Order name: EKG Electrocardiogram EDMS 08/29 13:35 Order name: CBC with Automated Diff EDMS 08/29 13:35 Order name: CBC with Automated Diff EDMS 08/29 13:48 Order name: Ferritin EDMS 08/29 13:48 Order name: Transferrin Sat/Iron Binding EDMS 08/29 14:01 Order name: ABO/RH no charge; Complete Time: 16:01 EDMS 08/29 14:47 Order name: COVID-19 : Document "Date of Symptom Onset" if Symptomatic. iw 08/29 17:04 Order name: SARS-COV-2 RT PCR EDWA 08/29 11:52 Order name: Cardiac monitoring; Complete Time: 12:28 7 08/29 11:52 Order name: EKG - Nurse/Tech; Complete Time: 12:28 [facility] 08/29 11:52 Order name: IV Saline Lock; Complete Time: 12:27 [facility] 08/29 11:52 Order name: Labs collected and sent; Complete Time: 12:27 7 08/29 11:52 Order name: O2 Per Protocol; Complete Time: 12:27 [facility] 08/29 11:52 Order name: O2 Sat Monitoring; Complete Time: 12:27 [facility] 08/29 12:43 Order name: Labs - recollect needed: recollect T\\T\\S; Complete Time: 12:58 ss 08/29 13:35 Order name: EKG Electrocardiogram EDMS 08/29 13:35 Order name: EKG Electrocardiogram EDMS 08/29 13:35 Order name: EKG Electrocardiogram EDMS 08/29 13:35 Order name: EKG Electrocardiogram EDMS 08/29 13:35 Order name: EKG Electrocardiogram EDMS 08/29 13:35 Order name: EKG Electrocardiogram EDMS 08/29 13:35 Order name: EKG Electrocardiogram EDMS 08/29 13:35 Order name: EKG Electrocardiogram EDMS 08/29 13:35 Order name: EKG Electrocardiogram [facility] EC/14 14:45 Rate is 78 beats/min. Rhythm is regular, Sinus Rhythm with No ectopy. QRS [place] is kdr Normal. VT interval is normal. QRS interval is normal. QT interval is normal. Clinical impression: NSR w/ Non-specific ST/T Changes. Administered Medications: No medications were administered Disposition: 08/29/20 15:26 Hospitalization ordered by Petra Song for Inpatient Admission. Preliminary diagnosis are Anemia, unspecified, Rectal Bleeding. - Bed requested for Telemetry/MedSurg (observation). - Status is Inpatient Admission. bw - Condition is Fair. - Problem is new. - Symptoms are unchanged. Signatures: Dispatcher [employer] [facility] Melita Jones, RN RN dw Seferino Sun MD MD kdr Deonna Vuong RN RN ss Armaan Morse, INSOLE LIP TURNER-C INSOLE LIP TURNER-Cla1 Luh Fernandez RN RN jl7 Anayeli Bryson RN RN bw Corrections: (The following items were deleted from the chart) 13:06 11:53 TYPE AND SCREEN+BB.LAB.BRZ ordered. [facility] 17:11 15:26 Hospitalization Ordered by Petra Song MD for Inpatient Admission. Preliminary diagnosis is Anemia, unspecified; Rectal Bleeding. Bed requested for Telemetry/MedSurg (observation). Status is Inpatient Admission. Condition is Fair. Problem is new. Symptoms are unchanged. kdr 18:16 17:11 08/29/2020 15:26 Hospitalization Ordered by Petra Song MD for Inpatient bw Admission. Preliminary diagnosis is Anemia, unspecified; Rectal Bleeding. Bed requested for Telemetry/MedSurg (observation). Status is Inpatient Admission. Condition is Fair. Problem is new. Symptoms are unchanged. dw
--- NOTE | 2020-08-29 15:26 | ER ---
Nurse's Notes [facility] Name: Eliezer Menjivar Age: 70 yrs Sex: Male : 1950 Arrival Date: 08/29/2020 Time: 10:50 Bed 15 Private MD: Diagnosis: Anemia, unspecified;Rectal Bleeding Presentation: 08/29 10:50 Chief complaint: EMS states: low Hgb this morning 5.7. Pt c/o fatigue over the past few ss days that seems to be getting worse. Coronavirus screen: Client denies travel out of the [place] in the last 14 days. Ebola Screen: Patient denies exposure to infectious person. Patient denies travel to an Ebola-affected area in the 21 days before illness onset. Initial Sepsis Screen: Does the patient meet any 2 criteria? No. Patient's initial sepsis screen is negative. Does the patient have a suspected source of infection? No. Patient's initial sepsis screen is negative. Risk Assessment: Do you want to hurt yourself or someone else? Patient reports no desire to harm self or others. Onset of symptoms is unknown. 10:50 Method Of Arrival: EMS: [facility] 10:50 Acuity: REYNALDO 3 ss 10:57 Note Pt is from [facility]. Triage Assessment: 17:25 General: Appears in no apparent distress. Behavior is calm, cooperative, appropriate bw for age. Historical: - Allergies: 10:56 No Known Allergies; ss - PMHx: 10:56 CHF; CVA; Prostate CA; Hyperlipidemia; R sided paralysis following CVA; Hypertension; ss Dialysis; ESRD; - Immunization history:: Adult Immunizations up to date. - Social history:: Smoking status: Patient denies any tobacco usage or history of. Screenin:56 Abuse screen: Denies threats or abuse. Nutritional screening: No deficits noted. bw Tuberculosis screening: No symptoms or risk factors identified. Fall Risk None identified. Assessment: 10:56 Pain: Complains of pain in generalized weakness. Neuro: No deficits noted. bw Cardiovascular: No deficits noted. Respiratory: No deficits noted. GI: Parent/caregiver reports the patient having low hemoglobin. GI: No signs and/or symptoms were reported involving the gastrointestinal system. : No deficits noted. No signs and/or symptoms were reported regarding the genitourinary system. 11:50 Reassessment: Pt laying in bed, A\T\O x 4, denies pain. ERD notified of CC, VO to start jl7 cardiac workup and T\T\S. 14:01 Reassessment: Patient appears in no apparent distress at this time. Patient and/or bw family updated on plan of care and expected duration. Pain level reassessed. Patient is alert, oriented x 3, equal unlabored respirations, skin warm/dry/pink. 16:07 Reassessment: Patient appears in no apparent distress at this time. Patient and/or bw family updated on plan of care and expected duration. Pain level reassessed. Patient is alert, oriented x 3, equal unlabored respirations, skin warm/dry/pink. 17:25 Reassessment: Patient appears in no apparent distress at this time. Patient and/or bw family updated on plan of care and expected duration. Pain level reassessed. Patient is alert, oriented x 3, equal unlabored respirations, skin warm/dry/pink. Vital Signs: 10:50 BP 103 / 69; Pulse 86; Resp 16; Temp 98.6(O); Pulse Ox 100% on R/A; Weight 77.11 kg; ss Pain 0/10; 12:31 BP 106 / 66; Pulse 74; Resp 15; Pulse Ox 100% ; jl7 13:52 BP 101 / 60; Pulse 74; Resp 16; Pulse Ox 100% ; mh5 15:11 BP 93 / 57; Pulse 69; Resp 16; Pulse Ox 100% on R/A; mh5 17:25 BP 92 / 58; Pulse 71; Resp 16; Pulse Ox 99% on R/A; bw 17:33 BP 96 / 53; Pulse 74; Resp 18; Temp 98.7(TE); Pulse Ox 100% on R/A; mh5 ED Course: 10:50 Patient arrived in ED. ss 10:50 Patient has correct armband on for positive identification. Placed in gown. Bed in low mh5 position. Call light in reach. Side rails up X2. Warm blanket given. mine supervisor on. Pulse ox on. NIBP on. 10:52 Triage completed. ss 10:55 Anayeli Bryson, RN is Primary Nurse. bw 10:56 Arm band placed on right wrist. ss 10:56 No provider procedures requiring assistance completed. bw 11:24 Seferino Sun MD is Attending Physician. kdr 12:12 XRAY Chest (1 view) In Process Unspecified. EDMS 12:28 Initial lab(s) drawn, by me, sent to lab. T\T\S collected, blood band applied to patient. jl7 Inserted saline lock: 20 gauge in left forearm, using aseptic technique. Blood collected. 13:06 Lab(s) recollected, by me, sent to lab. T\T\S collected, blood band applied to patient. jl7 15:00 COVID swab sent to lab. 5 15:21 Petra Song MD is Hospitalizing Provider. kdr 16:08 Transferrin Sat/Iron Binding Sent. bw 16:08 Ferritin Sent. bw 16:08 CBC with Automated Diff Sent. bw 16:08 CBC with Automated Diff Sent. bw 17:26 Patient admitted, IV remains in place. bw 17:30 PRBC Sent. bw Administered Medications: No medications were administered Outcome: 15:26 Decision to Hospitalize by Provider. kdr 17:25 Admitted to Med/surg accompanied by tech. bw 17:25 Condition: stable 17:25 Discharge instructions given to patient. 18:16 Patient left the ED. bw Signatures: Dispatcher [employer] EDWA Seferino Sun MD MD [facility] Deonna Vuong, RN RN Nancie Styles [facility] Luh Fernandez RN RN [facility] Anayeli Bryson RN RN
[2020-08-29 16:10] LABS: Ferritin 1486.2 ng/mL (26-388)
[2020-08-29] MEDS ORDERED: POTASSIUM 25 MEQ EFFERV TAB PO ONE (18:00)
[2020-08-29 18:40] VITALS: BMI 22.0
[2020-08-29] MEDS ORDERED: TRAMADOL HCL 50 MG TAB PO PRN (20:52)
[2020-08-30 04:46] LABS: Absolute Lymphocytes (CBC) 2.1 K/uL (0.7-4.9); Basophils % 0.3 % (0-1.3); Lymphocytes % 20.4 % (15.3-44.8); RBC Red Blood Cell Count 2.48 M/uL (4.33-5.43)
[2020-08-30 05:01] LABS: AST/SGOT 21 U/L (15-37); Albumin 1.6 g/dL (3.4-5.0); Alkaline Phosphatase 262 U/L (45-117); BUN Blood Urea Nitrogen 38 mg/dL (7-18); Bicarbonate 26 mmol/L (21-32); Bilirubin Total 0.4 mg/dL (0.2-1.0); Glucose Level 78 mg/dL (74-106); Potassium 3.3 mmol/L (3.5-5.1); Protein, Total 5.4 g/dL (6.4-8.2); Sodium Level 132 mmol/L (136-145)
[2020-08-30 05:09] LABS: ALT/SGPT < 6 U/L (12-78)
--- NOTE | 2020-08-30 07:37 | EKG ---
Test Date: 2020-08-29 Test Time: 12:29:33 Thread Cutter: URMILA MEASUREMENT RESULTS: Intervals: Rate: 78 OR: QRSD: 90 QT: 408 QTc: 465 [place]: P: OR: QRS: 51 T: 40 INTERPRETIVE STATEMENTS: Accelerated Junctional rhythm Nonspecific T wave abnormality Prolonged QT Abnormal ECG No previous ECG available for comparison Electronically Signed On 08-30-20 07:34:46 CDT by Fabián Alarcon
[2020-08-30] MEDS ORDERED: NA CHLORIDE 0.9% 0 ML ONE (08:26)
[2020-08-30 08:31] LABS: Urine Appearance TURBID (Clear); Urine Bilirubin NEGATIVE (Negative); Urine Blood 3+ (Negative); Urine Color DK YELLOW (Yellow); Urine Glucose NEGATIVE (Negative); Urine Protein 3+ (Negative); Urine Specific Gravity 1.015 (1.005-1.030); Urine Urobilinogen 0.2 mg/dL (0.2-1.0)
[2020-08-30 08:40] LABS: Urine Bacteria >50 /HPF (NONE SEEN); Urine RBC >50 /HPF (NONE SEEN)
[2020-08-30] MEDS ORDERED: NA CHLORIDE 0.9% 500 ML ONE (08:56)
[2020-08-30] MEDS ORDERED: LIDOCAINE 1% MPF 5 ML VIAL ONE (09:23)
[2020-08-30] MEDS ORDERED: propofoL 200 MG/20 ML VIAL IV ONE (09:23)
[2020-08-30] MEDS ORDERED: SODIUM CHLORIDE 0.9% 10ML INJ IV PRN (09:58)
[2020-08-30] MEDS ORDERED: NA CHLORIDE 0.9% 250 ML IV SCH (11:19)
[2020-08-30] MEDS: PANTOPRAZOLE 40 MG INJ IVP SCH ×2 (11:50→21:00)
--- NOTE | 2020-08-30 12:09 | P.DS ---
Admission Date: 08/29/20 Discharge Date: 08/30/20 Primary Care Provider: shelter Disposition: TRANSFER TO INTERMEDIATE Discharge Condition: GOOD Reason for Admission: Weakness Consultations: Nephrology-Dr. Yang GI-Dr. Ware Procedures: COVID: Negative EGD: Severe esophagitis with ulcers. No bleeding noted. Kamla noted as well. Medical Problem List: Acute on chronic anemia secondary to severe esophagitis with ulcers complicated with candidiasis End-stage renal disease on hemodialysis Hypertension History of CVA with right-sided residual deficit Urinary retention with chronic Menendez catheter Chronic anticoagulation therapy Chronic pain Brief History of Present Illness: 70-year-old male past medical history of hypertension, prostate disorder, urine retention status post indwelling Menendez since the last 6 months, history of CVA with right-sided hemiparesis, ESRD on hemodialysis TTS since the last 6 months via right chest wall PermCath, CHF, chronic anticoagulation therapy. Patient is a resident of [facility] who was brought in from [place] today because of reported low H and H of 5.5. He denies any hematochezia or hematuria. He has history of intermittent blood clots with his Menendez which usually resolved with irrigation. Last episode was over a month ago. He states he has been feeling progressively weak but denies any syncope or dizziness. He denies any previous colonoscopy or diagnosis of cancer. There is no personal family history of GI disorder. On admission is more repeat hemoglobin is still low at 5.5 and he has been preparing for blood transfusion. Chest x-ray shows mild bilateral pulmonary infiltrates worrisome for interstitial edema. Patient was admitted for further evaluation and treatment. Hospital Course: Patient presented with abnormal lab. Patient found to have a hemoglobin of 5.5. Patient with acute on chronic anemia. Patient was admitted for further evaluation and treatment. Patient denied any significant coughing of blood, vomiting of blood or melena. Patient received 3 units of packed red blood cells with improvement of hemoglobin. Patient was seen and evaluated by GI. GI recommended EGD. EGD showed severe esophagitis with ulcers but no bleeding noted. This was complicated with candidiasis. At discharge patient will continue with Protonix 40 mg 1 pill twice daily and Diflucan 200 mg daily for 10 days. Recommend follow-up with GI in 2 to 4 weeks to follow-up his hospitalization. Patient may require repeat EGD in the future to follow resolution. Patient with end-stage renal disease on hemodialysis. Patient also with underlying CHF. Patient received dialysis during the course of his stay. Patient has done well. Patient will continue with dialysis as directed. Patient with history of CVA with right-sided residual weakness, hypertension, urinary retention with chronic Menendez catheter and chronic anticoagulation therapy. At discharge he will continue with his current medications of Eliquis 5 mg 1 pill twice daily, aspirin 81 mg daily, folic acid daily, midodrine as directed, Norvasc as directed, carvedilol as directed, Flomax 0.4 mg daily. May need to hold his blood pressure medication Norvasc and carvedilol if blood pressure less than 120 systolic. Recommend to monitor blood pressures daily. Further adjustment can be done by nephrology. Vital Signs/Physical Exam: Temp Pulse Resp BP Pulse Ox 98.1 F 67 16 103/60 96 08/30/20 09:48 08/30/20 09:48 08/30/20 09:48 08/30/20 09:48 08/30/20 04:00 General: Alert, In no apparent distress, Oriented x3, Cooperative HEENT: Atraumatic Neck: Supple Respiratory: Clear to auscultation bilaterally, Normal air movement Cardiovascular: Normal pulses, Regular rate/rhythm Gastrointestinal: Normal bowel sounds, Soft and benign, Non-distended, No masses, No rebound, No guarding Musculoskeletal: No erythema, No tenderness, No warmth Neurological: Normal speech, Normal affect Laboratory Data at Discharge: WBC 10.30 K/uL (4.3-10.9) 08/30/20 03:53 Hgb Cancelled 08/30/20 04:00 Hct Cancelled 08/30/20 04:00 Plt Count 358 K/uL (152-406) 08/30/20 03:53 PT 16.8 SECONDS (9.5-12.5) H 08/29/20 12:24 INR 1.46 08/29/20 12:24 Sodium 132 mmol/L (136-145) L 08/30/20 03:53 Potassium 3.3 mmol/L (3.5-5.1) L 08/30/20 03:53 BUN 38 mg/dL (7-18) H 08/30/20 03:53 Creatinine 3.48 mg/dL (0.55-1.3) H 08/30/20 03:53 Glucose 78 mg/dL (74-106) 08/30/20 03:53 Magnesium 2.0 mg/dL (1.8-2.4) 08/29/20 12:24 Total Bilirubin 0.4 mg/dL (0.2-1.0) 08/30/20 03:53 AST 21 U/L (15-37) 08/30/20 03:53 ALT < 6 U/L (12-78) L 08/30/20 03:53 Alkaline Phosphatase 262 U/L (45-117) H 08/30/20 03:53 Home Medications: Acetaminophen [Tylenol] 650 mg PO TID 08/29/20 Amino Acids/Protein Hydrolys [Pro-Stat Awc Liquid Packet] 30 ml PO DAILY 08/16 09/05 Amlodipine Besylate 5 mg PO SEECOM 08/29/20 Amlodipine Besylate 5 mg PO SEECOM 08/29/20 Apixaban [Eliquis] 5 mg PO BID 08/29/20 Aspirin 81 mg PO DAILY 08/29/20 Docusate [Colace Cap*] 100 mg PO DAILY 08/29/20 Ergocalciferol (Vitamin D2) [Vitamin D2] 50,000 unit PO Q7D 08/29/20 Folic Acid/Vit B Complex and C [Renal-Victorino Tablet] 0.8 mg PO DAILY 08/29/20 Lactulose 20 gm PO DAILY 08/29/20 Midodrine HCl 10 mg PO SEECOM 08/29/20 Mirtazapine [Remeron*] 15 mg PO BEDTIME 08/29/20 Oxybutynin Chloride [Ditropan Xl] 15 mg PO DAILY 08/29/20 Tamsulosin HCl [Flomax] 0.4 mg PO BEDTIME 08/29/20 Tramadol HCl [Ultram] 50 mg PO Q6HP PRN 08/29/20 carvediloL [Carvedilol] 6.25 mg PO SEECOM 08/29/20 carvediloL [Carvedilol] 6.25 mg PO SEECOM 08/29/20 Fluconazole [Diflucan] 200 mg PO DAILY #10 tablet 08/30/20 Pantoprazole [Protonix Tab] 40 mg PO BID #60 tab 08/30/20 New Medications: Fluconazole [Diflucan] 200 mg PO DAILY #10 tablet Pantoprazole [Protonix Tab] 40 mg PO BID #60 tab Physician Discharge Instructions: Patient presented with abnormal lab. Patient found to have a hemoglobin of 5.5. Patient with acute on chronic anemia. Patient was admitted for further evaluation and treatment. Patient denied any significant coughing of blood, vomiting of blood or melena. Patient received 3 units of packed red blood cells with improvement of hemoglobin. Patient was seen and evaluated by GI. GI recommended EGD. EGD showed severe esophagitis with ulcers but no bleeding noted. This was complicated with candidiasis. At discharge patient will continue with Protonix 40 mg 1 pill twice daily and Diflucan 200 mg daily for 10 days. Recommend follow-up with GI in 2 to 4 weeks to follow-up his hospitalization. Patient may require repeat EGD in the future to follow resolution. Patient with end-stage renal disease on hemodialysis. Patient also with underlying CHF. Patient received dialysis during the course of his stay. Patient has done well. Patient will continue with dialysis as directed. Patient with history of CVA with right-sided residual weakness, hypertension, urinary retention with chronic Menendez catheter and chronic anticoagulation therapy. At discharge he will continue with his current medications of Eliquis 5 mg 1 pill twice daily, aspirin 81 mg daily, folic acid daily, midodrine as directed, Norvasc as directed, carvedilol as directed, Flomax 0.4 mg daily. May need to hold his blood pressure medication Norvasc and carvedilol if blood pressure less than 120 systolic. Recommend to monitor blood pressures daily. Further adjustment can be done by nephrology. Diet: Renal Activity: Ad dayne Followup: NONE,NONE [Primary Care Provider] - Time spent managing pt's care (in minutes): 55
[2020-08-30] MEDS ORDERED: EPOETIN ALFA 10,000 UNIT/ML VIAL IV SCH (12:15)
[2020-08-30] MEDS ORDERED: TRAMADOL HCL 50 MG TAB PO PRN (12:20)
--- NOTE | 2020-08-30 15:44 | CON ---
Date of Consultation: 08/30/2020 History Of Present Illness: This is a 70-year-old gentleman with significant past medical history of end-stage renal disease on hemodialysis TTS, benign prostate hypertrophy, CVA, has been on dialysis for the last 6 months. The patient missed dialysis for the last 4 days and came to the hospital complaining from intermittent blood clots in his Menendez with dizziness. The patient found to have GI bleed, underwent EGD, found to have esophagitis with Kamla. Past Medical History: Includes; 1. Hypertension. 2. CVA. 3. Right-sided hemiparesis. 4. Urinary retention. 5. End-stage renal disease. Family History: Positive for hypertension. Social History: Denied smoking. Denied drinking. Denies drugs abuse. Review of Systems: Head and Neck: No red eye. No ear pain. GI: Has epigastric pain. : No polyuria. Has urinary retention. Bevel Polisher: Not applicable. Respiratory: No shortness of breath. Cardiovascular: No chest pain. Endocrine: No polydipsia. Skin: No rash. Neuro: Has hemiparesis. Musculoskeletal: Generalized fatigue. Physical Examination: Vital Signs: When I saw the patient; blood pressure 103/60, pulse of 67, afebrile. Chest: Faint rales bilateral. Heart: S1, S2. Regular. Abdomen: Soft, nontender. Extremity: Trace edema. Neuro: Alert. Hemiparesis. Laboratory Data: WBC 10.3, H and H 7.1/21, platelets 358. Sodium 132, potassium 3.3, bicarb 26, BUN 38, creatinine 3.4, calcium is 7.8. Iron saturation 22, ferritin 1400, PTH 309. Current Medications: The patient on include pantoprazole, tramadol, morphine, Zofran. Assessment And Plan: 1. End-stage renal disease, over volume. We will challenge the patient today to establish better volume control. 2. Anemia secondary to hematuria and gastrointestinal loss. I am going to transfuse the patient another 2 units of blood. We will resume Retacrit. No need for IV iron given the level of ferritin. 3. Esophagitis. Follow up with GI. Agree with fluconazole. 4. Benign prostate hypertrophy. Continue Menendez. 5. Cerebrovascular accident. Continue supportive care. The patient followup with Dr. Yang. Discussed with Dr. Yang. 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 time spend exam the patient face to face , discussing with patient , reviewing la and radiology date, placing order , discussing the case with staff and with other team consultan and hospitalist 65 min. FRANKY Voice ID: [id number] Report ID: [id number] KAREN
[2020-08-30 17:13] LABS: Hematocrit 26.2 % (39.6-49.0)
--- NOTE | 2020-08-30 20:05 | OP ---
Surgeon: Jasper Ware MD Procedure Performed: Esophagogastroduodenoscopy. Indication For Procedure: Severe anemia, positive guaiac. Plan For Anesthesia: Monitored anesthesia care. Complexity: High due to the patient's comorbidities. Technique: After obtaining informed consent from the patient explaining risks and complications whic h include, but are not limited to bleeding, infection, perforation, and anesthesia complications, the patient was placed in a left lateral position and sedation was given. From then on, the scope was a dvanced into the mouth and carefully guided up to the third portion of the duodenum. After completio n of examination, scope and equipment were withdrawn and procedure terminated in a safe manner. Findings: Esophagus: From the mid to distal esophagus, there was evidence of moderate Kamla esoph agitis. Biopsies were taken. In the distal esophagus, there was significant ulceration with grade 4 esophagitis that would likely contribute to the guaiac and anemia. Biopsies were also taken from th is site including esophageal biopsies. Stomach: Mild patchy erythema seen in the antrum and body. Biopsies taken. Duodenum: The visualized portion of the duodenum did not reveal any significant abnormalities. Smal l bowel biopsies were taken. The papilla and the second part were prominent. This was biopsied as w ell. Complications: None. Tolerance To Anesthesia: Excellent. Postoperative Diagnoses: Severe ulcerative esophagitis, Kamla esophagitis, gastritis, prominent du odenal papilla. Plan: 1.Await pathology results. 2.Oral PPI b.i.d. 3.Treat for the Kamla with Diflucan. We will need repeat EGD in 6-8 weeks' time. US/MODL Voice ID: [id number] Report ID: [id number]
[2020-08-30] MEDS ORDERED: AMLODIPINE 5 MG TAB PO SCH (21:00)
[2020-08-30] MEDS ORDERED: carvediloL 6.25 MG TAB PO SCH (21:00)
[2020-08-30] MEDS ORDERED: MIRTAZAPINE 15 MG TAB PO SCH (21:00)
[2020-08-30] MEDS ORDERED: TAMSULOSIN 0.4 MG SR CAP PO SCH (21:00)
[2020-08-30] MEDS: APIXABAN 5 MG TABLET PO SCH (22:09)
[2020-08-31 01:46] VITALS: O2SAT 97
[2020-08-31 05:44] LABS: Absolute Lymphocytes (CBC) 1.5 K/uL (0.7-4.9); Basophils % 0.6 % (0-1.3); Hematocrit 26.4 % (39.6-49.0); Lymphocytes % 14.4 % (15.3-44.8); MPV 6.7 fL (7.6-11.3)
[2020-08-31 05:57] LABS: Bilirubin Total 0.5 mg/dL (0.2-1.0); Potassium 3.5 mmol/L (3.5-5.1)
[2020-08-31 05:58] LABS: Albumin 1.8 g/dL (3.4-5.0); Magnesium 1.9 mg/dL (1.8-2.4); Protein, Total 5.8 g/dL (6.4-8.2)
--- NOTE | 2020-08-31 08:13 | P.DS ---
Admission Date: 08/29/20 Discharge Date: 08/31/20 Primary Care Provider: residential Disposition: TRANSFER TO [facility] Discharge Condition: GOOD Reason for Admission: Weakness Consultations: Nephrology-Dr. Yang GI-Dr. Ware Procedures: COVID: Negative EGD: Severe esophagitis with ulcers. No bleeding noted. Kamla noted as well. Medical Problem List: Acute on chronic anemia secondary to severe esophagitis with ulcers complicated with candidiasis End-stage renal disease on hemodialysis Hypertension History of CVA with right-sided residual deficit Urinary retention with chronic Menendez catheter Chronic anticoagulation therapy Chronic pain Brief History of Present Illness: 70-year-old male past medical history of hypertension, prostate disorder, urine retention status post indwelling Menendez since the last 6 months, history of CVA with right-sided hemiparesis, ESRD on hemodialysis TTS since the last 6 months via right chest wall PermCath, CHF, chronic anticoagulation therapy. Patient is a resident of [facility] who was brought in from [place] today because of reported low H and H of 5.5. He denies any hematochezia or hematuria. He has history of intermittent blood clots with his Menendez which usually resolved with irrigation. Last episode was over a month ago. He states he has been feeling progressively weak but denies any syncope or dizziness. He denies any previous colonoscopy or diagnosis of cancer. There is no personal family history of GI disorder. On admission is more repeat hemoglobin is still low at 5.5 and he has been preparing for blood transfusion. Chest x-ray shows mild bilateral pulmonary infiltrates worrisome for interstitial edema. Patient was admitted for further evaluation and treatment. Hospital Course: Patient presented with abnormal lab. Patient found to have a hemoglobin of 5.5. Patient with acute on chronic anemia. Patient was admitted for further evaluation and treatment. Patient denied any significant coughing of blood, vomiting of blood or melena. Patient received 3 units of packed red blood cells with improvement of hemoglobin. Patient was seen and evaluated by GI. GI recommended EGD. EGD showed severe esophagitis with ulcers but no bleeding noted. This was complicated with candidiasis. At discharge hemoglobin stable at 8.8. Patient without significant symptoms. No significant nausea, vomiting or abdominal pain. At discharge patient will continue with Protonix 40 mg 1 pill twice daily and Diflucan 200 mg daily for 10 days as recommended by GI. Recommend follow-up with GI in 2 to 4 weeks to follow-up his hospitalization. Patient may require repeat EGD in the future to follow resolution. Patient with end-stage renal disease on hemodialysis. Patient also with underlying CHF. Patient received dialysis during the course of his stay. Patient has done well. Patient will continue with dialysis as directed every Thursday, and Thursday. Patient with history of CVA with right-sided residual weakness, hypertension, urinary retention with chronic Menendez catheter and chronic anticoagulation therapy. At discharge he will continue with his current medications of Eliquis 5 mg 1 pill twice daily, aspirin 81 mg daily, folic acid daily, midodrine as directed, Norvasc as directed, carvedilol as directed, Flomax 0.4 mg daily. May need to hold his blood pressure medication Norvasc and carvedilol if blood press ure less than 120 systolic. Recommend to monitor blood pressures daily. Further adjustment can be done by nephrology. Vital Signs/Physical Exam: Temp Pulse Resp BP Pulse Ox 98.0 F 72 16 132/70 99 08/31/20 04:00 08/31/20 04:00 08/31/20 04:00 08/31/20 04:00 08/31/20 04:00 General: Alert, In no apparent distress, Oriented x3, Cooperative HEENT: Atraumatic Neck: Supple Respiratory: Clear to auscultation bilaterally, Normal air movement Cardiovascular: Normal pulses, Regular rate/rhythm Gastrointestinal: Normal bowel sounds, No tenderness, No masses, No rebound, No guarding Neurological: Normal speech, Normal tone, Normal affect, Abnormal strength (Some right-sided hemiparesis chronic) Laboratory Data at Discharge: WBC 10.20 K/uL (4.3-10.9) 08/31/20 05:21 Hgb 8.8 g/dL (13.6-17.9) L 08/31/20 05:21 Hct 26.4 % (39.6-49.0) L 08/31/20 05:21 Plt Count 349 K/uL (152-406) 08/31/20 05:21 PT 16.8 SECONDS (9.5-12.5) H 08/29/20 12:24 INR 1.46 08/29/20 12:24 Sodium 136 mmol/L (136-145) 04/16/21 05:21 Potassium 3.5 mmol/L (3.5-5.1) 08/31/20 05:21 BUN 21 mg/dL (7-18) H 08/31/20 05:21 Creatinine 2.50 mg/dL (0.55-1.3) H 08/31/20 05:21 Glucose 81 mg/dL (74-106) 08/31/20 05:21 Magnesium 1.9 mg/dL (1.8-2.4) 08/31/20 05:21 Total Bilirubin 0.5 mg/dL (0.2-1.0) 08/31/20 05:21 AST 17 U/L (15-37) 08/31/20 05:21 ALT 8 U/L (12-78) L 08/31/20 05:21 Alkaline Phosphatase 250 U/L (45-117) H 08/31/20 05:21 Home Medications: Acetaminophen [Tylenol] 650 mg PO TID 08/29/20 Amino Acids/Protein Hydrolys [Pro-Stat Awc Liquid Packet] 30 ml PO DAILY 08/29/20 Amlodipine Besylate 5 mg PO SEECOM 08/29/20 Amlodipine Besylate 5 mg PO SEECOM 08/29/20 Apixaban [Eliquis] 5 mg PO BID 08/29/20 Aspirin 81 mg PO DAILY 08/29/20 Docusate [Colace Cap*] 100 mg PO DAILY 08/29/20 Ergocalciferol (Vitamin D2) [Vitamin D2] 50,000 unit PO Q7D 08/29/20 Folic Acid/Vit B Complex and C [Renal-Victorino Tablet] 0.8 mg PO DAILY 08/29/20 Lactulose 20 gm PO DAILY 08/29/20 Midodrine HCl 10 mg PO SEECOM 08/29/20 Mirtazapine [Remeron*] 15 mg PO BEDTIME 08/29/20 Oxybutynin Chloride [Ditropan Xl] 15 mg PO DAILY 08/29/20 Tamsulosin HCl [Flomax] 0.4 mg PO BEDTIME 08/29/20 Tramadol HCl [Ultram] 50 mg PO Q6HP PRN 08/29/20 carvediloL [Carvedilol] 6.25 mg PO SEECOM 08/29/20 carvediloL [Carvedilol] 6.25 mg PO SEECOM 08/29/20 Fluconazole [Diflucan] 200 mg PO DAILY #10 tablet 08/30/20 Pantoprazole [Protonix Tab] 40 mg PO BID #60 tab 08/30/20 New Medications: Fluconazole [Diflucan] 200 mg PO DAILY #10 tablet Pantoprazole [Protonix Tab] 40 mg PO BID #60 tab Physician Discharge Instructions: Patient presented with abnormal lab. Patient found to have a hemoglobin of 5.5. Patient with acute on chronic anemia. Patient was admitted for further evaluation and treatment. Patient denied any significant coughing of blood, vomiting of blood or melena. Patient received 3 units of packed red blood cells with improvement of hemoglobin. Patient was seen and evaluated by GI. GI recommended EGD. EGD showed severe esophagitis with ulcers but no bleeding noted. This was complicated with candidiasis. At discharge hemoglobin stable at 8.8. Patient without significant symptoms. No significant nausea, vomiting or abdominal pain. At discharge patient will continue with Protonix 40 mg 1 pill twice daily and Diflucan 200 mg daily for 10 days as recommended by GI. Recommend follow-up with GI in 2 to 4 weeks to follow-up his hospitalization. Patient may require repeat EGD in the future to follow resolution. Patient with end-stage renal disease on hemodialysis. Patient also with underlying CHF. Patient received dialysis during the course of his stay. Patient has done well. Patient will continue with dialysis as directed every Thursday, and Thursday. Patient with history of CVA with right-sided residual weakness, hypertension, urinary retention with chronic Menendez catheter and chronic anticoagulation ther apy. At discharge he will continue with his current medications of Eliquis 5 mg 1 pill twice daily, aspirin 81 mg daily, folic acid daily, midodrine as directed, Norvasc as directed, carvedilol as directed, Flomax 0.4 mg daily. May need to hold his blood pressure medication Norvasc and carvedilol if blood pressure less than 120 systolic. Recommend to monitor blood pressures daily. Further adjustment can be done by nephrology. Diet: Renal Activity: Ad dayne Followup: NONE,NONE [Primary Care Provider] - Jasper Ware MD [ACTIVE - CAN ADMIT] - (Follow up in 2-4 weeks. May need repeat EGD.) Adalid Yang MD [OUTSIDE PHYSICIAN] - (Follow up in regularly scheduled hemodialysis) Time spent managing pt's care (in minutes): 55
[2020-08-31 08:39] LABS: Blood Morphology Comment NOT SEEN (NOT SEEN); Platelet Estimate ADEQ
[2020-08-31] MEDS ORDERED: LACTULOSE 20 GM/30 ML UCUP PO SCH (09:00)
[2020-08-31] MEDS ORDERED: [UNRECOGNIZED DRUG - OTHER] PO SCH (09:00)
[2020-08-31] MEDS: PANTOPRAZOLE 40 MG INJ IVP SCH (09:00)
[2020-08-31] MEDS ORDERED: OXYBUTYNIN ER 5 MG TAB PO SCH (09:00)
[2020-08-31] MEDS ORDERED: AMINO ACIDS PO SCH (09:00)
[2020-08-31] MEDS ORDERED: MULTIVITAMINS,THERAPEUT 1 TAB PO SCH (09:00)
[2020-08-31] MEDS ORDERED: DOCUSATE NA 100 MG CAP PO SCH (09:00)
[2020-08-31] MEDS ORDERED: carvediloL 6.25 MG TAB PO SCH ×2 (09:00→21:00)
[2020-08-31] MEDS ORDERED: PROTEIN HYDROLYS PO SCH (09:00)
[2020-08-31] MEDS ORDERED: ASPIRIN 81 MG CHEWABLE TABLET PO SCH (09:00)
[2020-08-31] MEDS ORDERED: FLUCONAZOLE 100 MG TAB PO SCH (09:00)
[2020-08-31] MEDS ORDERED: LOPERAMIDE HCL 2 MG CAPSULE PO PRN (09:42)
--- NOTE | 2020-08-31 10:27 | P.PN ---
Subjective Date of Service: 08/31/20 Primary Care Provider: [facility] Chief Complaint: Weakness Subjective: Improving (Feels well today) Review of Systems 10-point ROS is otherwise unremarkable Physical Examination - Vital Signs Temperature: 98.6 F Blood Pressure: 122/75 Pulse: 80 Respirations: 18 Pulse Ox (%): 96 - Physical Exam General: Alert, In no apparent distress HEENT: Atraumatic, PERRLA, EOMI Neck: Supple, JVD not distended Respiratory: Clear to auscultation bilaterally, Normal air movement Cardiovascular: Regular rate/rhythm, Normal S1 S2 Gastrointestinal: Normal bowel sounds, No tenderness Musculoskeletal: No tenderness Integumentary: No rashes Neurological: Normal speech, Normal tone, Normal affect Urinary: Dialysis catheter - Studies Laboratory Data (last 24 hrs) 08/31/20 05:21: WBC 10.20, Hgb 8.8 L, Hct 26.4 L, Plt Count 349 08/31/20 05:21: Sodium 136, Potassium 3.5, BUN 21 H, Creatinine 2.50 H, Glucose 81, Magnesium 1.9, Total Bilirubin 0.5, AST 17, ALT 8 L, Alkaline Phosphatase 250 H 08/30/20 18:00: Hgb Cancelled, Hct Cancelled 08/30/20 17:00: Hgb Cancelled 08/30/20 17:00: Hgb 9.0 L, Hct 26.2 L D Assessment & Plan Physician Review: Patient Assessed, Agree with Above Assessment and Plan Physician Review Additional Text: ESRD Anemia-possibly due to blood loss vessels chronic kidney disease ESRD on dialysis History of CHF History of CVA Chronic urine retention-inch wheat indwelling Bradshaw Hypokalemia Hypotension-due to blood loss Plan HD yesterday Blood counts stable post transfusion Continue indwelling bradshaw. Followed with urologist recommended continued bradshaw use Pt inching closer to renal recovey, still requiring HD Can continue epogen in the outpt Electrolytes stable.
[2020-08-31] MEDS: APIXABAN 5 MG TABLET PO SCH (11:02)
[2020-08-31 17:04] VITALS: BP 112/75; TEMP 98.8
[2020-08-31] MEDS ORDERED: AMLODIPINE 5 MG TAB PO SCH (21:00)
[2020-09-01] MEDS ORDERED: AMLODIPINE 5 MG TAB PO SCH ×2 (09:00)
[2020-09-01] MEDS ORDERED: carvediloL 6.25 MG TAB PO SCH (09:00)
[2020-09-01] MEDS ORDERED: MIDODRINE HCL 5 MG TABLET PO SCH (09:00)
--- NOTE | 2020-10-11 12:32 | CON ---
Reason For Consultation: Severe anemia, positive guaiac. History Of Presenting Illness: The patient is a 70-year-old gentleman with past medical history of h ypertension, history of stroke, right-sided hemiparesis, history of urinary retention, congestive hea rt failure, end-stage renal disease, on dialysis via right chest PermCath, who is a resident of a [facility], who was brought from the facility because of hemoglobin of 5.5. The patient denies any he matemesis, melena, but does complain of weakness. Past Medical History: As above. Past Surgical History: Right chest PermCath, other remainder none pertinent to the current issue. Social History: Denies toxic habits. Review of Systems: GI: Essentially negative. General: Weakness and malaise. Remainder of 10-point review of systems negative. Physical Examination: Vitals reviewed, normotensive, not tachycardic, not tachypneic, afebrile. Laboratory Data: Reviewed. Hemoglobin as stated above, 5.5, has received transfusion. Stool guaiac was known to be positive in the ER without any overt bleeding. Impression: A 70-year-old gentleman with end-stage renal disease with multiple comorbidities includi ng being on dialysis with severe anemia, guaiac positive, source could be upper or lower GI related. Plan: We will start the workup with upper endoscopy to evaluate for peptic ulcer disease, erosive es ophagitis, and other lesions that could be the etiology. Risks and complications of the procedures, which include, but are not limited to bleeding, infection, perforation, anesthesia complication were discussed. He understands and agrees. Based on the finding on the upper endoscopy, he may need a co lonoscopy but that may be able to be done as an outpatient. US/MODL Voice ID: [id number] Report ID: [id number]
== END 2020-08-31 16:24 | DRG 380 ==
LOC: ER 10:43 → ERHOLD 13:55 → 2ND 17:41 → OBSVTOIN 08-31 07:55
PROVIDERS: ADMIT Internal Medicine; ATTEND Family Medicine
PROC: 30233N1 Transfusion of Nonautologous Red Blood Cells into Peripheral Vein, Percutaneous Approach (ICD-10-PCS; 2020-08-29)
PROC: 0DB98ZX Excision of Duodenum, Via Natural or Artificial Opening Endoscopic, Diagnostic (ICD-10-PCS; 2020-08-30)
PROC: 0DB78ZX Excision of Stomach, Pylorus, Via Natural or Artificial Opening Endoscopic, Diagnostic (ICD-10-PCS; 2020-08-30)
PROC: 0DB58ZX Excision of Esophagus, Via Natural or Artificial Opening Endoscopic, Diagnostic (ICD-10-PCS; 2020-08-30)
PROC: 5A1D70Z Performance of Urinary Filtration, Intermittent, Less than 6 Hours Per Day (ICD-10-PCS; principal; 2020-08-30 08:45)
DX: K22.10 Ulcer of esophagus without bleeding (principal); N18.6 End stage renal disease; I69.351 Hemiplegia and hemiparesis following cerebral infarction affecting right dominant side; I13.2 Hypertensive heart and chronic kidney disease with heart failure and with stage 5 chronic kidney disease, or end stage renal disease; B37.81 Candidal esophagitis; I50.9 Heart failure, unspecified; E87.6 Hypokalemia; K29.70 Gastritis, unspecified, without bleeding; E78.5 Hyperlipidemia, unspecified; N40.0 Benign prostatic hyperplasia without lower urinary tract symptoms; I95.9 Hypotension, unspecified; G89.29 Other chronic pain; D63.1 Anemia in chronic kidney disease; B37.9 Candidiasis, unspecified; R33.9 Retention of urine, unspecified; Z99.2 Dependence on renal dialysis; Z85.46 Personal history of malignant neoplasm of prostate; Z79.01 Long term (current) use of anticoagulants; Z79.82 Long term (current) use of aspirin; Z79.899 Other long term (current) drug therapy; Z91.15 Patient's noncompliance with renal dialysis; Z20.822 Contact with and (suspected) exposure to COVID-19
CPT/HCPCS: 36415; 36430; 71045; 80048; 80053; 80076; 81001; 82728; 83540; 83735; 83880; 84466; 84484; 85014; 85018; 85025; 85610; 86850; 86900; 86901; 87077; 87086; 87088; 87186; 88305; 88312; 90935; 93005; 99285; C9113; G0378; J1644; J1940; J2704; J7040; J7050; P9016; Q5105; U0003

== ENCOUNTER 2020-09-16 01:40 | Emergency (ER) | payer OTHER ==
--- OUTSIDE RECORDS SUMMARY | 2020-09-16 01:45 | XMS REPORT | Continuity of Care Document ---
:1950 Author Organization [facility] t Address [address] [place] [address] Care Team Providers Name Role Phone Joseph Rogers MD Attending Clinician Martita SANDERS Rp Attending Clinician Payers Payer Name Policy Type Policy Number Effective Date Expiration Date S ource Problems This patient has no known problems. Allergies, Adverse Reactions, Alerts Allergy Allergy Status Severity Reaction(s) Onset Inactive Treating Comm ents Source Name Type Date Date Clinician No Known DA Active U 2019-05 [facility]-04 Clear s 00:00: Rios 00 [facility] No Known DA Active U 2019-05 [facility] Allergie 1-21 Clear s 00:00: [address] Medications This patient has no known medications. Procedures This patient has no known procedures. Encounters Start End Encounter Admission Attending Care Care Encounter Source Date/Time Date/Time Type Type Clinicians Facility Department ID 2019-08-15 2019-08-15 RefCATRACHO Lau [id number] 00:00:00 00:00:00 Joseph Caldwell [facility] 350.1.13.10 Cancer 4.2.7.2.686 Center - [id number] MDA 204 2019-08-15 2019-08-15 Betty Anders, Bagi [facility] [id number] 00:00:00 00:00:00 [facility] 350.1.13.10 Cancer 4.2.7.2.686 [facility] [id number] [facility] 204 2019-08-15 2019-08-15 Telephone Yamilet Anders 1.2.840.114 [id number] 00:00:00 00:00:00 Rp H 350.1.13.10 [facility] 4.2.7.2.686 [id number] 2019-01-13 2019-01-13 Office Sue [facility] 1.2.065.155 [id number] 13:25:13 14:31:06 Visit Joseph Caldwell [facility] 350.1.13.10 Cancer 4.2.7.2.686 [facility] [id number] [facility] 204 Results Test Description Test Time Test Comments [...] Emergency Use A uthorization(EUA) for use by laborato deshawn certified under the CLIA thatme et the requirements to perform mode rate, high or waivedcomplexit y tests. COMMENTS: FOR POST ACUTE SNF PLACEMENTRENAL FUNCTION [id number] 08:26:00 Test Item Value Reference Range Interpretation [...] 3.6 MG/DL 2.5-4.9 N PHOS) CBC W/AUTO [id number] 07:56:00 Test Item Value Reference Range Interpretation [...] (test code NO = MDIFF) CBC W/AUTO [id number] 07:47:00 Test Item Value Reference Range Interpretation [...] DIFF REQUIRED (test code = MDIFF) - XR CHEST 1 [id number] 15:22:00 [facility] 1950 Sex: M FAX: Hans Escobar [phone] [place]: St: ADM Name: JAMAAL ROGERS [facility] : 1950 Age/S: 69/M [address] [place] [address] Unit #: [id number] Loc: [address] [address] Phys: Hans Cotton MD Acct: [id number] Dis Date: Status: ADM IN PHONE #: [phone] Exam Date: 05/14/2020 0432 FAX #: [phone] Reason: RULE OUT TB EXAMS: CPT CODE: [id number] XR CHEST 1 V 17361 Single view chest: HISTORY: Evaluate for tuberculosis. [...] By: DayETG Orig Print D/T: S: 05/14/2020 (152) PAGE 1 Signed ReportSURGICAL PATH [id number] 10:34:00 Test Item Value Reference Range Interpretation Comments SURGICAL PATH SPECIMENS (test code = SURG) RUN DATE: 05/12/20 [facility] *LIVE* PAGE 1 RUN TIME: 1035 Specimen Inquiry RUN USER: INTERFACE PATIENT: JAMAAL ROGERS LOC: MarkellS U #: [id number] AGE/SX: 69/M ROOM: [facility] RE04/20/20REG DR: Hans Cotton MD : 52 BED: 1 DIS: STATUS: ADM IN TLOC: SPEC #: [id number] RECD: 05/09/20 STATUS: FEMI MAGUIRE #: [id number] LATA: 05/08/[address] [facility] [address]: Hans Cotton MD ENTERED: 05/11/20 SP TYPE: SURG SPEC OTHR DR: No Primary or Family Physician Self Referred Jurgen Burgess Eric Joseph MD Gray, Nicholas PA-C Mahmood, Khalid MD Rodriguez, Gabriel MD Uzodinma, Obinna MDORDERED: GROSS AND MICRO CODES: [id number] - BONY TISSUE, NO COPIES TO: No Primary or Family Phys[place] [address] [facility] [address] [place], [place] [id number] Nicola Cruz MD [address] [facility] [address] [place] [address] Temo Aparicio PA-C [address] [facility] [address] [place] [address] Kit Reyes MD [address] [place] [address] [id number] Ant Perez MD [address] [facility] [address], [place] [id number] CONTINUED ON NEXT PAGE RUN DATE: 05/12/20 [facility] *LIVE* PAGE 2 RUN TIME: 1035 Specimen Inquiry RUN USER: INTERFACE SPEC #: [id number] PATIENT: JAMAAL ROGERS #[id number] (Continued) --- COPIES TO: (Continued) Hans Cotton MD [address] [place] [address] Saleem Zapata MD [address] [place] [id number] PROCEDURES: GROSS AND MICRO (Incomplete) TISSUES: 1. [...] CONTINUED ON NEXT PAGE RUN DATE: 05/12/20 [facility] *LIVE* PAGE 3 RUN TIME: 1035 Specimen Inquiry RUN USER: INTERFACE SPEC #: [id number] PATIENT: JAMAAL ROGERS #[id number] (Continued) --- Signed SIGNATURE ON FILE Lucina Hyde MD 05/12/20 1034 END OF REPORT BASIC METABOLIC [id number] 08:10:00 Test Item Value Reference Range Interpretation [...] code = 9.2 mg/dL 8.0-10.5 N CA) [id number] 08:10:00 Test Item Value Reference Range Interpretation Comments PHOSPHOROUS (test code = PHOS) 3.9 MG/DL 2.5-4.9 N CBC W/AUTO [id number] 07:30:00 Test Item Value Reference Range Interpretation [...] (test code NO = MDIFF) CBC W/AUTO [id number] 07:29:00 Test Item Value Reference Range Interpretation [...] MANUAL DIFF REQUIRED (test code = MDIFF) [id number] 11:01:00 Test Item Value Reference Range Interpretation Comments GLUBED (test code = 143 MG/DL 70-110 H Performe d by certified GLUBED) 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 [facility] BASIC METABOLIC [id number] 13:34:00 Test Item Value Reference Range Interpretation [...] 9.2 mg/dL 8.0-10.5 N CA) CBC W/AUTO [id number] 13:21:00 Test Item Value Reference Range Interpretation [...] REQUIRED (test code = MDIFF) CBC W/AUTO [id number] 13:21:00 Test Item Value Reference Range Interpretation [...] MDIFF) - SP DX BONE MARROW BX [id number] 13:03:00 [facility]: JAMAAL ROGERS : 1950 Sex: M FAX: Kit Riley MD [phone] [place]: St: [facility] FAX: Hans Doherty [phone] Name: JAMAAL ROGERS [facility] [place] : 1950 Age/S: 69/M [address] [place] [address] Unit #: [id number] Loc: [place] [address] Phys: Kit Reyes MD Acct: [id number] Dis Date: Status: ADM IN PHONE #: [phone] Exam Date: 05/09/2020 1525 FAX #: [phone] Reason: Metastatic prostate cancer EXAMS: CPT CODE: [id number] [place] [address] PROCEDURE: Fluoroscopy Guided bone lesion biopsy. INDICATION: [...] biopsy. Final pathology report is pending. SL: [id number] at 1303 Reported and signed by: Savanah Santizo D.O. PAGE 1 Signed Report (CONTINUED) FAX: Kit Riley MD [phone] [place]: St: ADM FAX: Hans Escobar [phone] Name: JAMAAL ROGERS [facility] [place] : 1950 Age/S: 69/M [address] [place] [address] Blvd Unit #: [id number] Loc: [address]imi[address] [place] [address] Phys: Kit Reyes MD Acct: [id number] Dis Date: Status:ADM IN PHONE #: [phone] Exam Date: 05/09/2020 1525 FAX #: [phone] Reason: Metastatic prostate cancer EXAMS: CPT CODE: [id number] [place] [address] <Continued> CC: Kit Reyes; Hans Cotton MD Technologist: Divina Meng RT(R) Trnscrd Date/Time/By: 05/10/2020 (8055) : By: [email or web address] Orig Print D/T: S: 05/10/2020 (9338) PAGE 2 Signed ReportPROTHROMBIN [id number] 11:46:00 Test Item Value Reference Range Interpretation [...] o prevent recurre nt infarct). THROMBOPLASTIN TIME [id number] 11:46:00 Test Item Value Reference Range Interpretation Comments THROMBOPLASTIN TIME 28.6 Seconds 25.0-39.5 N Ther apeutic PARTIAL (test code = Range: 50.4 - 88.3 PTT) Seconds Effective 08/31/2018 CBC W/AUTO [id number] 08:50:00 Test Item Value Reference Range Interpretation [...] code NO = MDIFF) - DUP VEIN UNI/[id number] 14:19:00 [facility] : 1950 Sex: M Name: JAMAAL ROGERS [facility] : 1950 Age/S: 69 / M [address] [place] [address] Blvd Unit #: [id number] Loc: [facility] ABDIFATAH [address] Phys: Hans Cotton MD Acct: [id number] Dis Date: Status: ADM IN PHONE #: [phone] Exam Date: 05/08/2020 1130 FAX #: [phone] Reason: RUE SWELLING. ASSESS FOR DVT EXAMS: CPT CODE: [id number] DUP VEIN UNI/LTD 79293 P ROCEDURE: UNILATERAL UPPER EXTREMITY VENOUS ULTRASOUND [...] CODING PURPOSES ONLY RESULT CODE: CVRRN SL: [id number] at 1419 Reported and signed by: Marisol Spencer M.D. CC: Hans Cotton MD Technologist: Jessica Pederson RDMS(Rich)(BR) Trnscb Date/Time: 05/08/2020 (1418) [email or web address] Orig Print D/T: S: 05/08/2020 (1712) Probe: PAGE 1 Signed ReportBASIC METABOLIC [id number] 08:16:00 Test Item Value Reference Range Interpretation [...] code = 9.2 mg/dL 8.0-10.5 N CA) [id number] 08:16:00 Test Item Value Reference Range Interpretation Comments PHOSPHOROUS (test code = PHOS) 4.2 MG/DL 2.5-4.9 N CBC W/AUTO [id number] 06:59:00 Test Item Value Reference Range Interpretation [...] (test code NO = MDIFF) CBC W/AUTO [id number] 07:53:00 Test Item Value Reference Range Interpretation [...] (test code NO = MDIFF) ACUTE HEPATITIS [id number] 16:16:00 Test Item Value Reference Range Interpretation Comments AB HEPATITIS A IGM (test NON REACTIVE INDEX NON REACT. code = HAVMAB) AG HEPATITIS B SURFACE NON REACTIVE INDEX NonReactive (test code = HBSAG) AB HEPATITIS B CORE IGM NON REACTIVE INDEX NON REACT. (test code = HBCMAB) AB HEPATITIS C (test code NON REACTIVE INDEX NON REACT. = HCVAB) BASIC METABOLIC [id number] 15:14:00 Test Item Value Reference Range Interpretation [...] code = 9.1 mg/dL 8.0-10.5 N CA) [id number] 15:14:00 Test Item Value Reference Range Interpretation Comments PHOSPHOROUS (test code = PHOS) 3.8 MG/DL 2.5-4.9 N [id number] 15:14:00 Test Item Value Reference Range Interpretation Comments MAGNESIUM (test code = MAG) 1.91 mg/dL 1.80-2.40 N CBC W/AUTO [id number] 15:02:00 Test Item Value Reference Range Interpretation [...] (test code NO = MDIFF) CBC W/AUTO [id number] 15:01:00 Test Item Value Reference Range Interpretation [...] REQUIRED (test code = MDIFF) BASIC METABOLIC [id number] 08:24:00 Test Item Value Reference Range Interpretation [...] code = 9.2 mg/dL 8.0-10.5 N CA) [id number] 08:24:00 Test Item Value Reference Range Interpretation Comments PHOSPHOROUS (test code = PHOS) 4.0 MG/DL 2.5-4.9 N [id number] 08:24:00 Test Item Value Reference Range Interpretation Comments MAGNESIUM (test code = MAG) 2.00 mg/dL 1.80-2.40 N CBC W/AUTO [id number] 08:09:00 Test Item Value Reference Range Interpretation [...] (test code NO = MDIFF) CBC W/AUTO [id number] 07:38:00 Test Item Value Reference Range Interpretation [...] REQUIRED (test code = MDIFF) Novel Coronavirus [id number] 15:31:00 Test Item Value Reference Range Interpretation Comments Novel Coronavirus Negative Negative Positive r esults are 2019 Inhouse (test indicativ e of the presence code = HGMTN25AM) ofSARS-CoV -2 RNA, clinical correlation wit h [...] for the identification of SARS-CoV-2 RNA usingthe Anatexis M2000 Sy stem under the FDA Emergen cy UseAuthorizatio n. The testing is perf ormed by personnelpatrick fontaine in the procedures for the Anatexis M2000 molecular diagnostic SARS-CoV-2 assa y in vitro. CBC W/AUTO [id number] 07:47:00 Test Item Value Reference Range Interpretation [...] - XR KNEE 1 OR 2 V [id number] 15:21:00 [facility] : 1950 Sex: M FAX: Hans Escobar [phone] [place]: St: ADM Name: SUEJAMAAL [facility] : 1950 Age/S: 69/M [address] [place] [address] Blvd Unit #: [id number] Loc: [place] [address] Phys: Hans Cotton MD Acct: [id number] Dis Date: Status: ADM IN PHONE #: [phone] Exam Date: 05/01/2020 1312 FAX #: [phone] Reason: ASSESS FOR DJD EXAMS: CPT CODE: [id number] XR KNEE 1 OR 2 V RT [address]83 Study: - XR KNEE 1 OR 2 V RT 05/01/2020 8:00 AM Patient Name: JAMAAL ROGERS MR: [id number] : 1950; Age: 69 years y/o Male [...] osteoarthrosis, worst at the lateral compartment. SL: [id number] at 1521 Reported and signed by: Tello Rondon M.D. CC: Hans Cotton MD Technologist: RT Zulema(R) Trnscrd Date/Time/By: 05/01/2020 (152) : By: [email or web address] Orig Print D/T: S: 05/01/2020 (1524) PAGE 1 Signed ReportCBC W/AUTO [id number] 08:14:00 Test Item Value Reference Range Interpretation [...] (test code NO = MDIFF) COMPREHENSIVE METABOLIC [id number] 07:55:00 Test Item Value Reference Range Interpretation [...] TOTAL (test code = ALKP) BASIC METABOLIC [id number] 08:13:00 Test Item Value Reference Range Interpretation [...] 8.9 mg/dL 8.0-10.5 N CA) CBC W/AUTO [id number] 07:26:00 Test Item Value Reference Range Interpretation [...] (test code NO = MDIFF) CBC W/AUTO [id number] 07:23:00 Test Item Value Reference Range Interpretation [...] code = MDIFF) COVID 19 Asymptomatic IH [id number] 09:42:00 Test Item Value Reference Range Interpretation [...] or waivedcomplexit y tests. COMMENTS: NRENAL FUNCTION [id number] 13:51:00 Test Item Value Reference Range Interpretation [...] 4.6 MG/DL 2.5-4.9 N PHOS) CBC W/AUTO [id number] 13:32:00 Test Item Value Reference Range Interpretation [...] (test code NO = MDIFF) BASIC METABOLIC [id number] 11:25:00 Test Item Value Reference Range Interpretation [...] 7.8 mg/dL 8.0-10.5 L CA) CBC W/AUTO [id number] 11:04:00 Test Item Value Reference Range Interpretation [...] REQUIRED (test code NO = MDIFF) VITAMIN [id number] 08:31:00 Test Item Value Reference Range Interpretation Comments VITAMIN B12 (test code = VITB12) 999 pg/mL 193-986 H Indication for Test: Osteopenia/Bone Dis RiskFOLIC [id number] 08:31:00 Test Item Value Reference Range Interpretation Comments FOLIC ACID (test code = FOL) 5.2 ng/mL 3.1-17.5 N Indication for Test: Osteopenia/Bone Dis RiskTHYROID STIMULATING HORMONE 2020-04-21 08:31:00 Test Item Value Reference Range Interpretation Comments THYROID STIMULATING 0.75 0.42-5.47 N Results in HORMONE (test code = TSH) mi lli-International Units/mL Indication for Test: Osteopenia/Bone Dis RiskVITAMIN D 78-[id number] 08:31:00 Test Item Value Reference Range Interpretation Comments VITAMIN D 25-HYDROXY (test code = 15.7 ng/mL 30-100 L VITD25) Indication for Test: Osteopenia/Bone Dis Risk- XR CHEST 1 [id number] 14:39:00 [facility] 1950 Sex: M FAX: Nanda Culver MD [phone] [place]: St: ADM FAX: Smith Horton MD [phone] Name: JAMAAL ROGERS [facility] [place] : 1950 Age/S: 69/M [address] [place] [address] Unit #: [id number] Loc: G.[address] [place] [address] Phys: Smith Estes MD Acct: [id number] Dis Date: Status: ADM IN PHONE #: [phone] Exam Date: 04/20/2020 1433 FAX #: [phone] Reason: liney EXAMS: CPT CODE: [id number] XR CHEST 1 V 23058 Single view chest: HISTORY: Line placement. FINDINGS: Right IJ temporary di alysis catheter has been exchanged for a tunneled dialysis catheter compared with 04/07/2020.The new catheter is positioned with the tips near the cavoatrial junction in satisfactory position. The lungs are clear. Stable tortuous thoracic aorta. No pneumothorax. IMPRESSION: Satisfactory placement of right IJ tunneled dialysis catheter SL: [id number] at 1439 Reported and signed by: Nicola Moran M.D. CC: Nanda Culver MD; Smith Estes MD Technologist: RT Zulema(Marcelle) Trnscrd Date/Time/By: 04/20/2020 (7032) : By: DayETG Orig Print D/T: S: 04/20/2020 (7862) PAGE 1 Signed Report- XR FLUOROSCOPY 0-60 [id number] 13:29:00 [facility] : 1950 Sex: M FAX: Nanda Culver MD [phone] [place]: St: ADM FAX: Smtih Horton MD [phone] Name: JAMAAL ROGERS [facility] : 1950 Age/S: 69/M [address] [place] [address] Unit #: [id number] Loc: [address] [place] [address] Phys: Smith Estes MD Acct: [id number] Dis Date: Status: ADM IN PHONE #: [phone] Exam Date: 04/20/2020 1141 FAX #: [phone] Reason: ESRD EXAMS: CPT CODE: [id number] XR FLUOROSCOPY 0-60 MIN 68542 Intraprocedural fluoroscopy was provided by the Department of Radiology. Any images obtained were interpreted by the surgeon intraoperatively. Reference air kerma: 1.1 mGy, fluoroscopy time 6 seconds SL: [id number] at 1329 Reported and signed by: Nicola Moran M.D. CC: Nanda Culver MD; Smith Estes MD Technologist: Merrill Naranjo RT(R) Trnscrd Date/Time/By: 04/20/2020 (5454) : By: DayETG Orig Print D/T: S: 04/20/2020 (7942) PAGE 1 Signed ReportBASIC METABOLIC [id number] 08:39:00 Test Item Value Reference Range Interpretation [...] 8.4 mg/dL 8.0-10.5 N CA) CBC W/AUTO [id number] 07:59:00 Test Item Value Reference Range Interpretation [...] REQUIRED (test code NO = MDIFF) PROTHROMBIN [id number] 05:38:00 Test Item Value Reference Range Interpretation [...] recurre nt infarct). COVID 19 Asymptomatic IH [id number] 18:33:00 Test Item Value Reference Range Interpretation [...] COMMENTS: If not done this admissionCBC W/AUTO [id number] 08:47:00 Test Item Value Reference Range Interpretation [...] (test code NO = MDIFF) CBC W/AUTO [id number] 08:31:00 Test Item Value Reference Range Interpretation [...] REQUIRED (test code = MDIFF) BASIC METABOLIC [id number] 07:47:00 Test Item Value Reference Range Interpretation [...] 7.8 mg/dL 8.0-10.5 L CA) BASIC METABOLIC [id number] 08:14:00 Test Item Value Reference Range Interpretation [...] 8.2 mg/dL 8.0-10.5 N CA) CBC W/AUTO [id number] 06:59:00 Test Item Value Reference Range Interpretation [...] (test code NO = MDIFF) BASIC METABOLIC [id number] 08:22:00 Test Item Value Reference Range Interpretation [...] code = 7.5 mg/dL 8.0-10.5 L CA) [id number] 08:22:00 Test Item Value Reference Range Interpretation Comments PHOSPHOROUS (test code = PHOS) 4.3 MG/DL 2.5-4.9 N CBC W/AUTO [id number] 08:19:00 Test Item Value Reference Range Interpretation [...] (test code NO = MDIFF) BASIC METABOLIC [id number] 07:44:00 Test Item Value Reference Range Interpretation [...] 7.6 mg/dL 8.0-10.5 L CA) CBC W/AUTO [id number] 06:50:00 Test Item Value Reference Range Interpretation [...] (test code NO = MDIFF) CBC W/AUTO [id number] 06:49:00 Test Item Value Reference Range Interpretation [...] MANUAL DIFF REQUIRED (test code = MDIFF) [id number] 13:07:00 Test Item Value Reference Range Interpretation Comments HAPTOGLOBIN (test code 275 mg/dL 32-363 Perfo rmed At: BN = HAPT) [facility] [address] [id number] ra Jamia SANDERS Ph:[phone] BASIC METABOLIC [id number] 07:37:00 Test Item Value Reference Range Interpretation [...] 8.1 mg/dL 8.0-10.5 N CA) CBC W/AUTO [id number] 07:01:00 Test Item Value Reference Range Interpretation [...] (test code NO = MDIFF) CBC W/AUTO [id number] 06:55:00 Test Item Value Reference Range Interpretation [...] (test code = MDIFF) - DUP EXTRACRANIAL [id number] 10:19:00 [facility] MARIA DE JESUS RIOSName: JAMAAL ROGERS : 1950 Sex: M Name: JAMAAL ROGERS [facility] Maria De Jesus Rios : 1950 Age/S: 69 / M [address] [place] [address] Blvd Unit #: [id number] Loc: ABDIF[place]H [place] [address] Phys: Miko Stone MD Acct: [id number] Dis Date: Status: ADM IN PHONE #: [phone] Exam Date: 04/14/2020835 FAX #: [phone] Reason: cva EXAMS: CPT CODE: [id number] DUP EXTRACRANIAL [place] [address] BILATERAL CAROTID ULTRASOUND HISTORY: Cerebrovascular accident TECHNIQUE:Aparicio-scale, [...] occlusion High, low, or Variable undetectable SL: [id number] PAGE 1 Signed Report (CONTINUED) Name: JAMAAL ROGERS [facility] Maria De Jesus Rios : 1950 Age/S: 69 / M [address] Unit #: [id number] Loc: [place]H [address] Phys: Arsh Stone MD Acct: [id number] Dis Date: Status: ADM IN PHONE #: [phone] Exam Date: 04/14/2020 08 FAX #: [phone] Reason: cva EXAMS: CPT CODE: [id number] DUP EXTRACRANIAL [place] [address] <Continued> at 1019 Reported and signed by: Solo Collins M.D. CC: Nanda Culver MD; Miko Stone MD Technologist: Patrick Morales Trnscb Date/Time: 04/14/2020 (1019) t.[email or web address] Orig Print D/T: S: 04/14/2020 (1022) Probe: PAGE 2 Signed ReportBASI METABOLIC [id number] 08:27:00 Test Item Value Reference Range Interpretation [...] LDL 76.4 mg/dL 0-100 N <100 OPT XDJH826-827 (test code = LDL) NEAR OPTI MAL/ABOVE [id number] AXAXWPTHRD613-0 89 HIGH>VM=350 VE RY HIGH*Guidelines provided by the National Choles terol EducationProgra Adult Treatment Panel III CBC W/AUTO [id number] 07:44:00 Test Item Value Reference Range Interpretation [...] (test code NO = MDIFF) CBC W/AUTO [id number] 07:39:00 Test Item Value Reference Range Interpretation [...] (test code = MDIFF) AB HEPATITIS B [id number] 03:07:00 Test Item Value Reference Range Interpretation Comments AB HEPATITIS B < 3.1 mIU/mL Immunity>9.9 L Status of I mmunity SURFACE (test code = HBSAB) Anti-HBs Level --- I ncons istent with Imm unity 0.0 - 9.9Consis tent with Immunity >9.9Performed A t: HD [facility] [address] [id number] Deniz Lima MD Ph:[phone] - MRI BRAIN W/O [id number] 12:53:00 [facility]LE LAKEName: JAMAAL ROGERS : 1950 Sex: M FAX: Nanda Culver MD [phone] [place]: St: ADM FAX: Miko Willis MD [phone] Name: JAMAAL ROGERS [facility] [place] : 1950 Age/S: 69/M [address] [place] [address] Blvd Unit #: [id number] Loc: G.[facility] [place] [address] Phys: Miko Stone MD Acct: [id number] Dis Date: Status: ADM IN PHONE #: [phone] Exam Date: 04/13/2020 1159 FAX #: [phone] Reason: r/o CVA EXAMS: CPT CODE: [id number] MRI BRAIN W/O CONT 91659 MRI brain without contrast 04/13/2020 HISTORY: Change [...] and mild chronic microvascular ischemic changes. SL: [id number] Electronically Signedby Alan Collins on 04/13/2020 at 1253 Reported and signed by: Solo Collins M.D. CC: Nanda Culver MD; Miko Stone MD Technologist: Jannet Baldwin RT(R)(MR); ... Trnscrd Date/Time/By: 1 06/13/2019 (1253) : By: [email or web address] PAGE 1 Signed Report- NM BONE WHOLE [id number] 11:38:00 [facility] 1950 Sex: M FAX: Nanda Culver MD [phone] [place]: St: ADM FAX: Kit Edwards MD [phone] Name: JAMAAL ROGERS [facility] : 1950 Age/S: 69/M [address] [place] [address] Unit #: [id number] Loc: G.[address] [place] [address] Phys: Kit Reyes MD Acct: [id number] Dis Date: Status: ADM IN PHONE #: [phone] Exam Date: 04/13/2020 1115 FAX #: [phone] Reason: H/O prostate cancer with elevated PSA, eval for EXAMS: CPT CODE: [id number] NM BONE WHOLE BODY 22311 clear whole body bone scan: HISTORY: Prostate cancer, [...] IMPRESSION: Multiple bony metastases are noted. SL: [id number] at 1138 Reported and signed by: Nicola Moran M.D. CC: Nanda Culver MD; Kit Reyes Technologist:JERRY Rodriguez (N)(CT); ... Trnscrd Date/Time/By: 04/13/2020 (1139) : By:DayETG PAGE 1 Signed Report- CT CHEST W/O [id number] 08:08:00[facility] : 1950 Sex: M Name: JAMAAL ROGERS [facility] : 1950 Age/S: 69 / M [address] [place] [address] Unit #: [id number] Loc: ABDIFATAH [place] [address] Phys: Kit Reyes MD Acct: [id number] Dis Date: Status: ADM IN PHONE #: [phone] Exam Date: 04/13/2020725 FAX #: [phone] Reason: Pulmonary nodules, prostate cancer EXAMS: CPT CODE: [id number] CT CHEST W/O CONTRAST [id number] PROCEDURE: CT CHEST WITHOUT CONTRAST 04/13/2020 INDICATION: [...] 1 Signed Report (CONTINUED) Name: JAMAAL ROGERS [facility] [place] : 1950 Age/S: 69 / M [address] [place] [address] Unit #: [id number] Loc: [place] [address] Phys: Kit Reyes MD Acct: [id number] Dis Date: Status: ADM IN PHONE #: [phone] Exam Date: 04/13/2020725 FAX #: [phone] Reason: Pulmonary nodules, prostate cancer EXAMS:CPT CODE: [id number] CT CHEST W/O CONTRAST 58405 <Continued> 4. Partially imaged right hydronephrosis. Please refer to the recent abdomen CT report. 5. Peripherally calcified left thyroid nodule with overall decreased thyroid density to be correlated for decreased thyroid function. ____ The [employer] (ACR) consensus guidelines for [...] M.D. CC: Nanda Culver MD; Kit Reyes Technologist:Miguel Pearce, RT(R) CTDI: DLP: Trnscb Date/Time: 04/13/2020 (807) [email or web address] Orig Print D/T: S: 04/13/2020 (11) PAGE 2 Signed ReportCBC W/AUTO [id number] 07:56:00 Test Item Value Reference Range Interpretation [...] (test NO code = MDIFF) BASIC METABOLIC [id number] 07:56:00 Test Item Value Reference Range Interpretation [...] 8.0-10.5 L CA) - CT HEAD/BRAIN W/O [id number] 13:42:00 [facility] 1950 Sex: M Name: JAMAAL ROGERS [facility] : 1950 Age/S: 69 / M [address] [place] [address] Blvd Unit #: [id number] Loc: ABDIFATAH [place] [address] Phys: Miko Stone MD Acct: [id number] Dis Date: Status: ADM IN PHONE #: [phone] Exam Date: 04/12/2020 1311 FAX #: [phone] Reason: r/o cva, right sided weakness EXAMS: CPT CODE: [id number] CT HEAD/BRAIN W/O CONT [address]22 CT head without contrast 04/12/2020 HISTORY: Right-sided [...] capsule. 2. No acute intracranial hemorrhage. SL: [id number] at 1342 Reported and signed by: Solo Collins M.D. CC: Nanda Culver MD; Miko Stone MD Technologist:Casandra Michaels, RT(R)(CT) CTDI: DLP: Trnscb Date/Time: 04/12/2020 (0612) [email or web address] Orig Print D/T: S: 04/12/2020 (0722) PAGE 1 Signed ReportLOG[facility] W/AUTO [id number] 11:21:00 Test Item Value Reference Range Interpretation [...] (test code NO = MDIFF) AG PROSTATE [id number] 09:20:00 Test Item Value Reference Range Interpretation [...] by an alternate metho d. BASIC METABOLIC [id number] 08:28:00 Test Item Value Reference Range Interpretation [...] 3.3 % 0.3-2.3 H RETICA) RENAL FUNCTION [id number] 16:56:00 Test Item Value Reference Range Interpretation [...] 9.5 MG/DL 2.5-4.9 H = PHOS) HGB [id number] 16:38:00 Test Item Value Reference Range Interpretation Comments HEMOGLOBIN (test code = 6.4 g/dL 12.5-16.9 LL Crit ical result called HGB) to Patel HESS[facility].MFC at 04/11/20Nurse r ead back result and tech confirmed it's correct? YES HEMATOCRIT (test code = 19.1 % 37.5-50.7 L HCT) CBC W/AUTO [id number] 08:28:00 Test Item Value Reference Range Interpretation [...] NO (test code = MDIFF) PROTEIN ELECTROPHORESIS [id number] 13:11:00 Test Item Value Reference Range Interpretation Comments TOTAL PROTEIN 6.3 g/dL 6.0-8.5 (test code = PROTE) ALBUMIN (test 3.3 g/dL 2.9-4.4 code = ALBE) HCJEH-0-OFAUGHRK 0.4 g/dL 0.0-0.4 (test code = A1G) QKCPQ-1-UHCVVCGG 0.6 g/dL 0.4-1.0 (test code = A2G) [...] otein is not apparent.Perfor med At: [facility] [address]qyaqmd[address] [place], [place] [id number] Kyle L MD Ph:[phone] rform ed At: [facility] [address] [facility] [address] [place], [place] [id number] swathi SANTILLAN MD Ph:[phone] ACUTE HEPATITIS [id number] 10:12:00 Test Item Value Reference Range Interpretation Comments AB HEPATITIS A IGM (test NON REACTIVE INDEX NON REACT. code = HAVMAB) AG HEPATITIS B SURFACE NON REACTIVE INDEX NonReactive (test code = HBSAG) AB HEPATITIS B CORE IGM NON REACTIVE INDEX NON REACT. (test code = HBCMAB) AB HEPATITIS C (test code NON REACTIVE INDEX NON REACT. = HCVAB) AB HEPATITIS B [id number] 10:12:00 Test Item Value Reference Range Interpretation Comments AB HEPATITIS B CORE Negative Negative Performe d At: (test code = HBCAB) [facility] [address]imhsbb[address] [place], [place] [id number] sybil Lima MD Ph:[phone] CBC W/AUTO [id number] 08:47:00 Test Item Value Reference Range Interpretation [...] REQUIRED (test NO code = MDIFF) PLT [id number] 08:47:00 Test Item Value Reference Range Interpretation Comments PLATELET ESTIMATE (test code 112-140 THOUSAND ADEQUATE = PLTEST) PLATELET MORPHOLOGY (test LARGE PLATELETS code = PLTMORPH) CBC W/AUTO [id number] 08:02:00 Test Item Value Reference Range Interpretation [...] REQUIRED (test NO code = MDIFF) PLT [id number] 08:02:00 Test Item Value Reference Range Interpretation Comments PLATELET ESTIMATE (test code = THOUSAND ADEQUATE PLTEST) CBC W/AUTO [id number] 08:02:00 Test Item Value Reference Range Interpretation [...] REQUIRED (test NO code = MDIFF) PLT [id number] 08:02:00 Test Item Value Reference Range Interpretation Comments PLATELET ESTIMATE (test code = THOUSAND ADEQUATE PLTEST) BASIC METABOLIC [id number] 07:53:00 Test Item Value Reference Range Interpretation [...] mg/dL 8.0-10.5 L CA) TOTAL IRON BINDING [id number] 16:33:00 Test Item Value Reference Range Interpretation Comments SERUM IRON (test code = IRON) 34 mcg/dL 35-150 L TOTAL IRON BINDING CAPACITY (test 221 mcg/dL 260-445 L code = TIBC) UIBC (test code = UIBC) 187 mcg/dL IRON SATURATION (test code = 15.4 % 14-34 N FESAT) [id number] 16:33:00 Test Item Value Reference Range Interpretation Comments FERRITIN (test code = INGRID) 903.6 ng/mL 23.9-336.2 H HGB [id number] 10:14:00 Test Item Value Reference Range Interpretation Comments HEMOGLOBIN (test code = HGB) 7.7 g/dL 12.5-16.9 L HEMATOCRIT (test code = HCT) 24.4 % 37.5-50.7 L - XR FLUOROSCOPY 0-60 [id number] 07:14:00 [facility] L[facility]EName: JAMAAL ROGERS : 1950 Sex: M FAX: Nanda Culver MD [phone] [place]: St: ADM FAX: Prasad Wood MD [phone] Name: JAMAAL ROGERS [facility] [place] : 1950 Age/S: 69/M [address] [place] [address] Unit #: [id number] Loc: G.3354 [place] [address] Phys: Prasad Medina MD Acct: [id number] Dis Date: Status: ADM IN PHONE #: [phone] Exam Date: 04/08/20201802 FAX #: [phone] Reason: CYSTOSCOPY; CLOT RETENTION EXAMS: CPT CODE: [id number] XR FLUOROSCOPY 0-60 MIN 29514 Pa tient Name: JAMAAL ROGERS : 1950; Age: 69 years y/o Male MR: [id number] Study: - XR FLUOROSCOPY 0-60 MIN 04/08/2020 5:32 PM Ordering Physician: Prasad Medina MD Clinical Indication: ; CYSTOSCOPY; CLOT RETENTION Comparison: None FINDINGS: Multiple spot fluoroscopic images from cystoscopy and clot evacuation are submitted for evaluation. Fluoroscopy Time: 35 sec ReferenceAir Kerma: 18.9 mGy IMPRESSION: Please refer to the official procedure report for complete assessment. SL: [id number] at 0714 Reported and signed by: Tello Rondon M.D. CC: Nanda Culver MD; Prasad Medina MD Technologist: RT Rogelio(Marcelle) Trnscrd Date/Time/By: 04/09/2020 (713) : By: DayAP24 Orig Print D/T: S: 04/09/2020 (2114) PAGE 1 Signed ReportBASIC METABOLIC [id number] 04:51:00 Test Item Value Reference Range Interpretation [...] 7.2 mg/dL 8.0-10.5 L CA) CBC W/AUTO [id number] 04:37:00 Test Item Value Reference Range Interpretation Comments WHITE BLOOD CELL (test 10.7 x10 3/uL 4.5-11.0 N code = WBC) RED BLOOD CELL (test 2.12 x10 6/uL 4.00-5.60 L code = RBC) HEMOGLOBIN (test code 6.0 g/dL 12.5-16.9 LL Critic al result = HGB) called to DARYL GOMEZ WC1 at 0436 04/09/20Nstaci estrella back resut [...] REQUIRED NO (test code = MDIFF) HGB [id number] 20:41:00 Test Item Value Reference Range Interpretation Comments HEMOGLOBIN (test code = 6.2 g/dL 12.5-16.9 LL Crit ical result called HGB) to NESS LeLAB.PTP at 20 41 04/08/20Nstaci farr ead back resut and tech confirmed it's correct? Y HEMATOCRIT (test code = 18.7 % 37.5-50.7 L HCT) COMMENTS: check after patient finished with 2nd unit of bloodCOVID 19 Asymptomatic IH [id number] 13:08:00 Test Item Value Reference Range Interpretation Comments COVID 19 Asymptomatic Negative Negative A nega tive result is IH AG (test code = presumpti ve and should COVNONPUIAG) be confirmedwit h an FDA authorized mole cular assay, if neces bret forpatient michael rizwan.A positive result does not rule out co-inf [...] If not done this admission- US RETRO [id number] 12:12:00 [facility] 1950 Sex: M Name: JAMAAL ROGERS [facility] : 1950 Age/S: 69 / M [address] [place] [address] Unit #: [id number] Loc: [facility] ABDIFATAH [address] Phys: Art Orozco MD Acct: [id number] Dis Date: Status: ADM IN PHONE #: [phone] Exam Date: 04/08/2020 1000 FAX #: [phone] Reason: arf EXAMS: CPT CODE: [id number] RETRO LTD [address] Procedure: Renal Ultrasound. Clinical Indication: Acute renal [...] 1 Signed Report (CONTINUED) Name: JAMAAL ROGERS [facility] : 1950 Age/S: 69 / M [address] [place] [address] Blvd Unit #: [id number] Loc: [place] [address] Phys: Art Orozco MD Acct: [id number] Dis Date: Status: ADM IN PHONE #: [phone] Exam Date: 04/08/2020 1005 FAX #: [phone] Reason: arf EXAMS: CPT CODE: [id number] [facility] [address] <Continued> at 1212 Reported and signed by: Ritchie Augilar M.D. CC: Nanda Culver MD; Art Orozco MD Technologist: Seferino Berry RDMS() Trnscb Date/Time: 04/08/2020 (1212) Gena Orig Print D/T: S: 04/08/2020 (1215) Probe:PAGE 2 Signed Report- CT ABD PELVIS W/O CONT 2020-04-08 10:54:00 [facility] MARIA DE JESUS RIOSName: JAMAAL ROGERS : 1950 Sex: M Name: JAMAAL ROGERS [facility] [place] : 1950 Age/S: 69 / M [address] [place] [address] Blvd Unit #: [id number] Loc: [place] [address] Phys: Prasad Medina MD Acct: [id number] Dis Date: Status: ADM IN PHONE #: [phone] Exam Date: 04/08/2020820 FAX #: [phone] Reason: hematuria EXAMS: CPT CODE: [id number] CT ABD PELVIS W/O CONT 68064 STUDY: - CT ABD PELVIS W/O CONT 04/08/2020 5:27 AM Ordering Physician: Prasad Medina MD Patient Name: JAMAAL ROGERS MR: [id number] : 1950; Age: 69 years y/o Male [...] 1 Signed Report (CONTINUED) Name: JAMAAL ROGERS [facility] [place] : 1950 Age/S: 69 / M [address] [place] [address] Blvd Unit #: [id number] Loc: [place] [address] Phys: Prasad Medina MD Acct: [id number] Dis Date: Status: ADM IN PHONE #: [phone] Exam Date: 04/08/2020820 FAX #: [phone] Reason: hematuria EXAMS: CPT CODE: [id number] CT ABD PELVIS W/O CONT 35762 <Continued> IVC: Normal caliber nonenhanced. ABDOMINAL ORGANS: [...] PAGE 2 Signed Report (CONTINUED) Name: JAMAAL ROGERS : 1950 Age/S: 69 / M [address] [place] [address] BlvdUnit #: [id number] Loc: ABDIFATAH [place] [address] Phys: Prasad Medina MD Acct: [id number] Dis Date: Status:ADM IN PHONE #: [phone] Exam Date: 04/08/2020820 FAX #: [phone] Reason: hematuria EXAMS: CPT CODE: [id number] CT ABD PELVIS W/O CONT 06470 <Continued> IMPRESSION: 1. Large intravesicular hematoma measuring [...] Sharla at10:53 AM 04/08/2020 by telephone. SL: [id number] at 1054 Reported and signed by: Tello Rondon M.D. CC: Nanda Culver MD; Prasad Medina MD Technologist:Jamshid Stanton, RT(R)(CT) CTDI: DLP: Trnscb Date/Time: 04/08/2020 (4447) [id number] Orig Print D/T: S: 04/08/2020 (0628) PAGE 3 Signed ReportCBC W/AUTO [id number] 08:00:00 Test Item Value Reference Range Interpretation [...] al result = HCT) called to Patel CORNELL.PJ at 075 9 [...] NO (test code = MDIFF) BASIC METABOLIC [id number] 07:57:00 Test Item Value Reference Range Interpretation [...] code = 8.8 mg/dL 8.0-10.5 N CA) [id number] 07:57:00 Test Item Value Reference Range Interpretation Comments MAGNESIUM (test code = MAG) 2.16 mg/dL 1.80-2.40 N ACUTE HEPATITIS [id number] 15:41:00 Test Item Value Reference Range Interpretation Comments AB HEPATITIS A IGM (test NON REACTIVE INDEX NON REACT. code = HAVMAB) AG HEPATITIS B SURFACE NON REACTIVE INDEX NonReactive (test code = HBSAG) AB HEPATITIS B CORE IGM NON REACTIVE INDEX NON REACT. (test code = HBCMAB) AB HEPATITIS C (test code NON REACTIVE INDEX NON REACT. = HCVAB) AB HEPATITIS B [id number] 15:41:00 Test Item Value Reference Range Interpretation Comments AB HEPATITIS B CORE (test code = HBCAB) - XR CHEST 1 [id number] 14:18:00 [facility] 1950 Sex: M FAX: Nanda Culver MD [phone] [place]: St: ADM FAX: Smith Horton MD [phone] Name: JAMAAL ROGERS [facility] : 1950 Age/S: 69/M [address] [place] [address] Unit #: [id number] Loc: G.3354 [place] [address] Phys: Smith Estes MD Acct: [id number] Dis Date: Status: ADM IN PHONE #: [phone] Exam Date: 04/07/2020 1352 FAX #: [phone] Reason: VERIFY CENTRAL LINE PLACEMENT EXAMS: CPT CODE: [id number] XR CHEST 1 V 93522 PROCEDURE: Chest Radiograph. Clinical Indication: Line placement, CHF, acute renal failure. Comparison: None. FINDINGS: The chest shows minimal bibasilar pulmonary opacities, left greater than right. The patient is rotated [place], limiting interpretation. A right IJ dialysis catheter [...] MD Technologist: RT Rogelio(R) Trnscrd Date/Time/By: 04/07/2020 (2702) : By: DayTDO Orig Print D/T: S: 04/07/2020 (5735) PAGE 1 Signed ReportUA RFLX MICR CULT IF [id number] 09:45:00 Test Item Value Reference Range Interpretation [...] POTASSIUM (test code = 6.3 mEq/L 3.4-5.0 Criti josette result K) called to Patel DANIEL [facility] at 01 1504/07/20Nurse marcelle estrella back result and tech confirmed it's [...]
[2020-09-16] MEDS ORDERED: NA CHLORIDE 0.9% 500 ML ONE ×2 (02:13→08:38)
[2020-09-16] MEDS ORDERED: D50W 50 ML IV ONE (02:15)
[2020-09-16 02:21] LABS: Protime INR 1.62
[2020-09-16 02:23] LABS: Absolute Lymphocytes (CBC) 2.6 K/uL (0.7-4.9); Basophils % 0.2 % (0-1.3); Lymphocytes % 12.1 % (15.3-44.8); MPV 7.3 fL (7.6-11.3); RBC Red Blood Cell Count 2.36 M/uL (4.33-5.43)
[2020-09-16 02:32] LABS: Hematocrit 20.1 % (39.6-49.0)
[2020-09-16 02:59] LABS: AST/SGOT 68 U/L (15-37); Albumin 1.4 g/dL (3.4-5.0); Alkaline Phosphatase 411 U/L (45-117); BUN Blood Urea Nitrogen 16 mg/dL (7-18); Bicarbonate 24 mmol/L (21-32); Bilirubin Direct 0.3 mg/dL (0-0.2); Bilirubin Total 0.8 mg/dL (0.2-1.0); Glucose Level 66 mg/dL (74-106); Magnesium 1.7 mg/dL (1.8-2.4); NT PRO-BNP 8786 pg/mL (<125); Sodium Level 138 mmol/L (136-145); Troponin (Emerg Dept Use Only) 0.05 ng/mL (0.0-0.045)
[2020-09-16 03:02] LABS: ALT/SGPT < 6 U/L (12-78); Potassium 2.8 mmol/L (3.5-5.1)
[2020-09-16] MEDS ORDERED: NA CHLORIDE 0.9% 100 ML ONE (03:15)
[2020-09-16] MEDS ORDERED: CEFEPIME 2 GM VIAL ONE (03:15)
[2020-09-16 04:04] LABS: Lipase 25 U/L (73-393)
[2020-09-16] MEDS ORDERED: KCL 20 MEQ/100 mL IVPB 20 MEQ/100 ML BAG IV ONE (04:26)
[2020-09-16] MEDS ORDERED: Meropenem 1 GM/100 ML BAG ONE (04:27)
[2020-09-16 04:49] LABS: Barbiturates NEGATIVE (NEGATIVE); Benzodiazepines NEGATIVE (NEGATIVE); Cocaine NEGATIVE (NEGATIVE); METHAMPHETAM NEGATIVE (NEGATIVE); Methadone NEGATIVE (NEGATIVE); Opiates NEGATIVE (NEGATIVE); Phencyclidine NEGATIVE (NEGATIVE); THC Cannibis NEGATIVE (NEGATIVE)
[2020-09-16 04:50] LABS: Blood Morphology Comment NOT SEEN (NOT SEEN); Platelet Estimate ADEQ
[2020-09-16 05:26] LABS: Urine Bacteria >50 /HPF (NONE SEEN); Urine RBC >50 /HPF (NONE SEEN)
--- NOTE | 2020-09-16 06:34 | ER ---
Nurse's Notes [facility] Name: Eliezer Menjivar Age: 70 yrs Sex: Male : 1950 Arrival Date: 09/16/2020 Time: 01:41 Bed 5 Private MD: Diagnosis: Sepsis;Obstuctive Uropathy, Bilateral;Urinary Tract Infection, Pyuria Presentation: 09/16 01:41 Chief complaint: EMS states: Toned to [facility] staff reported three hours ago pt was ea feeding self and was A and Ox3. Staff reports now he altered and is not responding, BP per nursing staff was 77 systolic EMS reported their manual BP was in the 70's, they initiated 20 G IV to left forearm, EMS gave 1 L of NS and strarted a second one en route, BP went up to 120s but was trending down. Coronavirus screen: At this time, the client does not indicate any symptoms associated with coronavirus-19. Ebola Screen: No symptoms or risks identified at this time. Initial Sepsis Screen: Does the patient meet any 2 criteria? Systolic BP < 90 mmHg. HR > 90 bpm. Does the patient have a suspected source of infection? No. Patient's initial sepsis screen is negative. Risk Assessment: Do you want to hurt yourself or someone else? Patient reports no desire to harm self or others. Onset of symptoms was September 16, 2020. 01:41 Method Of Arrival: EMS: [facility] ea 01:41 Acuity: REYNALDO 2 ea Historical: - Allergies: 01:47 No Known Allergies; ea - PMHx: 01:47 CHF; CVA; Dialysis; ESRD; Hyperlipidemia; Hypertension; PROSTATE CA; R sided paralysis ea following CVA; - Immunization history:: Adult Immunizations up to date. - Social history:: Smoking status: unknown. Screenin:45 Abuse screen: Denies threats or abuse. Nutritional screening: No deficits noted. ea Tuberculosis screening: No symptoms or risk factors identified. Fall Risk IV access (20 points). Assessment: 01:47 General: Appears ill, Behavior is quiet. Pain: Unable to use pain scale. FLACC scale ea score is 2 out of 10. Neuro: Level of Consciousness is responds to verbal stimulus. Cardiovascular: Patient's skin is warm and dry. Respiratory: Airway is patent Respiratory effort is even, unlabored, Respiratory pattern is regular, symmetrical. : Menendez in place Urine is cloudy. Derm: Skin is dry, Skin is normal, Skin temperature is hot. 02:30 Reassessment: Patient and/or family updated on plan of care and expected duration. Pain ea level reassessed. Pt resting with eyes closed, respirations even and unlabored. Chest expansions even and symmetrical. 03:30 Reassessment: Patient and/or family updated on plan of care and expected duration. Pain ea level reassessed. Pt resting with eyes closed, respirations even and unlabored, chest expansions even and unlabored. 04:41 Reassessment: Patient and/or family updated on plan of care and expected duration. Pain ea level reassessed. Pt resting with eyes closed respirations even and unlabored. Chest expansions even and symmetrical. 06:31 Reassessment: central line placed to right femoral vein by Dr. Montalvo, pt started on iw Levophed drip at 5 mcg/min, BP up to 92/61. 07:05 Reassessment: Pt lethargic, SBP 80s, levophed increased form 5 to 10mcg/min. Awaiting hb transfer to higher level of care. 07:18 Reassessment: Report called to Ivonne BRITO at [facility]. hb 08:00 Reassessment: No changes from previously documented assessment. Patient and/or family hb updated on plan of care and expected duration. Pain level reassessed. 08:45 Reassessment: Patient appears in no apparent distress at this time. No changes from hb previously documented assessment. Patient and/or family updated on plan of care and expected duration. Pain level reassessed. Vital Signs: 01:41 BP 82 / 52; Pulse 109; Resp 28; Temp 98.4(O); Pulse Ox 98% on R/A; ea 03:00 Weight 72.57 kg; lp1 03:02 BP 82 / 58; Pulse 100; Resp 20; Pulse Ox 97% on R/A; ea 06:31 BP 92 / 61; Pulse 81; Resp 16; Pulse Ox 100% on R/A; iw 07:00 BP 83 / 56; Pulse 78; Resp 18; Pulse Ox 94% on R/A; hb 07:15 BP 93 / 61; Pulse 81; Resp 18; Pulse Ox 95% on R/A; hb 07:45 BP 90 / 56; Pulse 80; Resp 21; Pulse Ox 96% ; hb 08:00 BP 92 / 68; Pulse 81; Resp 19; Pulse Ox 99% on 2 lpm NC; hb 08:15 BP 94 / 66; Pulse 82; Resp 21; Pulse Ox 99% on 2 lpm NC; hb 08:30 BP 90 / 58; Pulse 82; Resp 20; Pulse Ox 98% 2 lpm ; hb 08:45 BP 94 / 76; Pulse 79; Resp 20; Pulse Ox 99% on 2 lpm NC; hb ED Course: 01:41 Patient arrived in ED. ea 01:45 Triage completed. ea 01:45 Maintain EMS IV. Dressing intact. Good blood return noted. Site clean \T\ dry. Gauge \T\ ea site: 20G to left forearm. 01:45 Arm band placed on right wrist. Patient placed in an exam room, on a stretcher, on ea pulse oximetry. 01:45 Patient has correct armband on for positive identification. Placed in gown. Bed in low ea position. Call light in reach. Side rails up X2. pvc monitor on. Pulse ox on. NIBP on. 01:46 David Montalvo MD is Attending Physician. mh7 02:00 Inserted saline lock: 20 gauge in left forearm, using aseptic technique. Blood lp1 collected. 02:00 Initial lab(s) drawn, by me, sent to lab. First set of blood cultures drawn by me. lp1 02:10 Cindy Fortune, RN is Primary Nurse. ea 02:11 XRAY Chest (1 view) In Process Unspecified. EDMS 02:37 CT Head Brain wo Cont In Process Unspecified. EDMS 03:03 No provider procedures requiring assistance completed. Patient admitted, IV remains in ea place. 03:12 Notified ED physician of a critical lab result(s). POTASSIUM OF 2.8. rv 04:10 CT Chest Abdomen Pelvis W/O Contrast In Process Unspecified. EDMS 06:13 Assisted provider with central line placement. Set up central line tray. Triple lumen iw line placed in right femoral. Line placed by David Montalvo MD Placement verified by blood return, Dressed with 4X4s, Tape, Tegaderm, Patient tolerated well. 06:14 initiated a transfer with Flora from the [facility]. eb 06:[address] Menjivar the ED doctor integrated logistics operations manager for [facility] with Dr. Montalvo for patient transfer consultation. 06:27 administrative approval given by Shannan Bernard/ patient has been accepted to [facility]/ Dr. Joseph Menjivar has accepted the patient in transfer/ report to be called to the ER at [phone]. Administered Medications: 02:03 Drug: NS 0.9% 500 ml Route: IV; Rate: bolus; Site: left forearm; ea 02:35 Follow up: IV Status: Completed infusion; IV Intake: 500ml lp1 02:04 Drug: D50W 25 ml Route: IVP; Site: left forearm; ea 03:17 Follow up: Response: Blood sugar is elevated lp1 03:05 Drug: Cefepime 1 grams Route: IVPB; Rate: 200 ml/hr; Infused Over: 30 mins; Site: left lp1 forearm; 04:20 Drug: Meropenem 1 grams Route: IV; Rate: calculated rate; Site: left antecubital; ea 04:21 Drug: Potassium Chloride 20 mEq Route: IV; Rate: calculated rate; Site: left forearm; ea 06:26 Drug: Levophed (norepinephrine) (4 mg/250 mL D5W 4 mcg/min Route: IV; Rate: calculated iw rate; Site: right femoral; Intake: 02:35 IV: 500ml; Total: 500ml. lp1 Outcome: 06:33 ER care complete, transfer ordered by . mh7 09:01 Patient left the ED. Addendum: 09/18/2020 09:08 Addendum: Other pt niece called would like us to keep an eye out for pts cell b d phone....[phone]. 09/21/2020 08:03 Addendum: Culture Results: Positive urine culture. Positive blood culture. called and e b spoke with Nora/ patient was moved from the ED to 1067/ faxed over culture report to [phone]. Signatures: Dispatcher [employer] EDMS Farzana Austin Irene, RN RN iw Pena, Laura, RN RN lp1 Nora Jones RN RN Cindy Fortune RN RN ea Botello, Elizabeth eb Vicente, Ronaldo, RN RN rv Holmes, Maurice, MD MD mh7 Corrections: (The following items were deleted from the chart) 05 01:57 01:41 Acuity: REYNALDO 3 ea ea 07:44 07:44 BP 90 / 56; Pulse 80bpm; Resp 21bpm; Pulse Ox 96%; hb hb 09:01 07:44 BP 90 / 56; Pulse 80bpm; Resp 21bpm; Pulse Ox 96%; hb hb
--- NOTE | 2020-09-16 06:34 | EDPHYS ---
Physician Documentation [facility] Name: Eliezer Menjivar Age: 70 yrs Sex: Male : 1950 Arrival Date: 09/16/2020 Time: 01:41 Bed 5 Private MD: ED Physician David Montalvo HPI: 09/16 02:43 This 70 yrs old Black Male presents to ER via EMS with complaints of Altered Mental mh7 Status. 02:43 The patient presents with decreased mental status. mh7 02:44 Onset: The symptoms/episode began/occurred today, at an unknown time. Possible causes: mh7 unknown. Associated signs and symptoms: Pertinent negatives: abdominal pain, agitation, ataxia, blurred vision, chest pain, combativeness, diaphoresis, diarrhea, dizziness, headache, lightheadedness, nausea, numbness, palpitations, seizure, shortness of breath, tingling, vertigo, vomiting. Current symptoms: In the emergency department the patient's symptoms have improved, moderately, is more alert. Historical: - Allergies: 01:47 No Known Allergies; ea - PMHx: 01:47 CHF; CVA; Dialysis; ESRD; Hyperlipidemia; Hypertension; PROSTATE CA; R sided paralysis ea following CVA; - Immunization history:: Adult Immunizations up to date. - Social history:: Smoking status: unknown. ROS: 02:44 Constitutional: Negative for fever, chills, and weight loss, Eyes: Negative for injury, mh7 pain, redness, and discharge, ENT: Negative for injury, pain, and discharge, Neck: Negative for injury, pain, and swelling, Cardiovascular: Negative for chest pain, palpitations, and edema, Respiratory: Negative for shortness of breath, cough, wheezing, and pleuritic chest pain, Abdomen/GI: Negative for abdominal pain, nausea, vomiting, diarrhea, and constipation, Back: Negative for injury and pain, : Negative for injury, bleeding, discharge, and swelling, MS/Extremity: Negative for injury and deformity, Skin: Negative for injury, rash, and discoloration, Psych: Negative for depression, anxiety, suicide ideation, homicidal ideation, and hallucinations, Allergy/Immunology: Negative for hives, rash, and allergies, Endocrine: Negative for neck swelling, polydipsia, polyuria, polyphagia, and marked weight changes, Hematologic/Lymphatic: Negative for swollen nodes, abnormal bleeding, and unusual bruising. Exam: 02:44 Head/Face: Normocephalic, atraumatic. Eyes: Pupils equal round and reactive to light, mh7 extra-ocular motions intact. Lids and lashes normal. Conjunctiva and sclera are non-icteric and not injected. Cornea within normal limits. Periorbital areas with no swelling, redness, or edema. 02:44 Neck: Trachea midline, no thyromegaly or masses palpated, and no cervical lymphadenopathy. Supple, full range of motion without nuchal rigidity, or vertebral point tenderness. No Meningismus. Chest/axilla: Normal chest wall appearance and motion. Nontender with no deformity. No lesions are appreciated. 02:44 Abdomen/GI: Soft, non-tender, with normal bowel sounds. No distension or tympany. No guarding or rebound. No evidence of tenderness throughout. Back: No spinal tenderness. No costovertebral tenderness. Full range of motion. Skin: Warm, dry with normal turgor. Normal color with no rashes, no lesions, and no evidence of cellulitis. 02:44 Constitutional: The patient appears alert, awake, frail, obviously ill. 02:44 ENT: Mouth: Lips: dry, cracked, Oral mucosa: dry. 02:44 Cardiovascular: Rate: tachycardic, Rhythm: regular, Pulses: no pulse deficits are appreciated, Heart sounds: normal, normal S1and S2, Edema: is not appreciated, JVD: is not appreciated. 02:44 Respiratory: mild respiratory distress is noted, Respirations: prolonged exhalation, that is mild, Breath sounds: rhonchi, that are moderate, are scattered, Respiratory rate: 28 07:08 MS/ Extremity: Pulses equal, no cyanosis. Neurovascular intact. Full, normal range mh7 of motion. 07:08 Musculoskeletal/extremity: ROM: right paresis, baseline. 07:08 Neuro: Orientation: is normal, Mentation: is normal, Memory: is normal, Cranial nerves: grossly normal, Cerebellar function: is grossly normal, Motor: right paresis, baseline, Sensation: is normal, Gait: not tested. seizure activity, is not displayed by the patient, Abnormal movements: there are no abnormal movements. Vital Signs: 01:41 BP 82 / 52; Pulse 109; Resp 28; Temp 98.4(O); Pulse Ox 98% on R/A; ea 03:00 Weight 72.57 kg; lp1 03:02 BP 82 / 58; Pulse 100; Resp 20; Pulse Ox 97% on R/A; ea 06:31 BP 92 / 61; Pulse 81; Resp 16; Pulse Ox 100% on R/A; iw 07:00 BP 83 / 56; Pulse 78; Resp 18; Pulse Ox 94% on R/A; hb 07:15 BP 93 / 61; Pulse 81; Resp 18; Pulse Ox 95% on R/A; hb 07:45 BP 90 / 56; Pulse 80; Resp 21; Pulse Ox 96% ; hb 08:00 BP 92 / 68; Pulse 81; Resp 19; Pulse Ox 99% on 2 lpm NC; hb 08:15 BP 94 / 66; Pulse 82; Resp 21; Pulse Ox 99% on 2 lpm NC; hb 08:30 BP 90 / 58; Pulse 82; Resp 20; Pulse Ox 98% 2 lpm ; hb 08:45 BP 94 / 76; Pulse 79; Resp 20; Pulse Ox 99% on 2 lpm NC; hb Procedures: 07:08 Central Line: the site was prepped with Betadine, in sterile fashion, a triple lumen mh7 catheter was inserted, in the right femoral vein, in 1 attempts. placement was verified, by blood return, the site was dressed with using sterile technique, the patient tolerated the procedure, well. MDM: 06:30 Differential Diagnosis: electrolyte abnormality, hypoglycemia, intracranial bleed, mh7 pneumonia, sepsis, UTI, volume depletion. Data reviewed: vital signs, nurses notes, EMS record, skilled nursing records, old medical records, lab test result(s), cardiac enzymes, CBC, electrolytes, urinalysis, EKG, radiologic studies, CT scan, plain films. Data interpreted: Pulse oximetry: on room air is 97 %. Interpretation: normal. Counseling: I had a detailed discussion with the patient and/or guardian regarding: the historical points, exam findings, and any diagnostic results supporting the discharge/admit diagnosis, lab results, radiology results, the need to transfer to another facility, for higher level of care, [facility] does not immediately have the required specialist. Response to treatment: the patient's symptoms have mildly improved after treatment. 06:33 Patient medically screened. [facility] 09/16 01:49 Order name: Basic Metabolic Panel [facility] 09/16 01:49 Order name: CBC with Diff [facility] 09/16 01:49 Order name: LFT's; Complete Time: 04:48 [facility] 09/16 01:49 Order name: Magnesium; Complete Time: 04:48 [facility] 09/16 01:49 Order name: NT PRO-BNP; Complete Time: 04:48 [facility] 09/16 01:49 Order name: PT-INR; Complete Time: 02:34 [facility] 09/16 01:49 Order name: Troponin (emerg Dept Use Only); Complete Time: 04:48 [facility] 09/16 01:49 Order name: Urine Culture [facility] 09/16 01:49 Order name: Basic Metabolic Panel; Complete Time: 04:48 [facility]MS 09/16 01:49 Order name: CBC with Automated Diff; Complete Time: 05:18 [facility]MS 09/16 01:50 Order name: UDS; Complete Time: 05:18 [facility] 09/16 01:51 Order name: Lactate; Complete Time: 02:34 [facility] 09/16 01:51 Order name: Procalcitonin; Complete Time: 03:26 [facility] 09/16 01:51 Order name: Blood Culture Adult (2) [facility] 09/16 01:49 Order name: CT Head Brain wo Cont; Complete Time: 20:08 [facility] 09/16 01:49 Order name: XRAY Chest (1 view); Complete Time: 16:03 [facility] 09/16 02:05 Order name: Glucose, Ancillary Testing; Complete Time: 02:34 EDMS 09/16 02:32 Order name: Manual Differential; Complete Time: 05:18 EDMS 09/16 02:55 Order name: ABO/RH typing [facility] 09/16 02:55 Order name: Antibody Screen [facility] 09/16 03:28 Order name: CT Chest Abdomen Pelvis W/O Contrast; Complete Time: 20:08 la1 09/16 03:37 Order name: Glucose, Ancillary Testing; Complete Time: 03:50 EDMS 09/16 03:58 Order name: Lipase; Complete Time: 04:48 EDMS 09/16 04:18 Order name: SARS-COV-2 RT PCR; Complete Time: 04:48 EDMS 09/16 05:25 Order name: Urine Microscopic Only; Complete Time: 06:06 EDMS 09/16 01:49 Order name: EKG; Complete Time: 01:50 09/16 01:49 Order name: Cardiac monitoring; Complete Time: 02:06 09/16 01:49 Order name: EKG - Nurse/Tech; Complete Time: 02:06 09/16 01:49 Order name: IV Saline Lock; Complete Time: 02:06 09/16 01:49 Order name: Labs collected and sent; Complete Time: 02:06 09/16 01:49 Order name: O2 Per Protocol; Complete Time: 02:06 09/16 01:49 Order name: O2 Sat Monitoring; Complete Time: 02:06 7 Administered Medications: 02:03 Drug: NS 0.9% 500 ml Route: IV; Rate: bolus; Site: left forearm; ea 02:35 Follow up: IV Status: Completed infusion; IV Intake: 500ml lp1 02:04 Drug: D50W 25 ml Route: IVP; Site: left forearm; ea 03:17 Follow up: Response: Blood sugar is elevated lp1 03:05 Drug: Cefepime 1 grams Route: IVPB; Rate: 200 ml/hr; Infused Over: 30 mins; Site: left lp1 forearm; 04:20 Drug: Meropenem 1 grams Route: IV; Rate: calculated rate; Site: left antecubital; ea 04:21 Drug: Potassium Chloride 20 mEq Route: IV; Rate: calculated rate; Site: left forearm; ea 06:26 Drug: Levophed (norepinephrine) (4 mg/250 mL D5W 4 mcg/min Route: IV; Rate: calculated iw rate; Site: right femoral; Disposition: 09/16/20 06:33 [facility] Diagnosis are Sepsis, Obstuctive Uropathy, Bilateral, Urinary Tract Infection, Pyuria. - Reason for transfer: Higher level of care. - Accepting physician is Dr. Menjivar. - Condition is Serious. - Problem is new. - Symptoms have improved. Signatures: Dispatcher [employer] EDCarri Zarate RN RN iw Nieto, Roman, MD MD rn Pena, Laura, RN RN lp1 Armaan Morse, BUSINESS RULES ANALYST-C BUSINESS RULES ANALYST-Cla1 Nora Jones RN RN hb Antunez, Elena, RN RN ea Holmes, Maurice, MD MD 7 Corrections: (The following items were deleted from the chart) 02:04 01:52 CORONAVIRUS+MR.LAB.BRZ ordered. EDMS EDMS 03:46 02:41 TYPE AND SCREEN+BB.LAB.BRZ ordered. EDMS EDMS 03:57 03:53 LIPASE+C.LAB.BRZ ordered. EDMS EDMS 06:34 06:33 09/16/2020 06:33 Transfer ordered to [facility]. Diagnosis is Urinary tract [facility] infection, site not specified; Sepsis; Obstuctive Uropathy, Bilateral. Reason for transfer: Higher level of care. Accepting physician is Dr. Menjivar. Condition is Serious. Problem is new. Symptoms have improved. [facility] 09:01 06:34 09/16/2020 06:33 Transfer ordered to [facility]. Diagnosis is Sepsis; Obstuctive hb Uropathy, Bilateral; Urinary Tract Infection, Pyuria. Reason for transfer: Higher level of care. Accepting physician is Dr. Menjivar. Condition is Serious. Problem is new. Symptoms have improved. mh7
[2020-09-16] MEDS ORDERED: NOREPINEPHRINE 4mg/D5W 250mL 4 MG/250 ML BAG IV ONE (06:35)
[2020-09-16 09:09] VITALS: TEMP 98.4
[2020-09-16 09:22] VITALS: BP 94/76; O2SAT 99
--- NOTE | 2020-09-16 11:45 | RAD REPORT ---
EXAM DESCRIPTION: RAD - Chest Single View - 09/16/2020 2:12 am CLINICAL HISTORY: AMS Chest pain. COMPARISON: Chest Single View dated 08/29/2020 FINDINGS: Portable technique limits examination quality. Bilateral pulmonary opacities are noted, greatest in the left lung base, likely representing pulmonar y edema or pneumonia. The heart is moderately enlarged in size. Right-sided venous catheter is unchan ged in position.
--- NOTE | 2020-09-17 09:20 | EKG ---
Test Date: 2020-09-16 Test Time: 01:47:49 [employer] Worker: ROSINA MEASUREMENT RESULTS: Intervals: Rate: 105 [place]: 168 QRSD: 86 QT: 372 QTc: 491 [place]: P: 33 NJ: 168 QRS: 35 T: 58 INTERPRETIVE STATEMENTS: Sinus tachycardia Otherwise normal ECG Compared to ECG 08/29/2020 12:29:33 Accelerated junctional rhythm no longer present T-wave abnormality no longer present Prolonged QT interval no longer present Electronically Signed On 09-17-20 09:17:24 CDT by Fabián Alarcon
--- NOTE | 2020-09-17 11:41 | RAD REPORT ---
EXAM DESCRIPTION: CT Chest, Abdomen, and Pelvis COMPARISON: None. CLINICAL HISTORY: [facility] MAIN leaukocytosis, elev. procal TECHNIQUE: CT images through the chest, abdomen, and pelvis without IV contrast. Multiplanar reforma ts. Automated exposure control was utilized on this examination as a dose lowering technique. CT CHEST FINDINGS: Heart and mediastinum: Heart size is normal. There is a small pericardial effusio n. A right IJ central catheter has its tip at the atriocaval junction/proximal right atrium. Lymphade nopathy may be present but not easily visualized due to lack of IV contrast. Thyroid gland: There is a 3.7 cm peripherally calcified left thyroid nodule. Lungs: Numerous bilateral pulmonary nodules are present, predominantly in the lung bases. The largest nodule measures 1.5 cm in the left lower lobe on series 201 image 41. There is bibasilar atelectasis . Airways: No bronchiectasis. No filling defects in the major airways. Pleura: No pneumothorax. Large right and moderate left pleural effusion. Musculoskeletal and soft tissues: Moderate anasarca. Numerous sclerotic osseous metastases are presen t throughout the axial and appendicular skeleton. CHEST IMPRESSION: 1. Numerous pulmonary and osseous metastases are present. 2. Small pericardial effusion. 3. Large right and moderate left pleural effusions with dependent atelectasis. 4. Moderate anasarca. 5. 3.7 cm left thyroid nodule. This may warrant evaluation with ultrasound if clinically indicated. CT ABDOMEN & PELVIS FINDINGS: *Evaluation of solid organs is limited due to lack of IV contrast. Liver: Normal. Gallbladder and biliary: Normal gallbladder. Unremarkable biliary tree. Pancreas: Normal. Spleen: Normal. Kidneys and adrenal glands: Normal adrenal glands. Severe bilateral hydronephrosis with cystic calyce al changes bilaterally. There is hyperdense material within the left collecting system. 2.6 cm left r enal cyst. Stomach and Small Bowel: The stomach and small bowel are normal. Urinary bladder: Menendez catheter in place. Intravesicular air is likely iatrogenic. Wall thickening is present. Prostate/Male Urogenital: Normal. Colon and Appendix: The colon is unremarkable. No evidence of appendicitis. Peritoneal cavity: Mild ascites. No intraperitoneal free air. Retroperitoneum and lymph nodes: Para-aortic adenopathy is present but not well visualized. The large st focal matted nodes left of the aorta measure 2.9 x 2.0 x 4.0 cm on series 201 image 70. Adenopathy extends inferiorly to the iliac regions. A right external iliac lymph node is ill-defined but measur es approximately 2.7 cm in short axis. This is on series 201 image 105. Multiple perirectal lymph nod es are present. Vascular: Moderate calcified atherosclerosis. Musculoskeletal and soft tissues: Severe anasarca. Diffuse sclerotic osseous metastases are present. No compression fracture. ABDOMEN AND PELVIS IMPRESSION: 1. Severe bilateral hydronephrosis. Hyperdense material in the left c ollecting system could represent blood products or infection. 2. Bladder wall thickening may indicate cystitis. 3. Abdominal pelvic adenopathy is likely neoplastic. It is incompletely characterized due to the lack of IV contrast. Multiple perirectal lymph nodes are present. No definite primary is visualized, engel ashwini prostate, bladder, or rectal origins are likely given jose distribution. Diffuse sclerotic osseo us metastases are also present. 4. Severe anasarca and mild ascites. 5. Moderate atherosclerosis. Electronically signed by: Noah Tejeda MD 09/16/2020 4:54 AM CDT Due to temporary technical issues with the PACS/Fluency reporting system, reports are being signed by the in house radiologists without review as a courtesy to insure prompt reporting. The interpreting radiologist is fully responsible for the content of the report.
--- NOTE | 2020-09-17 14:21 | RAD REPORT ---
EXAM DESCRIPTION: CT of the head without contrast CLINICAL HISTORY: AMS COMPARISON: None available TECHNIQUE: Axial CT of the head obtained from the skull apex to the skull base without contrast. Thi s exam was performed according to our departmental dose-optimization program, which includes automate d exposure control, adjustment of the mA and/or kV according to patient size and/or use of iterative reconstruction technique. FINDINGS: No acute intracranial hemorrhage identified. No mass, mass effect, shift of the midline, a bnormal extra-axial fluid collection or CT evidence of acute ischemic change identified. The ventricu lar system and sulcal spaces are mildly enlarged compatible with mild cerebral atrophy. Scattered a reas of hypodensity throughout the supratentorial white matter are nonspecific and may be related to chronic small vessel ischemic change. Remote left basal ganglia infarction. The visualized paranasal sinuses and mastoid air cells are well aerated. No skull fracture identifi ed. Visualized orbits and globes are unremarkable. Atherosclerotic calcification of the intracranial internal carotid arteries. IMPRESSION: 1. No acute intracranial abnormality by CT criteria. Electronically signed by: Jurgen Silveira 09/16/2020 2:51 AM CDT Due to temporary technical issues with the PACS/Fluency reporting system, reports are being signed by the in house radiologists without review as a courtesy to insure prompt reporting. The interpreting radiologist is fully responsible for the content of the report.
== END 2020-09-16 09:01 | disposition short-term general hospital (02) ==
LOC: ER 01:40 → UNDOADMIN 05:30 → ERHOLD 05:30
PROC: 06HM33Z Insertion of Infusion Device into Right Femoral Vein, Percutaneous Approach (ICD-10-PCS; principal; 2020-09-16)
DX: A41.9 Sepsis, unspecified organism (principal); N39.0 Urinary tract infection, site not specified; Z20.822 Contact with and (suspected) exposure to COVID-19; N13.9 Obstructive and reflux uropathy, unspecified; C61 Malignant neoplasm of prostate; I13.2 Hypertensive heart and chronic kidney disease with heart failure and with stage 5 chronic kidney disease, or end stage renal disease; N18.6 End stage renal disease; Z99.2 Dependence on renal dialysis; I50.9 Heart failure, unspecified; I69.351 Hemiplegia and hemiparesis following cerebral infarction affecting right dominant side; E78.5 Hyperlipidemia, unspecified; C78.01 Secondary malignant neoplasm of right lung; C78.02 Secondary malignant neoplasm of left lung; C79.51 Secondary malignant neoplasm of bone
CPT/HCPCS: 93005; 36569; 87040 ×2; 87088; 85025; 87086; 80048; 36415; 86900; 83735; 86850; 87205 ×2; 85610; 86901; 82947 ×2; 80076; 80307 ×8; 83605; 87077 ×2; 87186 ×2; 81015; 84484; 83690; 84145; 83880; 70450; 71250; 74176; 71045; 99285; 36556; U0003; J3480; J0692; J2185; J7040 ×2

== ENCOUNTER 2020-10-27 10:31 | Emergency (ER) | payer OTHER ==
[2020-10-27 11:54] LABS: Absolute Lymphocytes (CBC) 1.7 K/uL (0.7-4.9); Hematocrit 32.7 % (39.6-49.0); Lymphocytes % 29.8 % (15.3-44.8); MPV 6.3 fL (7.6-11.3); RBC Red Blood Cell Count 3.57 M/uL (4.33-5.43)
--- NOTE | 2020-10-27 11:58 | RAD REPORT ---
EXAM DESCRIPTION: CT - Abdomen Pelvis Wo Contrast - 10/27/2020 11:43 am CLINICAL HISTORY: pulled out nephrostomy tube COMPARISON: <Comparisons> TECHNIQUE: Axial [address] imaging of the abdomen and pelvis was performed without IV contrast. No IV contrast was given because of allergy, abnormal renal function, patient refusal or physician re quest. No oral contrast given. All CT scans are performed using dose optimization technique as appropriate and may include automated exposure control or mA/KV adjustment according to patient size. FINDINGS: Small to moderate bilateral pleural effusions are present with partial lower lobe atelecta sis. No cardiomegaly or pericardial effusion. The liver, spleen and pancreas show no suspicious findings on non-contrast imaging. Gallbladder and b iliary tree are also without suspicious finding. Gallstones can be occult on CT imaging. Percutaneous nephrostomy tube is present on the right. No hydronephrosis of either kidney. Partially exophytic lower pole 2.8 centimeter cyst noted on the left. No significant adrenal finding. Isodense renal masses and pyelonephritis cannot be excluded in the absence of IV contrast. Partially filled u rinary bladder shows circumferential wall thickening. No dilated bowel loops or bowel wall thickening. No acute bowel finding confirmed. Hyperdense medicat ion or contrast material seen in the colon which contains moderate stool the level of the rectum. Rec elizabeth is dilated to 8.6 cm by large stool volume. No free air or pneumatosis. There is a large amount of fluid retained in the subcutaneous fatty tiss ues with peritoneal or retroperitoneal fluid retention. Ascites volume is minimal. No hernia, mass or bulky lymphadenopathy. No suspicious bony findings. IMPRESSION: Noncontrast CT imaging shows no acute or emergent finding. Anasarca pattern is seen with a large amount of retained fluid in the subcutaneous fatty tissues and to a lesser degree the peritoneal and retroperitoneal spaces. Right-sided percutaneous nephrostomy appearing well positioned. No hydronephrosis of either kidney. Large stool volume dilating the rectum to 8.6 cm. Full assessment is limited is the absence of IV contrast.
[2020-10-27 12:02] LABS: Protime INR 1.59
[2020-10-27 12:15] LABS: Potassium 3.2 mmol/L (3.5-5.1)
[2020-10-27 12:16] LABS: Anisocytosis 1+; Blood Morphology Comment NOTED (NOT SEEN); Hypochromasia 1+; Platelet Estimate ADEQ; Polychromasia SLIGHT; Target Cells FEW; White Blood Cell Scan OK (OK)
[2020-10-27] MEDS ORDERED: LOPERAMIDE HCL 2 MG CAPSULE ONE (12:44)
--- NOTE | 2020-10-27 13:15 | EDPHYS ---
Physician Documentation [facility] Name: Eliezer Menjivar Age: 70 yrs Sex: Male : 1950 Arrival Date: 10/27/2020 Time: 10:52 Bed 6 Private MD: ED Physician Armond Lechuga HPI: 10/27 12:37 This 70 yrs old Black Male presents to ER via EMS with complaints of LEFT NEPHROSTOMY rn ACCIDENTAL REMOVAL. 12:37 Reports accidentally pulled out left nephrostomy tube overnight. No fever. No chills. rn THinks placed about 1 month ago and patient not aware why. Reports some urine output in right nephrostomy tube and from bladder. . Onset: The symptoms/episode began/occurred last night. Severity of symptoms: At their worst the symptoms were mild in the emergency department the symptoms are unchanged. The patient has not experienced similar symptoms in the past. The patient has been recently seen by a physician:. Historical: - Allergies: 11:00 No Known Allergies; bp - Home Meds: 11:00 Unable to obtain [Active]; bp - PMHx: 11:00 CHF; CVA; Dialysis; ESRD; Hyperlipidemia; Hypertension; R sided paralysis following bp CVA; PROSTATE CA; - Immunization history:: Adult Immunizations up to date. - Social history:: Smoking status: unknown. - Family history:: not pertinent. - Hospitalizations: : No recent hospitalization is reported. - Ebola Screening: : No symptoms or risks identified at this time. ROS: 12:37 Constitutional: Negative for fever, chills, and weight loss, Eyes: Negative for injury, rn pain, redness, and discharge, Neck: Negative for injury, pain, and swelling, Cardiovascular: Negative for chest pain, palpitations, and edema, Respiratory: Negative for shortness of breath, cough, wheezing, and pleuritic chest pain, Abdomen/GI: Negative for abdominal pain, nausea, vomiting, diarrhea, and constipation, Back: Negative for injury and pain, MS/Extremity: Negative for injury and deformity, Skin: Negative for injury, rash, and discoloration, Neuro: Negative for headache, weakness, numbness, tingling, and seizure. Exam: 12:37 Constitutional: Thin male, no acute distress Head/Face: Normocephalic, atraumatic. project intern: Regular rate and rhythm. No pulse deficits. Respiratory: No increased work of breathing, no retractions or nasal flaring. Abdomen/GI: soft, non-tender Back: + right nephrostomy tube in place, + left nephrostomy tube stoma with no active bleeding. Skin: Warm, dry MS/ Extremity: Pulses equal, no cyanosis. Neuro: Awake and alert, GCS 15 Vital Signs: 10:53 BP 146 / 98; Pulse 72; Resp 16; Temp 98.1; Pulse Ox 100% ; bp 12:06 BP 150 / 93; Pulse 66; Resp 17; Pulse Ox 100% ; bp 13:00 BP 133 / 57; Pulse 66; Resp 16; Pulse Ox 97% ; bp 13:54 BP 158 / 97; Pulse 74; Resp 16; Temp 98; Pulse Ox 98% ; bp MDM: 10:52 Patient medically screened. rn 13:06 Differential Diagnosis UTI, pulled nephrostomy tube. Data reviewed: vital signs, nurses rn notes, lab test result(s), radiologic studies, and as a result, I will admit patient. 13:13 Counseling: I had a detailed discussion with the patient and/or guardian regarding: the rn historical points, exam findings, and any diagnostic results supporting the discharge/admit diagnosis, lab results, radiology results, the need to transfer to another facility, [facility] does not immediately have the required specialist. ED course: Accepted for transfer to [facility], will be ER-ER, and plan for nephrostomy tube replacement.. 10/27 10:55 Order name: CBC with Diff; Complete Time: 12:58 rn 10/27 10:55 Order name: Basic Metabolic Panel; Complete Time: 12:58 rn 10/27 10:55 Order name: Protime (+inr); Complete Time: 12:58 rn 10/27 10:55 Order name: Ptt, Activated; Complete Time: 12:58 rn 10/27 11:57 Order name: CBC Smear Scan; Complete Time: 12:58 EDMS 10/27 10:55 Order name: IV Start; Complete Time: 11:42 rn 10/27 11:05 Order name: CT Abd/Pelvis - Without Contrast; Complete Time: 12:05 rn Administered Medications: 12:29 Drug: Loperamide 4 mg Route: PO; bp 12:29 Follow up: Response: No adverse reaction bp Disposition: 10/27/20 13:15 Transfer ordered to [facility]. Diagnosis is Accidental displcaement of percutaneous nephrostomy tube, left side. - Reason for transfer: Higher level of care. - Accepting physician is . - Condition is Stable. - Problem is new. - Symptoms are unchanged. Signatures: Dispatcher [employer] [facility] Armond Lechuga MD MD rn Gerri, Solo, RN RN bp Corrections: (The following items were deleted from the chart) 11:10 10:56 Abdomen Pelvis Wo Con+CT.RAD.BRZ ordered. [facility] 13:57 13:15 10/27/2020 13:15 [facility] Diagnosis is Accidental bp displcaement of percutaneous nephrostomy tube, left side. Reason for transfer: Higher level of care. Accepting physician is . Condition is Stable. Problem is new. Symptoms are unchanged. rn
--- NOTE | 2020-10-27 13:15 | ER ---
[facility] Name: Eliezer Menjivar Age: 70 yrs Sex: Male : 1950 Arrival Date: 10/27/2020 Time: 10:52 Bed 6 Private MD: Diagnosis: Accidental displcaement of percutaneous nephrostomy tube, left side Presentation: 10/27 10:53 Chief complaint: EMS states: LEFT NEPHROSTOMY ACCIDENTALLY REMOVED DURING SLEEP. bp Coronavirus screen: At this time, the client does not indicate any symptoms associated with coronavirus-19. Ebola Screen: No symptoms or risks identified at this time. Initial Sepsis Screen: Does the patient meet any 2 criteria? No. Patient's initial sepsis screen is negative. Does the patient have a suspected source of infection? No. Patient's initial sepsis screen is negative. Risk Assessment: Do you want to hurt yourself or someone else? Patient reports no desire to harm self or others. Onset of symptoms is unknown. Care prior to arrival: Glucose check: 103. 10:53 Method Of Arrival: EMS: [facility] bp 10:53 Acuity: REYNALDO 3 bp Triage Assessment: 11:00 General: Appears in no apparent distress. comfortable, Behavior is calm, cooperative, bp appropriate for age. Pain: Denies pain. EENT: No deficits noted. Neuro: Level of Consciousness is obeys commands, Oriented to Appropriate for age. Cardiovascular: Rhythm is sinus rhythm. Respiratory: No deficits noted. GI: No signs and/or symptoms were reported involving the gastrointestinal system. : REMAINING RIGHT NEPHROSTOMY, MISSING LEFT NEPHROSTOMY TUBE. Derm: No deficits noted. Musculoskeletal: No deficits noted. Historical: - Allergies: 11:00 No Known Allergies; bp - Home Meds: 11:00 Unable to obtain [Active]; bp - PMHx: 11:00 CHF; CVA; Dialysis; ESRD; Hyperlipidemia; Hypertension; R sided paralysis following bp CVA; PROSTATE CA; - Immunization history:: Adult Immunizations up to date. - Social history:: Smoking status: unknown. - Family history:: not pertinent. - Hospitalizations: : No recent hospitalization is reported. - Ebola Screening: : No symptoms or risks identified at this time. Screenin:00 Abuse screen: Denies threats or abuse. Denies injuries from another. Nutritional bp screening: No deficits noted. Tuberculosis screening: No symptoms or risk factors identified. Fall Risk None identified. Assessment: 11:00 General: SEE TRIAGE NOTE. bp 12:00 Reassessment: No changes from previously documented assessment. Patient and/or family bp updated on plan of care and expected duration. Pain level reassessed. 13:00 Reassessment: Patient appears in no apparent distress at this time. No changes from bp previously documented assessment. Patient and/or family updated on plan of care and expected duration. Pain level reassessed. TRANSFER IN PROCESS. 13:55 Reassessment: EMS AT B/S FOR TRANSPORT. bp Vital Signs: 10:53 BP 146 / 98; Pulse 72; Resp 16; Temp 98.1; Pulse Ox 100% ; bp 12:06 BP 150 / 93; Pulse 66; Resp 17; Pulse Ox 100% ; bp 13:00 BP 133 / 57; Pulse 66; Resp 16; Pulse Ox 97% ; bp 13:54 BP 158 / 97; Pulse 74; Resp 16; Temp 98; Pulse Ox 98% ; bp ED Course: 10:52 Patient arrived in ED. bp 10:52 Armond Lechuga MD is Attending Physician. rn 10:57 Triage completed. bp 11:00 Patient has correct armband on for positive identification. Bed in low position. Call bp light in reach. Side rails up X2. 11:04 Arm band placed on. bp 11:05 Solo Talley, RN is Primary Nurse. bp 11:13 CT Abd/Pelvis - Without Contrast In Process Unspecified. EDMS 11:40 Inserted saline lock: 22 gauge in left antecubital area, using aseptic technique. Blood bp collected. 12:22 initiated a transfer with Flora from the [facility] transfer center. eb 12:58 connected the Urologist insulation supervisor for [facility] with Dr. Lechuga for patient transfer eb consultation. 12:59 administrative approval given by Shannan Bernard/ patient has been accepted to the [facility] ER for an ER eval/Clarence Matt has accepted the patient in transfer/ report to be called to [phone]. 13:00 contacted patients guanako Menjivar at [phone] to let her know that he is eb being transferred to the ER in [place] where they are hoping to replace the tube and then send him back to his facility. 13:00 No provider procedures requiring assistance completed. Patient transferred, IV remains bp in place. Administered Medications: 12:29 Drug: Loperamide 4 mg Route: PO; bp 12:29 Follow up: Response: No adverse reaction bp Outcome: 13:00 Transferred by ground EMS to [facility]. bp 13:00 Condition: stable 13:00 Instructed on the need for transfer. 13:15 ER care complete, transfer ordered by . rn 13:57 Patient left the ED. bp Signatures: Dispatcher [employer] EDMS Armond Lechuga MD MD rn Peltier, Brian, RN RN Brea Cooper Corrections: (The following items were deleted from the chart) 12:59 12:59 initiated a transfer with Flora from the [facility] transfer center. eb eb
[2020-10-27 14:11] VITALS: BP 158/97; TEMP 98; O2SAT 98
== END 2020-10-27 13:57 | disposition short-term general hospital (02) ==
LOC: ER 10:31
DX: T83.022A Displacement of nephrostomy catheter, initial encounter (principal); Z20.822 Contact with and (suspected) exposure to COVID-19
CPT/HCPCS: 85025; 80048; 36415; 85610; 85730; 74176; 99285; U0003